=== PATIENT | female | born 1955 | race Caucasian/White ===

== ENCOUNTER 2018-04-13 14:37 | Day surgery (SDC) | payer MEDICARE, MEDICAID ==
[~2018-04-13] VITALS: Ht 156.2 cm; Wt 65.8 kg
[2018-04-13] VITALS (9 sets, daily range): BP systolic 105–158; BP diastolic 53–95
[2018-04-13] MEDS ORDERED: diphenhydrAMINE 25mg capsule PO PRN (15:00)
[2018-04-13] MEDS ORDERED: LORazepam 0.5 MG tablet PO PRN (15:00)
[2018-04-13] MEDS ORDERED: normal saline 1000ml 1,000 ML IV SCH ×2 (15:00→18:10)
[2018-04-13] MEDS ORDERED: ALBU2.5V13 NEB (16:34)
[2018-04-13] MEDS ORDERED: LORA10TA7 PO (16:34)
[2018-04-13] MEDS ORDERED: LOSA100T15 PO (16:34)
[2018-04-13] MEDS ORDERED: AMLO5TAB PO (16:34)
[2018-04-13] MEDS ORDERED: MELA3TAB PO (16:34)
[2018-04-13] MEDS ORDERED: AMA100C PO (16:34)
[2018-04-13] MEDS ORDERED: ZOLP10TA5 PO (16:34)
[2018-04-13] MEDS ORDERED: ATOR40TA71 PO (16:34)
[2018-04-13] MEDS ORDERED: OMEP20CA10 PO (16:34)
[2018-04-13] MEDS ORDERED: OXCA300T52 PO (16:34)
[2018-04-13] MEDS ORDERED: MONT10TA21 PO (16:34)
[2018-04-13] MEDS ORDERED: RIVA15TA PO (16:34)
[2018-04-13] MEDS ORDERED: ARIP20TA4 PO (16:34)
[2018-04-13] MEDS ORDERED: VENL150C58 PO (16:34)
[2018-04-13] MEDS ORDERED: OXYB5TAB29 PO (16:34)
[2018-04-13] MEDS ORDERED: pneumococcal 23-VAL P-sac vacc 25 mcg/0.5ml vial IMVAC ONE (17:25)
[2018-04-13] MEDS ORDERED: HYDROcodone/acetaminophen 5mg/325mg tablet PO PRN (18:10)
[2018-04-13] MEDS ORDERED: acetaminophen 325mg tablet PO PRN (18:15)
[2018-04-13] MEDS ORDERED: HYDROcodone/acetaminophen 10/325mg tab PO PRN (18:15)
[2018-04-13] MEDS ORDERED: iohexol 350MG/ML 100ml bottle IV ONE (19:01)
[2018-04-13] MEDS ORDERED: lidocaine 1%/epinephrine 1:100,000 injection 50ml vial ONE (19:01)
[2018-04-13] MEDS ORDERED: iohexol 350 MG/ML 50ML vial IV ONE (19:01)
[2018-04-13] MEDS ORDERED: heparin 1,000unit/ml 10ml vial 10 ML ONE (19:01)
[2018-04-13] MEDS ORDERED: DOPamine 400mg/D5W 250ml 0 ML IV ONE (19:02)
[2018-04-13] MEDS ORDERED: atropine 0.1mg/ml 10ml syringe ONE (19:02)
== END 2018-04-13 20:20 | disposition home or self-care (01) ==
LOC: SSTAY O 14:37
PROVIDERS: ATTEND Internal Medicine Interventional Cardiology
DX: I65.23 Occlusion and stenosis of bilateral carotid arteries (principal); J44.9 Chronic obstructive pulmonary disease, unspecified; I10 Essential (primary) hypertension; I35.0 Nonrheumatic aortic (valve) stenosis; E78.5 Hyperlipidemia, unspecified; F17.210 Nicotine dependence, cigarettes, uncomplicated; F32.9 Major depressive disorder, single episode, unspecified; F12.90 Cannabis use, unspecified, uncomplicated; J96.11 Chronic respiratory failure with hypoxia; K21.9 Gastro-esophageal reflux disease without esophagitis; Z86.69 Personal history of other diseases of the nervous system and sense organs; Z99.81 Dependence on supplemental oxygen; Z90.49 Acquired absence of other specified parts of digestive tract; Z90.89 Acquired absence of other organs; Z79.01 Long term (current) use of anticoagulants; Z86.711 Personal history of pulmonary embolism; Z95.828 Presence of other vascular implants and grafts; Z79.899 Other long term (current) drug therapy; Z98.890 Other specified postprocedural states; Z83.3 Family history of diabetes mellitus
CPT/HCPCS: 36223; 93005; A6257; C1760; C1769; C1894; J1644; J3490; J7030; Q0163; Q9967; A4620; J0461; J1265

== ENCOUNTER 2021-12-06 19:51 | Inpatient (IN) | payer MEDICARE, MEDICAID ==
[~2021-12-06] VITALS: Ht 154.9 cm; Wt 69.0 kg
[~2021-12-06 19:51] MED LIST: ALBU2.5V13 NEB; AMA100C PO; AMLO5TAB PO; ARIP20TA4 PO; ATOR40TA71 PO; LORA10TA7 PO; LOSA100T57 PO; MELA3TAB39 PO; MONT10TA21 PO; OMEP20CA15 PO; OXCA300T52 PO; OXYB5TAB29 PO; RIVA15TA PO; VENL150C58 PO; ZOLP10TA5 PO
[2021-12-06] MEDS ORDERED: normal saline 1000ML IV soln IVB ONE (20:10)
[2021-12-06] MEDS ORDERED: morphine 4 MG/ML inj SYRINge IV PRN (20:10)
[2021-12-06] MEDS ORDERED: ondansetron/PF 4mg/2ml inj IV ONE (20:10)
[2021-12-06] MEDS ORDERED: iohexol 350MG/ML 100ml bottle IV ONE (20:16)
[2021-12-06 20:37] LABS: BASOPHILS # (AUTO) 0.1 X10'3 (0-0.2); BASOPHILS % (AUTO) 0.7 % (0-1); EOSINOPHILS # (AUTO) 0.2 X10'3 (0-0.9); EOSINOPHILS % (AUTO) 0.9 % (0-6); HEMATOCRIT 27.5 % (35.0-45.0); HEMOGLOBIN 8.7 g/dl (12.0-16.0); LYMPHOCYTES # (AUTO) 2.5 X10'3 (1.1-4.8); LYMPHOCYTES % (AUTO) 15.2 % (21-51); MEAN CORPUSCULAR HEMOGLOBIN 22.6 PG (27.0-31.0); MEAN CORPUSCULAR HGB CONC 31.7 g/dL (33.0-36.5); MEAN CORPUSCULAR VOLUME 71.2 FL (78-98); MEAN PLATELET VOLUME 10.2 FL (7.4-10.4); MONOCYTES % (AUTO) 6.1 % (2-12); NEUTROPHILS # (AUTO) 12.8 X10'3 (1.8-7.7); NEUTROPHILS % (AUTO) 77.1 % (42-75); PLATELET COUNT 440 X10'3 (140-440); RED BLOOD COUNT 3.86 X10'6 (4.20-5.60); RED CELL DISTRIBUTION WIDTH 19.2 % (11.5-14.5); WHITE BLOOD COUNT 16.6 X10'3 (4.5-11.0)
[2021-12-06] MEDS ORDERED: piperacillin/tazo 3.375gm/50ml 50 ML IV ONE (20:45)
[2021-12-06 20:55] LABS: ALANINE AMINOTRANSFERASE 13 U/L (12-78); ALBUMIN 3.5 G/DL (3.4-5.0); ALBUMIN/GLOBULIN RATIO 0.9 (1.1-1.5); ALKALINE PHOSPHATASE 111 IU/L (46-116); ANION GAP 14 (8-16); ASPARTATE AMINO TRANSFERASE 11 U/L (10-37); BILIRUBIN,TOTAL 0.5 MG/DL (0.1-1.0); BLOOD UREA NITROGEN 32 MG/DL (7-18); BUN/CREATININE RATIO 14.9 (6.6-38.0); CALCIUM 9.2 MG/DL (8.5-10.1); CHLORIDE 100 MMOL/L (99-107); CREATININE 2.15 MG/DL (0.40-0.90); GLUCOSE 158 MG/DL (70-104); SODIUM 138 MMOL/L (135-145); TOTAL CARBON DIOXIDE 24.5 MMOL/L (24-32); TOTAL PROTEIN 7.3 G/DL (6.4-8.2); eGFR 23 ML/MIN
[2021-12-06 21:04] LABS: HYPOCHROMASIA 1+; PLATELET ESTIMATE NORMAL
[2021-12-06 21:06] LABS: ANISOCYTOSIS 2+; ELLIPTOCYTES 1+; MICROCYTOSIS 1+; SCHISTOCYTES FEW; TARGET CELLS FEW
[2021-12-06 22:36] LABS: CLARITY,URINE CLEAR (Clear); COLOR,URINE YELLOW (Yellow); GLUCOSE, URINE NEGATIVE (Neg); KETONES,URINE NEGATIVE (Neg); LEUKOCYTE ESTERASE ,URINE TRACE (Neg); NITRITES, URINE NEGATIVE (Neg); OCCULT BLOOD,URINE NEGATIVE (Neg); PH,URINE 6.5 (4.8-8.0); PROTEIN,URINE TRACE mg/dl (Neg); UROBILINOGEN,URINE 0.2 E.U/dL (0.2-1.0)
[2021-12-06 22:43] LABS: UA COLLECTION TYPE STRAIGHT CATH
[2021-12-06 22:50] LABS: BACTERIA,URINE FEW /HPF (Neg); RBC,URINE NONE SEEN /HPF (0-2); SQUAMOUS EPITHELIAL CELL,UR FEW /LPF (FEW); TRANSITIONAL EPI CELLS,URINE FEW /HPF; WBC,URINE 0-4 /HPF (0-4)
[2021-12-06] MEDS: pantoprazole 40MG/NS 100ML BAG 100 ML IV SCH (23:44)
[2021-12-07] VITALS (13 sets, daily range): BP systolic 107–163; BP diastolic 33–70
[2021-12-07] MEDS ORDERED: ondansetron/PF 4mg/2ml inj IV PRN (00:10)
[2021-12-07] MEDS ORDERED: mag hydrox/Alum hydrox/simeth 30ml oral suspension PO PRN (00:10)
[2021-12-07] MEDS ORDERED: magnesium 2GM in 50ml NS 50 ML IV PRN (00:10)
[2021-12-07] MEDS ORDERED: magnesium hydroxide 30ml (MOM) UD suspension PO PRN (00:10)
[2021-12-07] MEDS ORDERED: magnesium 4gm in 100ml NS 100 ML IV PRN (00:10)
[2021-12-07] MEDS ORDERED: acetaminophen 325mg tablet PO PRN (00:10)
[2021-12-07] MEDS ORDERED: potassium CL 10mEq/100ml bag 100 ML IV PRN (00:10)
[2021-12-07] MEDS ORDERED: morphine 2 MG/ML inj. syringe IV PRN ×2 (00:10)
[2021-12-07] MEDS: normal saline 1000ml 1,000 ML IV SCH ×2 (00:37→12:50)
[2021-12-07] MEDS: pantoprazole 40MG/NS 100ML BAG 100 ML IV SCH ×5 (01:00→20:40)
[2021-12-07 03:03] LABS: MAGNESIUM 1.6 MG/DL (1.5-2.4)
[2021-12-07] MEDS ORDERED: PANT40TA54 PO (04:25)
--- NOTE | 2021-12-07 07:05 | NUR ---
Pt sleeping, no apparent distress or needs at this time.
[2021-12-07] MEDS: K and/or MAG REPLACEMENT MC SCH ×2 (08:00→20:00)
[2021-12-07] MEDS: atorvastatin 20mg tablet PO SCH (08:25)
[2021-12-07] MEDS: venlafaxine XR 75mg capsule (Q24H) PO SCH (08:25)
[2021-12-07] MEDS: ARIPIPRAZOLE 10 MG TABLET PO SCH (08:25)
[2021-12-07] MEDS: oxybutynin 5mg tablet PO SCH ×2 (08:26→20:39)
[2021-12-07] MEDS: docusate sod 100mg capsule PO SCH ×2 (08:26→20:39)
[2021-12-07] MEDS: loratadine 10mg tablet PO SCH (08:26)
--- NOTE | 2021-12-07 08:30 | NUR ---
Gave pt morning meds. Assisted to bedside commode. Pt tired, wants to go back to sleep. Warm blankets provided.
--- NOTE | 2021-12-07 09:25 | NUR ---
Pt to GI lab with tech.
[2021-12-07] MEDS ORDERED: MIDAZolam 1 MG/ML 5ML VIAL ONE (09:26)
[2021-12-07] MEDS ORDERED: fentaNYL/PF 50MCG/1 ML 2ML syringe ONE (09:26)
[2021-12-07] MEDS ORDERED: LIDOcaine Viscous 15ml cup ONE (09:26)
[2021-12-07] MEDS ORDERED: PEG 3350/Na sulf,bicarb,Cl/KCl oral sol 4 liter bottle PO ONE (10:25)
[2021-12-07 13:02] LABS: ALANINE AMINOTRANSFERASE 10 U/L (12-78); ALBUMIN 2.4 G/DL (3.4-5.0); ALBUMIN/GLOBULIN RATIO 0.8 (1.1-1.5); ALKALINE PHOSPHATASE 78 IU/L (46-116); ANION GAP 9 (8-16); ASPARTATE AMINO TRANSFERASE 11 U/L (10-37); BILIRUBIN,TOTAL 0.3 MG/DL (0.1-1.0); BLOOD UREA NITROGEN 21 MG/DL (7-18); BUN/CREATININE RATIO 18.4 (6.6-38.0); CALCIUM 8.3 MG/DL (8.5-10.1); CHLORIDE 109 MMOL/L (99-107); CREATININE 1.14 MG/DL (0.40-0.90); GLUCOSE 69 MG/DL (70-104); LIPASE 85 U/L (73-393); POTASSIUM 3.9 MMOL/L (3.5-5.1); SODIUM 140 MMOL/L (135-145); TOTAL CARBON DIOXIDE 22.1 MMOL/L (24-32); TOTAL PROTEIN 5.3 G/DL (6.4-8.2); eGFR 48 ML/MIN
[2021-12-07 14:11] LABS: BASOPHILS # (AUTO) 0.1 X10'3 (0-0.2); BASOPHILS % (AUTO) 0.4 % (0-1); EOSINOPHILS # (AUTO) 0.3 X10'3 (0-0.9); EOSINOPHILS % (AUTO) 1.9 % (0-6); LYMPHOCYTES # (AUTO) 3.6 X10'3 (1.1-4.8); LYMPHOCYTES % (AUTO) 24.1 % (21-51); MEAN CORPUSCULAR HEMOGLOBIN 22.2 PG (27.0-31.0); MEAN CORPUSCULAR HGB CONC 30.6 g/dL (33.0-36.5); MEAN CORPUSCULAR VOLUME 72.5 FL (78-98); MEAN PLATELET VOLUME 9.9 FL (7.4-10.4); MONOCYTES # (AUTO) 1.2 X10'3 (0-0.9); NEUTROPHILS # (AUTO) 9.8 X10'3 (1.8-7.7); NEUTROPHILS % (AUTO) 65.6 % (42-75); PLATELET COUNT 298 X10'3 (140-440); RED BLOOD COUNT 2.95 X10'6 (4.20-5.60); RED CELL DISTRIBUTION WIDTH 19.2 % (11.5-14.5); WHITE BLOOD COUNT 14.9 X10'3 (4.5-11.0)
[2021-12-07 14:20] LABS: HEMOGLOBIN 6.6 g/dl (12.0-16.0)
[2021-12-07 14:21] LABS: HEMATOCRIT 21.4 % (35.0-45.0)
--- NOTE | 2021-12-07 14:25 | NUR ---
CRITICAL LAB CALLED. PAGE SENT TO DR. VILLAREAL TO INFORM OF LAB RESULTS. PAGER ID: [phone] MESSAGE: ER BED #4. NEELA--HGB 6.6 AND HCT 21.4. CALL ER WITH ANY QUESTIONS. CAITY KELLEY [id number]
[2021-12-07 14:38] LABS: ANISOCYTOSIS 2+; ELLIPTOCYTES FEW; HYPOCHROMASIA 1+; MICROCYTOSIS 1+; PLATELET ESTIMATE NORMAL; POLYCHROMASIA FEW; TEAR DROP CELLS FEW
[2021-12-07 14:39] LABS: ACANTHOCYTES FEW; BURR CELLS FEW
--- NOTE | 2021-12-07 14:49 | NUR ---
Family at bedside.
--- NOTE | 2021-12-07 15:48 | NUR ---
Patient in room ED 4. I have received report from WARREN CAROLINA ER TRAVELER and had the opportunity to ask questions and assume patient care.
--- NOTE | 2021-12-07 16:32 | NUR ---
PAGER ID: [phone] MESSAGE: Italia Plasencia#[phone]- Pt is on the floor infusing 1unit of blood, pt would benefit from at least 24 hr telli monitor. Please advise. Bruna fox [phone]
--- NOTE | 2021-12-07 16:47 | NUR ---
PAGER ID: [phone] MESSAGE: Italia Plasencia#[phone]- Pt is on the floor infusing 1unit of blood, pt would benefit from at least 24 hr telli monitor. Please advise. Bruna fox [phone] Addendum: 12/07/21 at 1825 by Bruna Whyte RN Dr Kemp did not want telli monitoring on pt.
--- NOTE | 2021-12-07 18:30 | NUR ---
Problems reprioritized. Patient report given, questions answered & plan of care reviewed with Karena CAROLINA.
--- NOTE | 2021-12-07 18:30 | NUR ---
Patient in room ORTHO 4023. I have received report from Bruna CAROLINA and had the opportunity to ask questions and assume patient care.
[2021-12-07] MEDS: Melatonin 3mg tablet PO SCH (20:40)
[2021-12-07 21:50] LABS: HEMATOCRIT 24.2 % (35.0-45.0); HEMOGLOBIN 7.8 g/dl (12.0-16.0); MEAN CORPUSCULAR HEMOGLOBIN 24.1 PG (27.0-31.0); MEAN CORPUSCULAR HGB CONC 32.1 g/dL (33.0-36.5); PLATELET COUNT 262 X10'3 (140-440); RED BLOOD COUNT 3.23 X10'6 (4.20-5.60); RED CELL DISTRIBUTION WIDTH 19.8 % (11.5-14.5); WHITE BLOOD COUNT 13.4 X10'3 (4.5-11.0)
[2021-12-08] VITALS (11 sets, daily range): BP systolic 104–163; BP diastolic 38–73
[2021-12-08] MEDS: pantoprazole 40MG/NS 100ML BAG 100 ML IV SCH ×5 (02:47→21:25)
[2021-12-08] MEDS: normal saline 1000ml 1,000 ML IV SCH (02:59)
[2021-12-08 05:56] LABS: BASOPHILS # (AUTO) 0.1 X10'3 (0-0.2); BASOPHILS % (AUTO) 0.6 % (0-1); EOSINOPHILS # (AUTO) 0.2 X10'3 (0-0.9); HEMATOCRIT 26.3 % (35.0-45.0); HEMOGLOBIN 8.3 g/dl (12.0-16.0); LYMPHOCYTES # (AUTO) 2.2 X10'3 (1.1-4.8); LYMPHOCYTES % (AUTO) 18.4 % (21-51); MEAN CORPUSCULAR HEMOGLOBIN 24.1 PG (27.0-31.0); MEAN CORPUSCULAR HGB CONC 31.5 g/dL (33.0-36.5); MEAN CORPUSCULAR VOLUME 76.3 FL (78-98); MEAN PLATELET VOLUME 10.3 FL (7.4-10.4); MONOCYTES # (AUTO) 0.8 X10'3 (0-0.9); MONOCYTES % (AUTO) 6.7 % (2-12); NEUTROPHILS # (AUTO) 8.6 X10'3 (1.8-7.7); NEUTROPHILS % (AUTO) 72.3 % (42-75); PLATELET COUNT 272 X10'3 (140-440); RED BLOOD COUNT 3.45 X10'6 (4.20-5.60); RED CELL DISTRIBUTION WIDTH 19.6 % (11.5-14.5); WHITE BLOOD COUNT 11.9 X10'3 (4.5-11.0)
[2021-12-08 06:11] LABS: % IRON SATURATION 23 % (11-46); IRON 69 UG/DL (49-151); TOTAL IRON BINDING CAPACITY 301 UG/DL (259-388)
--- NOTE | 2021-12-08 06:15 | NUR ---
Patient in room ORTHO 4023. I have received report from NAEEM CAROLINA and had the opportunity to ask questions and assume patient care.
[2021-12-08 06:21] LABS: ALANINE AMINOTRANSFERASE 13 U/L (12-78); ALBUMIN 2.6 G/DL (3.4-5.0); ALBUMIN/GLOBULIN RATIO 0.9 (1.1-1.5); ALKALINE PHOSPHATASE 80 IU/L (46-116); ANION GAP 11 (8-16); ASPARTATE AMINO TRANSFERASE 12 U/L (10-37); BILIRUBIN,TOTAL 0.5 MG/DL (0.1-1.0); BLOOD UREA NITROGEN 18 MG/DL (7-18); BUN/CREATININE RATIO 17.1 (6.6-38.0); CALCIUM 8.1 MG/DL (8.5-10.1); CHLORIDE 109 MMOL/L (99-107); CREATININE 1.05 MG/DL (0.40-0.90); SODIUM 142 MMOL/L (135-145); TOTAL CARBON DIOXIDE 21.6 MMOL/L (24-32); TOTAL PROTEIN 5.5 G/DL (6.4-8.2); eGFR 53 ML/MIN
[2021-12-08 06:28] LABS: GLUCOSE 41 MG/DL (70-104)
--- NOTE | 2021-12-08 06:30 | NUR ---
morning labs report blood glucose 41. pt given orange juice po. pt fully awake and alert w/o complaints.
--- NOTE | 2021-12-08 06:40 | NUR ---
Problems reprioritized. Patient report given, questions answered & plan of care reviewed with Melania CAROLINA.
--- NOTE | 2021-12-08 06:45 | NUR ---
acucheck sugar after juice po=71
--- NOTE | 2021-12-08 06:55 | NUR ---
PT ALERT. SLIGHTLY DROWSY BUT AROUSES EASILY. SKIN WARM AND DRY.
[2021-12-08] MEDS: venlafaxine XR 75mg capsule (Q24H) PO SCH (08:00)
[2021-12-08] MEDS: ARIPIPRAZOLE 10 MG TABLET PO SCH (08:00)
[2021-12-08] MEDS: oxybutynin 5mg tablet PO SCH ×2 (08:00→21:23)
[2021-12-08] MEDS: K and/or MAG REPLACEMENT MC SCH ×2 (08:00→20:00)
[2021-12-08] MEDS: atorvastatin 20mg tablet PO SCH (08:00)
[2021-12-08] MEDS: docusate sod 100mg capsule PO SCH ×2 (08:00→20:00)
[2021-12-08] MEDS: loratadine 10mg tablet PO SCH (08:00)
[2021-12-08] MEDS ORDERED: fentaNYL/PF 50MCG/1 ML 2ML syringe ONE (08:28)
[2021-12-08] MEDS ORDERED: MIDAZolam 1 MG/ML 5ML VIAL ONE (08:28)
--- NOTE | 2021-12-08 08:46 | NUR ---
Malnutrition consult: Pt admitted w/ a few-days occurrence of nausea, vomiting, and abd pain per EMR. EGD showed mild errosive gastritis. Pt appears WD/WN when observed at bedside. Pt reports that she gets full from her meals easily and may have lost some wt recently though is unsure of the exact amount. Currently on Clear liquid diet. No edema noted. At this time pt does not meet minimum criteria for malnutrition. Will continue to monitor. Addendum: 12/08/21 at [address] Amended: Links added.
--- NOTE | 2021-12-08 11:10 | NUR ---
RETURNED TO ROOM FROM GI LAB. AWAKE. IN NO DISTRESS. VSS
--- NOTE | 2021-12-08 11:30 | NUR ---
VITALS REMAIN STABLE POST COLONOSCOPY. PT OFFERS NO COMPLAINTS. RESTING COMFORTABLY. NO RECTAL BLEEDING NOTED
--- NOTE | 2021-12-08 18:15 | NUR ---
Problems reprioritized. Patient report given, questions answered & plan of care reviewed with NAEEM CAROLINA.
--- NOTE | 2021-12-08 18:45 | NUR ---
Patient in room ORTHO 4023. I have received report from Teodora CAROLINA and had the opportunity to ask questions and assume patient care.
[2021-12-08] MEDS: Melatonin 3mg tablet PO SCH (21:23)
[2021-12-08] MEDS: nicotine 14mg patch - 24hr TD SCH (21:39)
[2021-12-09] MEDS: normal saline 1000ml 1,000 ML IV SCH ×3 (02:10→15:10)
[2021-12-09] MEDS: pantoprazole 40MG/NS 100ML BAG 100 ML IV SCH ×5 (02:32→23:46)
[2021-12-09 06:00] VITALS: BP 125/50
[2021-12-09 06:03] LABS: BASOPHILS % (AUTO) 0.4 % (0-1); EOSINOPHILS # (AUTO) 0.3 X10'3 (0-0.9); EOSINOPHILS % (AUTO) 3.1 % (0-6); HEMATOCRIT 27.7 % (35.0-45.0); HEMOGLOBIN 8.8 g/dl (12.0-16.0); LYMPHOCYTES # (AUTO) 1.9 X10'3 (1.1-4.8); LYMPHOCYTES % (AUTO) 18.6 % (21-51); MEAN CORPUSCULAR HEMOGLOBIN 23.9 PG (27.0-31.0); MEAN CORPUSCULAR HGB CONC 31.9 g/dL (33.0-36.5); MEAN CORPUSCULAR VOLUME 74.8 FL (78-98); MEAN PLATELET VOLUME 10.3 FL (7.4-10.4); MONOCYTES # (AUTO) 0.8 X10'3 (0-0.9); MONOCYTES % (AUTO) 7.9 % (2-12); NEUTROPHILS # (AUTO) 7.3 X10'3 (1.8-7.7); PLATELET COUNT 301 X10'3 (140-440); RED CELL DISTRIBUTION WIDTH 20.7 % (11.5-14.5); WHITE BLOOD COUNT 10.4 X10'3 (4.5-11.0)
[2021-12-09 06:23] LABS: ALANINE AMINOTRANSFERASE 14 U/L (12-78); ALBUMIN 2.5 G/DL (3.4-5.0); ALBUMIN/GLOBULIN RATIO 0.9 (1.1-1.5); ALKALINE PHOSPHATASE 76 IU/L (46-116); ANION GAP 7 (8-16); ASPARTATE AMINO TRANSFERASE 11 U/L (10-37); BILIRUBIN,TOTAL 0.4 MG/DL (0.1-1.0); BLOOD UREA NITROGEN 12 MG/DL (7-18); BUN/CREATININE RATIO 11.5 (6.6-38.0); CALCIUM 8.6 MG/DL (8.5-10.1); CHLORIDE 111 MMOL/L (99-107); CREATININE 1.04 MG/DL (0.40-0.90); GLUCOSE 89 MG/DL (70-104); POTASSIUM 3.8 MMOL/L (3.5-5.1); SODIUM 143 MMOL/L (135-145); TOTAL CARBON DIOXIDE 24.9 MMOL/L (24-32); TOTAL PROTEIN 5.4 G/DL (6.4-8.2); eGFR 53 ML/MIN
--- NOTE | 2021-12-09 06:40 | NUR ---
Patient in room ORTHO 4023a. I have received report from Karena, and had the opportunity to ask questions and assume patient care.
--- NOTE | 2021-12-09 06:45 | NUR ---
Patient in room ORTHO 4023. I have received report from CAITY Thurston and had the opportunity to ask questions and assume patient care.
--- NOTE | 2021-12-09 06:50 | NUR ---
Problems reprioritized. Patient report given, questions answered & plan of care reviewed with Ana Jim.
[2021-12-09] MEDS: K and/or MAG REPLACEMENT MC SCH ×2 (08:00→20:00)
[2021-12-09] MEDS: venlafaxine XR 75mg capsule (Q24H) PO SCH (09:49)
[2021-12-09] MEDS: oxybutynin 5mg tablet PO SCH ×2 (09:49→20:09)
[2021-12-09] MEDS: loratadine 10mg tablet PO SCH (09:49)
[2021-12-09] MEDS: docusate sod 100mg capsule PO SCH ×2 (09:49→20:00)
[2021-12-09] MEDS: atorvastatin 20mg tablet PO SCH (09:50)
[2021-12-09] MEDS: ARIPIPRAZOLE 10 MG TABLET PO SCH (09:50)
[2021-12-09 10:00] VITALS: BP 163/50
--- NOTE | 2021-12-09 14:14 | NUR ---
CAITY Chavez from angio stated, per Dr Berman, pt needs to be NPO for angio procedure, which will be done in am,therefore pt needs to be NPO after midnight tonight for procedure in am.
[2021-12-09] MEDS ORDERED: midazolam 1 mg/ML 2ml injection ONE (14:59)
[2021-12-09] MEDS ORDERED: iohexol 300 MG/1 ML 50ml polymer ONE (14:59)
[2021-12-09] MEDS ORDERED: fentaNYL/PF 50MCG/1 ML 2ML syringe ONE (14:59)
[2021-12-09] MEDS ORDERED: LIDOcaine 1%/PF 5ML 10 MG/ML VIAL ONE (14:59)
[2021-12-09] MEDS ORDERED: heparin 1,000 UNITS/NS 500ml 500 ML ONE (15:03)
--- NOTE | 2021-12-09 15:10 | NUR ---
Pt was taken to Angio via bed for mesenteric angiography per Dr Willson/Dr Berman.
[2021-12-09 18:00] VITALS: BP 177/69
--- NOTE | 2021-12-09 18:10 | NUR ---
Patient report given to Karena, and questions answered at the bedside w/ assessment of groin and shadow drainage on R groin drsg.
--- NOTE | 2021-12-09 18:15 | NUR ---
Patient in room ORTHO 4023. I have received report from Ana CAROLINA and had the opportunity to ask questions and assume patient care.
[2021-12-09] MEDS ORDERED: metoprolol tartrate 1mg/ml inj IV PRN (19:00)
[2021-12-09] MEDS ORDERED: aminophylline 250mg/10ml inj. IV PRN (19:00)
[2021-12-09] MEDS ORDERED: nitroGLYCERIN 0.4mg SUBLingual tab SL PRN (19:00)
[2021-12-09] MEDS ORDERED: regadenoson 0.4mg/5ml syringe IV PRN (19:00)
--- NOTE | 2021-12-09 19:09 | NUR ---
Please call regarding HANG Thurston [phone]
[2021-12-09] MEDS: Melatonin 3mg tablet PO SCH (20:09)
[2021-12-09] MEDS: oxyCODONE/APAP 5-325mg tablet PO PRN ×2 (20:10→23:49)
[2021-12-09] MEDS: nicotine 14mg patch - 24hr TD SCH ×2 (20:12→21:00)
[2021-12-09 22:00] VITALS: BP 96/49
[2021-12-10] VITALS (11 sets, daily range): BP systolic 69–157; BP diastolic 38–71
[2021-12-10] MEDS: pantoprazole 40MG/NS 100ML BAG 100 ML IV SCH ×2 (00:52→05:15)
[2021-12-10] MEDS: normal saline 1000ml 1,000 ML IV SCH ×3 (03:15→05:14)
--- NOTE | 2021-12-10 04:28 | NUR ---
At the beginning of this shift patient was on post procedure VS. BP getting higher and higher with systolic reaching 191. Called MD for an order of BP med which he gave along with order for pain med. During this time the IV to RLE had infiltrated. On third attempt, new IV gotten by the charger. At this time BP had come down and did not need to give hydralazine.
--- NOTE | 2021-12-10 05:26 | NUR ---
Called/paged hospitalist as took accu check on pt who has been NPO since actually yesterday morning due to tests and blood sugar was 59. Did this with patients permission as she had also been low day before with blood sugar of 41. upset wanting to know why I had taken an accu check on a non-diabetic patient. I informed MD that pt. had wanted it. stated "that as she is not a diabetic, 59 was low but ok as she had been NPO". Asked about at least changing her IV fluid as normal saline running and received a new order for D%1/2 NS.
[2021-12-10] MEDS: dextrose 5%-1/2 normal saline 1,000 ML IV SCH ×2 (05:49→19:13)
[2021-12-10 07:07] LABS: BASOPHILS # (AUTO) 0.1 X10'3 (0-0.2); BASOPHILS % (AUTO) 0.9 % (0-1); EOSINOPHILS # (AUTO) 0.2 X10'3 (0-0.9); EOSINOPHILS % (AUTO) 2.7 % (0-6); HEMATOCRIT 27.5 % (35.0-45.0); HEMOGLOBIN 8.9 g/dl (12.0-16.0); LYMPHOCYTES # (AUTO) 2.2 X10'3 (1.1-4.8); LYMPHOCYTES % (AUTO) 24.9 % (21-51); MEAN CORPUSCULAR HEMOGLOBIN 24.1 PG (27.0-31.0); MEAN CORPUSCULAR HGB CONC 32.5 g/dL (33.0-36.5); MEAN CORPUSCULAR VOLUME 74.3 FL (78-98); MEAN PLATELET VOLUME 10.3 FL (7.4-10.4); MONOCYTES % (AUTO) 10.9 % (2-12); NEUTROPHILS # (AUTO) 5.3 X10'3 (1.8-7.7); NEUTROPHILS % (AUTO) 60.6 % (42-75); PLATELET COUNT 258 X10'3 (140-440); RED CELL DISTRIBUTION WIDTH 20.3 % (11.5-14.5); WHITE BLOOD COUNT 8.7 X10'3 (4.5-11.0)
--- NOTE | 2021-12-10 07:15 | NUR ---
Patient did not drink 800 as charted by teddy. She had 100cc with pills only.
--- NOTE | 2021-12-10 07:18 | NUR ---
Unfortunately, lost the recorded post op vitals.
--- NOTE | 2021-12-10 07:19 | NUR ---
Patient report given to Pascual CAROLINA.
[2021-12-10 07:36] LABS: ALANINE AMINOTRANSFERASE 12 U/L (12-78); ALBUMIN 2.5 G/DL (3.4-5.0); ALBUMIN/GLOBULIN RATIO 0.8 (1.1-1.5); ALKALINE PHOSPHATASE 80 IU/L (46-116); ANION GAP 8 (8-16); ASPARTATE AMINO TRANSFERASE 12 U/L (10-37); BILIRUBIN,TOTAL 0.6 MG/DL (0.1-1.0); BLOOD UREA NITROGEN 10 MG/DL (7-18); BUN/CREATININE RATIO 10.1 (6.6-38.0); CALCIUM 7.9 MG/DL (8.5-10.1); CHLORIDE 108 MMOL/L (99-107); CREATININE 0.99 MG/DL (0.40-0.90); GLUCOSE 72 MG/DL (70-104); POTASSIUM 3.4 MMOL/L (3.5-5.1); SODIUM 141 MMOL/L (135-145); TOTAL CARBON DIOXIDE 25.2 MMOL/L (24-32); TOTAL PROTEIN 5.5 G/DL (6.4-8.2); eGFR 56 ML/MIN
[2021-12-10] MEDS: nicotine 14mg patch - 24hr TD SCH (07:47)
[2021-12-10] MEDS: atorvastatin 20mg tablet PO SCH (07:48)
[2021-12-10] MEDS: ARIPIPRAZOLE 10 MG TABLET PO SCH (07:48)
[2021-12-10] MEDS: venlafaxine XR 75mg capsule (Q24H) PO SCH (07:48)
[2021-12-10] MEDS: oxybutynin 5mg tablet PO SCH ×2 (07:48→19:10)
[2021-12-10] MEDS: loratadine 10mg tablet PO SCH (07:48)
[2021-12-10] MEDS: docusate sod 100mg capsule PO SCH ×2 (08:00→19:11)
[2021-12-10] MEDS: K and/or MAG REPLACEMENT MC SCH ×2 (08:00→19:03)
[2021-12-10 08:01] LABS: APTT 25 SECONDS (22-32)
[2021-12-10] MEDS ORDERED: ipratropium/albuterol 3ml nebule NEB PRN ×2 (13:00→17:25)
[2021-12-10] MEDS ORDERED: aminophylline 500mg/20ml vial IV PRN (13:15)
[2021-12-10] MEDS ORDERED: POTASSIUM BICARB 20meq eff tab 20 MEQ TABLET.EFF PO PRN (15:50)
[2021-12-10] MEDS ORDERED: magnesium 4gm in 100ml NS 100 ML IV PRN (15:50)
[2021-12-10] MEDS ORDERED: magnesium 2GM in 50ml NS 50 ML IV PRN (15:50)
[2021-12-10] MEDS ORDERED: potassium CL 10mEq/100ml bag 100 ML IV PRN (15:50)
[2021-12-10] MEDS: ipratropium/albuterol 3ml nebule NEB SCH ×3 (16:23→23:00)
[2021-12-10 16:31] LABS: POTASSIUM 3.5 MMOL/L (3.5-5.1)
[2021-12-10 16:34] LABS: MAGNESIUM 0.9 MG/DL (1.5-2.4)
[2021-12-10] MEDS: magnesium Cl slow-release 64mg tablet PO PRN (16:45)
--- NOTE | 2021-12-10 16:45 | NUR ---
Scanner not working on computer. Slow Mag was checked 3 times. Correct medication.
[2021-12-10] MEDS ORDERED: PERFLUTREN PROTEIN-A MICROSPHR (Optison) 0.22 MG/ML 3ML VIAL IV PRN (17:25)
[2021-12-10] MEDS: oxyCODONE/APAP 10/325mg tablet PO PRN (19:10)
[2021-12-10] MEDS ORDERED: K and/or MAG REPLACEMENT MC SCH (20:00)
[2021-12-10] MEDS: Melatonin 3mg tablet PO SCH (20:15)
[2021-12-11] VITALS (10 sets, daily range): BP systolic 73–148; BP diastolic 40–70
[2021-12-11] MEDS: dextrose 5%-1/2 normal saline 1,000 ML IV SCH (03:24)
--- NOTE | 2021-12-11 06:10 | NUR ---
RECEIVED REPORT FROM CAITY NUNES
[2021-12-11 07:27] LABS: BASOPHILS % (AUTO) 0.4 % (0-1); EOSINOPHILS # (AUTO) 0.3 X10'3 (0-0.9); EOSINOPHILS % (AUTO) 2.5 % (0-6); HEMATOCRIT 26.4 % (35.0-45.0); HEMOGLOBIN 8.3 g/dl (12.0-16.0); LYMPHOCYTES # (AUTO) 1.5 X10'3 (1.1-4.8); LYMPHOCYTES % (AUTO) 13.8 % (21-51); MEAN CORPUSCULAR HEMOGLOBIN 23.4 PG (27.0-31.0); MEAN CORPUSCULAR HGB CONC 31.4 g/dL (33.0-36.5); MEAN CORPUSCULAR VOLUME 74.6 FL (78-98); MONOCYTES # (AUTO) 0.9 X10'3 (0-0.9); MONOCYTES % (AUTO) 8.1 % (2-12); NEUTROPHILS # (AUTO) 8.4 X10'3 (1.8-7.7); NEUTROPHILS % (AUTO) 75.2 % (42-75); PLATELET COUNT 268 X10'3 (140-440); RED BLOOD COUNT 3.55 X10'6 (4.20-5.60); RED CELL DISTRIBUTION WIDTH 20.6 % (11.5-14.5); WHITE BLOOD COUNT 11.1 X10'3 (4.5-11.0)
[2021-12-11 07:45] LABS: ALANINE AMINOTRANSFERASE 12 U/L (12-78); ALBUMIN 2.5 G/DL (3.4-5.0); ALBUMIN/GLOBULIN RATIO 0.8 (1.1-1.5); ALKALINE PHOSPHATASE 74 IU/L (46-116); ANION GAP 11 (8-16); ASPARTATE AMINO TRANSFERASE 11 U/L (10-37); BILIRUBIN,TOTAL 0.4 MG/DL (0.1-1.0); BLOOD UREA NITROGEN 8 MG/DL (7-18); BUN/CREATININE RATIO 8.2 (6.6-38.0); CALCIUM 7.6 MG/DL (8.5-10.1); CHLORIDE 108 MMOL/L (99-107); CREATININE 0.97 MG/DL (0.40-0.90); GLUCOSE 109 MG/DL (70-104); SODIUM 142 MMOL/L (135-145); TOTAL CARBON DIOXIDE 23.5 MMOL/L (24-32); TOTAL PROTEIN 5.5 G/DL (6.4-8.2); eGFR 58 ML/MIN
[2021-12-11] MEDS: venlafaxine XR 75mg capsule (Q24H) PO SCH (07:48)
[2021-12-11 07:49] LABS: MAGNESIUM 0.9 MG/DL (1.5-2.4)
[2021-12-11] MEDS: oxybutynin 5mg tablet PO SCH ×2 (07:49→20:00)
[2021-12-11] MEDS: loratadine 10mg tablet PO SCH (07:49)
[2021-12-11] MEDS: docusate sod 100mg capsule PO SCH ×2 (07:49→20:00)
[2021-12-11] MEDS ORDERED: magnesium 2GM in 50ml NS 50 ML IV ONE (07:50)
[2021-12-11] MEDS: atorvastatin 20mg tablet PO SCH (07:52)
[2021-12-11] MEDS: ARIPIPRAZOLE 10 MG TABLET PO SCH (07:54)
[2021-12-11] MEDS: POTASSIUM BICARB 20meq eff tab 20 MEQ TABLET.EFF PO PRN ×2 (07:58→09:58)
[2021-12-11] MEDS: K and/or MAG REPLACEMENT MC SCH ×2 (08:00→20:00)
[2021-12-11] MEDS: pantoprazole 40mg Tablet.DR PO SCH (08:02)
[2021-12-11] MEDS: nicotine 14mg patch - 24hr TD SCH (08:03)
--- NOTE | 2021-12-11 08:29 | NUR ---
Initial: Pt admitted w/ symptomatic mesenteric ischemia, is scheduled to undergo aorto-superior mesenteric bypass per EMR. EGD also showed mild erosive gastritis. Pt has been on Clears/NPO since admit (4days) w/ mostly 0% intake. Recommend advancing diet as tolerated to Regular s/p procedure once medically appropriate. Pt may be at high risk for developing malnutrition if continues to be NPO/Clears for prolonged period after procedure. LBM 5/16 receiving routine colace. Pt also receiving D5 1/2NS at 100ml/hr providing 408kcals/day. Limited nutrition interventions at this time, will continue to monitor. Recs: 1. Advance to Regular diet as tolerated once medically feasible 2. Monitor for ONS upon diet advancement 3. Bowel care per MD 4. Weekly wts Addendum: 12/11/21 at [address] Amended: Links added.
--- NOTE | 2021-12-11 08:41 | NUR ---
HOSPITALIST AWARE OF PT LOW ELECTROLYTES, REPLACING ELECTROLYTES PER PROTOCOL
[2021-12-11] MEDS: ipratropium/albuterol 3ml nebule NEB SCH ×5 (08:49→23:16)
[2021-12-11] MEDS: magnesium Cl slow-release 64mg tablet PO PRN (09:57)
[2021-12-11] MEDS: oxyCODONE/APAP 10/325mg tablet PO PRN (10:43)
[2021-12-11] MEDS: potassium CL 20mEq in D5-1/2NS 1,000 ML IV SCH ×2 (10:43→23:16)
[2021-12-11 11:39] LABS: MAGNESIUM 1.8 MG/DL (1.5-2.4); POTASSIUM 4.6 MMOL/L (3.5-5.1)
[2021-12-11] MEDS ORDERED: LIDOcaine 1% (10mg/ml) 2ml vial ONE (13:14)
[2021-12-11] MEDS ORDERED: heparin 10,000 units/1 ML INJ ONE (13:14)
--- NOTE | 2021-12-11 13:30 | NUR ---
gave report to arun patel in recovery
[2021-12-11] MEDS ORDERED: fentaNYL /PF 50mcg/ml 5ml ampule ONE (14:01)
[2021-12-11] MEDS ORDERED: PHENYLephrine 10mg/ml 5ml injection IV ONE (14:10)
[2021-12-11] MEDS ORDERED: dexamethasone sod phosphate 10mg/ml inj ONE (14:10)
[2021-12-11] MEDS ORDERED: ceFAZolin 2gm in dextrose, iso 2,000 MG/50 ML BAG IV ONE (14:10)
[2021-12-11] MEDS ORDERED: sevoflurane 250ml liquid IH ONE (14:10)
[2021-12-11] MEDS ORDERED: propofol 10mg/ml 20ml vial IV ONE (14:10)
[2021-12-11] MEDS ORDERED: rocuronium 10mg/ml inj IV ONE (14:10)
[2021-12-11] MEDS ORDERED: ondansetron/PF 4mg/2ml inj ONE (14:10)
[2021-12-11] MEDS ORDERED: BUPIVACAINE liposomal/PF 13.3 MG/ML vial IM ONE (14:13)
[2021-12-11] MEDS ORDERED: BUPIVAcaine/PF 7.5mg/ml (0.75%) 10ml vial ONE (14:13)
[2021-12-11] MEDS ORDERED: nitroGLYCERIN-Tridil 50MG/D5W 250 ML IV ONE (15:12)
--- NOTE | 2021-12-11 16:43 | NUR ---
Pt is in sugery no TX given
[2021-12-11] MEDS ORDERED: FENTANYL CITRATE/D5W/PF 100 ML IV PRN (19:15)
[2021-12-11] MEDS ORDERED: midazolam 100mg in NS 100ml 100 ML IV PRN (19:15)
[2021-12-11] MEDS ORDERED: midazolam 1 mg/ML 2ml injection IV ONE (19:15)
[2021-12-11] MEDS ORDERED: fentaNYL/PF 50MCG/1 ML 2ML syringe IV PRN (19:15)
[2021-12-11] MEDS ORDERED: protamine sulfate 10mg/ml inj. ONE (19:34)
--- NOTE | 2021-12-11 20:18 | NUR ---
Received from OR via JUSTIN , accompanied by Anesthesiologist CLARIBEL and report given by Anesthesiolgist. LARGE CLEAN ABDOMINAL DRESSING CDI AT THIS TIME. NO DRAINAGE EVIDENT, NO SHADOWING. PATIENT WITH MARADIAGA CATHETER CLEAR YELLOW URINE. PATIENT WITH 3 LUMEN CENTRAL LINE TO RIGHT NECK ART LINE IN RIGHT UE WELL A 20G PIV IN RIGHT UE. NGT IN PLACE AND PATIENT INTUBATED AND VENTILATED. VSS AT THIS TIME. Addendum: 12/11/21 at 2056 by Girish Zaldivar RN, RN Amended: Links added.
[2021-12-11] MEDS: FENTANYL-0.9 % NACL/PF 100 ML IV PRN (20:30)
[2021-12-11] MEDS ORDERED: niCARDipine-NS 40mg/200ml IVPB 200 ML IV ONE (20:42)
[2021-12-11] MEDS ORDERED: diltiazem-NS 100mg/100ml 100 ML IV SCH (20:45)
[2021-12-11 20:47] LABS: ABG BASE EXCESS -8.9 mmol/L (-2.0-2.0); ABG HCO3 17.7 mmol/L (22.0-26.0); ABG OXYGEN SATURATION 99.2 % (94-97); ABG PCO2 (T) 40.8 mmHg (32.0-45.0); ABG PO2 (T) 485.5 mmHg (75.0-100.0); FCOHb 0.3 % (0.0-3.9); FMetHb 0.2 % (0.0-1.5); FO2Hb 98.7 % (94-97); PEEP 5 cm H2O; RESPIRATORY RATE 12 b/min; TIDAL VOLUME 450 mL; TOTAL HEMOGLOBIN 10.1 G/dl (12.0-16.0)
[2021-12-11] MEDS ORDERED: sodium bicarbonate (8.4%) inj. 150 MEQ in sodium chloride 0.45% 850 ML IV SCH (20:55)
[2021-12-11] MEDS: Melatonin 3mg tablet PO SCH (21:00)
[2021-12-11 21:03] LABS: BASOPHILS % (AUTO) 0.1 % (0-1); EOSINOPHILS % (AUTO) 0.1 % (0-6); HEMATOCRIT 29.5 % (35.0-45.0); HEMOGLOBIN 9.5 g/dl (12.0-16.0); LYMPHOCYTES # (AUTO) 0.7 X10'3 (1.1-4.8); LYMPHOCYTES % (AUTO) 3.8 % (21-51); MEAN CORPUSCULAR HEMOGLOBIN 25.7 PG (27.0-31.0); MEAN CORPUSCULAR HGB CONC 32.1 g/dL (33.0-36.5); MEAN CORPUSCULAR VOLUME 80.1 FL (78-98); MEAN PLATELET VOLUME 10.3 FL (7.4-10.4); MONOCYTES % (AUTO) 5.3 % (2-12); NEUTROPHILS # (AUTO) 17.1 X10'3 (1.8-7.7); NEUTROPHILS % (AUTO) 90.7 % (42-75); PLATELET COUNT 155 X10'3 (140-440); RED BLOOD COUNT 3.69 X10'6 (4.20-5.60); RED CELL DISTRIBUTION WIDTH 21.4 % (11.5-14.5); WHITE BLOOD COUNT 18.9 X10'3 (4.5-11.0)
--- NOTE | 2021-12-11 21:08 | NUR ---
PATIENT HAS MET ALL CRITERIA IN ICU TO TRANSFER CARE TO THE ICU FLOOR. VSS. DRESSINGS INTACT.NO SHADOWING, BLEEDING, SEROUSANGUENOUS DRAINAGE IN ROSIE DRAIN. BED LOW, CALL LIGHT PRESENT AND 4 RAILS UP. RN CREGG PRESENT TO ACCEPT CARE OF PATIENT AND REPORT HAS BEEN GIVEN. ALL QUESTIONS ANSWERED TO ACCEPTING RN. PLUMBING FOREMAN AND RN AWARE OF PATIENT NEEDS AT THIS TIME. VSS AND IN STABLE CONDITION. Addendum: 12/11/21 at 2114 by Girish Queen - CAITY RN Amended: Links added.
--- NOTE | 2021-12-11 21:15 | NUR ---
Patient in room CICU 2014. I have received report from Girish CAROLINA (recovery) and had the opportunity to ask questions and assume patient care.
[2021-12-11 21:16] LABS: APTT 29 SECONDS (22-32)
[2021-12-11 21:19] LABS: ALANINE AMINOTRANSFERASE 340 U/L (12-78); ALBUMIN 2.3 G/DL (3.4-5.0); ALBUMIN/GLOBULIN RATIO 1.2 (1.1-1.5); ALKALINE PHOSPHATASE 50 IU/L (46-116); ANION GAP 12 (8-16); BILIRUBIN,TOTAL 0.5 MG/DL (0.1-1.0); BLOOD UREA NITROGEN 9 MG/DL (7-18); BUN/CREATININE RATIO 8.5 (6.6-38.0); CALCIUM 6.7 MG/DL (8.5-10.1); CHLORIDE 113 MMOL/L (99-107); CREATININE 1.06 MG/DL (0.40-0.90); GLUCOSE 193 MG/DL (70-104); MAGNESIUM 1.5 MG/DL (1.5-2.4); SODIUM 144 MMOL/L (135-145); TOTAL CARBON DIOXIDE 18.7 MMOL/L (24-32); TOTAL PROTEIN 4.2 G/DL (6.4-8.2); eGFR 52 ML/MIN
[2021-12-11 21:21] LABS: ASPARTATE AMINO TRANSFERASE 440 U/L (10-37); POTASSIUM 4.8 MMOL/L (3.5-5.1)
[2021-12-11 21:37] LABS: PLATELET ESTIMATE NORMAL
[2021-12-11 21:38] LABS: ANISOCYTOSIS 3+; BURR CELLS 1+; ELLIPTOCYTES FEW
[2021-12-11 21:39] LABS: POLYCHROMASIA FEW; TEAR DROP CELLS FEW
[2021-12-11] MEDS: ceFOXitin 2GM-NS 100mL ADDvant 100 ML IV SCH (22:16)
[2021-12-11] MEDS: sodium bicarbonate (8.4%) inj. 150 MEQ in sodium chloride 0.45% 1,000 ML IV SCH (22:16)
[2021-12-11 23:24] LABS: ABG BASE EXCESS -8.5 mmol/L (-2.0-2.0); ABG OXYGEN SATURATION 98.8 % (94-97); ABG PCO2 (T) 40.6 mmHg (32.0-45.0); ABG PO2 (T) 224.8 mmHg (75.0-100.0); FCOHb 0.3 % (0.0-3.9); FMetHb 0.2 % (0.0-1.5); FO2Hb 98.3 % (94-97); PATIENT TEMPERATURE 36.7; PEEP 5 cm H2O; RESPIRATORY RATE 12 b/min; TIDAL VOLUME 450 mL; TOTAL HEMOGLOBIN 10.3 G/dl (12.0-16.0)
[2021-12-12] VITALS (38 sets, daily range): BP systolic 70–140; BP diastolic 40–58
--- NOTE | 2021-12-12 00:30 | NUR ---
Notified Doctor about low urine output (5ml/hr) since receiving patient. No new orders given.
[2021-12-12] MEDS: ceFOXitin 2GM-NS 100mL ADDvant 100 ML IV SCH ×4 (02:00→20:00)
[2021-12-12 02:50] LABS: BASOPHILS % (AUTO) 0.1 % (0-1); EOSINOPHILS % (AUTO) 0 % (0-6); HEMATOCRIT 28.2 % (35.0-45.0); HEMOGLOBIN 9.2 g/dl (12.0-16.0); LYMPHOCYTES # (AUTO) 0.5 X10'3 (1.1-4.8); LYMPHOCYTES % (AUTO) 2.8 % (21-51); MEAN CORPUSCULAR HGB CONC 32.5 g/dL (33.0-36.5); MEAN PLATELET VOLUME 10.5 FL (7.4-10.4); MONOCYTES # (AUTO) 0.9 X10'3 (0-0.9); MONOCYTES % (AUTO) 4.8 % (2-12); NEUTROPHILS # (AUTO) 17.3 X10'3 (1.8-7.7); NEUTROPHILS % (AUTO) 92.3 % (42-75); PLATELET COUNT 158 X10'3 (140-440); RED BLOOD COUNT 3.52 X10'6 (4.20-5.60); WHITE BLOOD COUNT 18.7 X10'3 (4.5-11.0)
[2021-12-12 03:06] LABS: ALANINE AMINOTRANSFERASE 326 U/L (12-78); ALBUMIN 2.2 G/DL (3.4-5.0); ALBUMIN/GLOBULIN RATIO 1.2 (1.1-1.5); ALKALINE PHOSPHATASE 50 IU/L (46-116); ANION GAP 11 (8-16); ASPARTATE AMINO TRANSFERASE 492 U/L (10-37); BILIRUBIN,TOTAL 0.4 MG/DL (0.1-1.0); BLOOD UREA NITROGEN 12 MG/DL (7-18); BUN/CREATININE RATIO 7.5 (6.6-38.0); CALCIUM 6.5 MG/DL (8.5-10.1); CHLORIDE 113 MMOL/L (99-107); GLUCOSE 231 MG/DL (70-104); MAGNESIUM 1.4 MG/DL (1.5-2.4); POTASSIUM 4.9 MMOL/L (3.5-5.1); SODIUM 143 MMOL/L (135-145); TOTAL CARBON DIOXIDE 19.3 MMOL/L (24-32); TOTAL PROTEIN 4.1 G/DL (6.4-8.2); eGFR 32 ML/MIN
[2021-12-12 03:17] LABS: ABG BASE EXCESS -8.2 mmol/L (-2.0-2.0); ABG HCO3 17.9 mmol/L (22.0-26.0); ABG OXYGEN SATURATION 98.1 % (94-97); ABG PCO2 (T) 38.5 mmHg (32.0-45.0); ABG PO2 (T) 165.3 mmHg (75.0-100.0); FCOHb 0.3 % (0.0-3.9); FO2Hb 97.8 % (94-97); PATIENT TEMPERATURE 36.8; PEEP 5 cm H2O; RESPIRATORY RATE 12 b/min; TIDAL VOLUME 450 mL; TOTAL HEMOGLOBIN 9.7 G/dl (12.0-16.0)
[2021-12-12 03:41] LABS: TOTAL CELLS COUNTED 100
[2021-12-12 03:42] LABS: ANISOCYTOSIS 3+; BURR CELLS 1+; ELLIPTOCYTES FEW; PLATELET ESTIMATE NORMAL; POLYCHROMASIA FEW
--- NOTE | 2021-12-12 06:30 | NUR ---
Patient in room CICU 2014. I have received report from Kira CAROLINA and had the opportunity to ask questions and assume patient care.
[2021-12-12] MEDS: ipratropium/albuterol 3ml nebule NEB SCH ×5 (07:16→22:53)
[2021-12-12] MEDS: pantoprazole 40mg Tablet.DR PO SCH (07:30)
[2021-12-12] MEDS: nicotine 14mg patch - 24hr TD SCH (08:00)
[2021-12-12] MEDS: ARIPIPRAZOLE 10 MG TABLET PO SCH (08:00)
[2021-12-12] MEDS: docusate sod 100mg capsule PO SCH ×2 (08:00→20:00)
[2021-12-12] MEDS: loratadine 10mg tablet PO SCH (08:00)
[2021-12-12] MEDS: venlafaxine XR 75mg capsule (Q24H) PO SCH (08:00)
[2021-12-12] MEDS: oxybutynin 5mg tablet PO SCH ×2 (08:00→22:07)
[2021-12-12] MEDS: K and/or MAG REPLACEMENT MC SCH ×2 (08:00→20:00)
[2021-12-12] MEDS ORDERED: NORepinephrine 8mg/ 250ml NS 250 ML IV ONE (09:07)
[2021-12-12] MEDS ORDERED: albumin (Human) 5% 250ml 250 ML IV ONE ×2 (09:30→09:39)
[2021-12-12] MEDS: NORepinephrine 8mg/ 250ml NS 250 ML IV SCH (09:34)
[2021-12-12] MEDS ORDERED: IOHEXOL 300 MG/ML 30ML INFUS..BTL IV ONE (10:19)
[2021-12-12] MEDS: FENTANYL-0.9 % NACL/PF 100 ML IV PRN (10:45)
--- NOTE | 2021-12-12 12:06 | NUR ---
Shift note BP labile on arrival. Art line accuracy is questionable. CN aware and recommended surgeon be called. Message left. CC MD to see. Agreed BP was to low and levo ordered and initiated with good results. Able to increase pain meds. Pt in significant pain when suctioned; guarding, grimacing. Surgeon returned call about 0900. Orders received. [address] for abd/pelvis with contrast. Tolerated well and positioned to comfort when back to bed. Plan to return to OR later today.
--- NOTE | 2021-12-12 12:19 | NUR ---
F/u 12/11: Pt intubated s/p OR for R ilio-SMA bypass currently w/ open abdomen per EMR. Pending return to OR today per RN. Pt NPO w/ OG in place to suction and MAP 67 this AM during rounds. LBM 12/08 though noted abdomen pain, nausea, and diarrhea fluctuating GI symptoms throughout LOS per EMR. IF pt to remain NPO post-op may benefit from TPN to meet nutrition needs given now day 5 NPO vs clear liquids this admit w/ DX mesenteric ischemia per EMR. Pt currently receiving KCL/D5W/half NS at 70ml/hr providing 286 kcals/day per EMR. Will continue to monitor for further nutrition intervention needs this admit. Recs: 1. IF nutrition support post-op; consider PN given day 5 NPO vs clear liquids w/ DX mesenteric ischemia per EMR 2. IF adequate GI perfusion post-op; consider trickle EN per physician discretion 3. once PO diet; advance as medically indicated to regular 4. bowel care per MD post-op 5. weekly wts Addendum: 12/12/21 at [address] Amended: Links added. Addendum: 12/12/21 at [address] CORRECTION* F/u 5
[2021-12-12] MEDS ORDERED: albumin (human) 25% 100 ML IV solution IV ONE (14:45)
[2021-12-12] MEDS: potassium CL 20mEq in D5-1/2NS 1,000 ML IV SCH ×2 (16:40→17:48)
[2021-12-12] MEDS: mineral oil/petrolatum ophthal oint EACHEYE SCH (20:00)
[2021-12-12 20:01] LABS: ABG HCO3 19.3 mmol/L (22.0-26.0); ABG OXYGEN SATURATION 97.6 % (94-97); ABG PCO2 (T) 33.2 mmHg (32.0-45.0); ABG PO2 (T) 120.1 mmHg (75.0-100.0); FCOHb 0.5 % (0.0-3.9); FMetHb 0.3 % (0.0-1.5); FO2Hb 96.8 % (94-97); PATIENT TEMPERATURE 37.9; PEEP 5 cm H2O; RESPIRATORY RATE 16 b/min; TIDAL VOLUME 450 mL; TOTAL HEMOGLOBIN 6.8 G/dl (12.0-16.0)
[2021-12-12] MEDS: Melatonin 3mg tablet PO SCH (21:00)
[2021-12-12 21:14] LABS: BASOPHILS % (AUTO) 0.2 % (0-1); EOSINOPHILS % (AUTO) 0.1 % (0-6); MEAN CORPUSCULAR HEMOGLOBIN 26.1 PG (27.0-31.0); MEAN CORPUSCULAR HGB CONC 33.1 g/dL (33.0-36.5); MEAN CORPUSCULAR VOLUME 78.9 FL (78-98); MEAN PLATELET VOLUME 10.4 FL (7.4-10.4); MONOCYTES # (AUTO) 0.8 X10'3 (0-0.9); MONOCYTES % (AUTO) 5.6 % (2-12); NEUTROPHILS # (AUTO) 11.8 X10'3 (1.8-7.7); NEUTROPHILS % (AUTO) 87.1 % (42-75); PLATELET COUNT 117 X10'3 (140-440); RED BLOOD COUNT 2.43 X10'6 (4.20-5.60); RED CELL DISTRIBUTION WIDTH 21.8 % (11.5-14.5); WHITE BLOOD COUNT 13.6 X10'3 (4.5-11.0)
[2021-12-12 21:24] LABS: HEMATOCRIT 19.2 % (35.0-45.0); HEMOGLOBIN 6.4 g/dl (12.0-16.0)
[2021-12-12 21:48] LABS: APTT 51 SECONDS (22-32)
[2021-12-12 22:42] LABS: ANISOCYTOSIS 3+; ELLIPTOCYTES 1+; MICROCYTOSIS 1+; PLATELET ESTIMATE DECREASED
[2021-12-12 22:43] LABS: LARGE PLATELETS FEW
[2021-12-12] MEDS: sodium bicarbonate (8.4%) inj. 150 MEQ in sodium chloride 0.45% 1,000 ML IV SCH (23:37)
[2021-12-13] VITALS (35 sets, daily range): BP systolic 84–136; BP diastolic 35–50
[2021-12-13] MEDS ORDERED: diltiazem-D5W 125mg/125ml 125 ML IV SCH (01:10)
[2021-12-13] MEDS: mineral oil/petrolatum ophthal oint EACHEYE SCH ×4 (02:00→20:00)
[2021-12-13] MEDS: ceFOXitin 2GM-NS 100mL ADDvant 100 ML IV SCH ×4 (02:00→21:08)
[2021-12-13 03:05] LABS: BASOPHILS % (AUTO) 0.1 % (0-1); EOSINOPHILS % (AUTO) 0 % (0-6); HEMATOCRIT 22.9 % (35.0-45.0); HEMOGLOBIN 7.6 g/dl (12.0-16.0); LYMPHOCYTES # (AUTO) 0.7 X10'3 (1.1-4.8); LYMPHOCYTES % (AUTO) 5.7 % (21-51); MEAN CORPUSCULAR HEMOGLOBIN 26.2 PG (27.0-31.0); MEAN CORPUSCULAR HGB CONC 33.1 g/dL (33.0-36.5); MEAN CORPUSCULAR VOLUME 78.9 FL (78-98); MEAN PLATELET VOLUME 10.6 FL (7.4-10.4); MONOCYTES # (AUTO) 0.8 X10'3 (0-0.9); MONOCYTES % (AUTO) 6.2 % (2-12); NEUTROPHILS # (AUTO) 11.6 X10'3 (1.8-7.7); PLATELET COUNT 102 X10'3 (140-440); RED CELL DISTRIBUTION WIDTH 19.9 % (11.5-14.5); WHITE BLOOD COUNT 13.1 X10'3 (4.5-11.0)
[2021-12-13 03:13] LABS: ALBUMIN 3.3 G/DL (3.4-5.0); ANION GAP 11 (8-16); BLOOD UREA NITROGEN 16 MG/DL (7-18); BUN/CREATININE RATIO 10.5 (6.6-38.0); CALCIUM 7.4 MG/DL (8.5-10.1); CHLORIDE 111 MMOL/L (99-107); CREATININE 1.53 MG/DL (0.40-0.90); GLUCOSE 97 MG/DL (70-104); MAGNESIUM 1.8 MG/DL (1.5-2.4); POTASSIUM 3.9 MMOL/L (3.5-5.1); SODIUM 145 MMOL/L (135-145); TOTAL CARBON DIOXIDE 23.3 MMOL/L (24-32); eGFR 34 ML/MIN
[2021-12-13 03:41] LABS: ABG BASE EXCESS -1.2 mmol/L (-2.0-2.0); ABG HCO3 22.9 mmol/L (22.0-26.0); ABG PCO2 (T) 36.6 mmHg (32.0-45.0); ABG PO2 (T) 86.8 mmHg (75.0-100.0); FCOHb 0.1 % (0.0-3.9); FMetHb 0.3 % (0.0-1.5); FO2Hb 95.6 % (94-97); PEEP 5 cm H2O; RESPIRATORY RATE 16 b/min; TIDAL VOLUME 450 mL
[2021-12-13] MEDS: potassium CL 20mEq in D5-1/2NS 1,000 ML IV SCH ×4 (05:14→21:04)
[2021-12-13] MEDS: FENTANYL-0.9 % NACL/PF 100 ML IV PRN ×2 (05:59→11:29)
[2021-12-13] MEDS ORDERED: mag hydrox/Alum hydrox/simeth 30ml oral suspension OGT PRN (06:55)
[2021-12-13] MEDS ORDERED: magnesium hydroxide 30ml (MOM) UD suspension OGT PRN (06:55)
[2021-12-13] MEDS ORDERED: oxyCODONE/APAP 10/325mg tablet OGT PRN (06:58)
[2021-12-13] MEDS ORDERED: oxyCODONE/APAP 5-325mg tablet OGT PRN (06:58)
[2021-12-13] MEDS: ipratropium/albuterol 3ml nebule NEB SCH ×5 (07:36→23:21)
[2021-12-13] MEDS: venlafaxine 37.5mg tablet OGT SCH ×2 (07:41→21:02)
[2021-12-13] MEDS: lansoprazole 15mg solutab OGT SCH (07:42)
[2021-12-13] MEDS: docusate sodium 100mg/10ml UD cup OGT SCH ×2 (07:42→21:02)
[2021-12-13] MEDS: oxybutynin 5mg tablet OGT SCH ×2 (07:42→21:03)
[2021-12-13] MEDS: loratadine 10mg tablet OGT SCH (07:42)
[2021-12-13] MEDS: ARIPIPRAZOLE 10 MG TABLET PO SCH (07:43)
[2021-12-13] MEDS: nicotine 14mg patch - 24hr TD SCH (07:47)
[2021-12-13] MEDS: K and/or MAG REPLACEMENT MC SCH ×2 (08:00→20:00)
[2021-12-13] MEDS: midazolam 100mg in NS 100ml 100 ML IV PRN (08:54)
--- NOTE | 2021-12-13 08:55 | NUR ---
Dr. Koo at the bedside rounding; okay to keep SBP less than 130-140s. Patient's blood pressure continues to be labile. Okay to give blood if needed. Plan to take patient back to surgery Wednesday morning at 0800.
[2021-12-13 09:56] LABS: HEMATOCRIT 22.6 % (35.0-45.0); HEMOGLOBIN 7.5 g/dl (12.0-16.0); MEAN CORPUSCULAR HEMOGLOBIN 26.3 PG (27.0-31.0); MEAN CORPUSCULAR HGB CONC 33.2 g/dL (33.0-36.5); MEAN CORPUSCULAR VOLUME 79.3 FL (78-98); MEAN PLATELET VOLUME 11.1 FL (7.4-10.4); PLATELET COUNT 98 X10'3 (140-440); RED BLOOD COUNT 2.85 X10'6 (4.20-5.60); RED CELL DISTRIBUTION WIDTH 20.5 % (11.5-14.5); WHITE BLOOD COUNT 13.8 X10'3 (4.5-11.0)
[2021-12-13] MEDS: NORepinephrine 8mg/ 250ml NS 250 ML IV SCH (10:35)
[2021-12-13] MEDS ORDERED: albuterol 2.5 MG/3 ML nebule NEB PRN (13:20)
--- NOTE | 2021-12-13 13:33 | NUR ---
Urine output 15-25ml/hour; Dr. Vasquez notified. Orders for chemistry panel and administer albumin if Albumin <2.2
[2021-12-13 14:33] LABS: ALANINE AMINOTRANSFERASE 313 U/L (12-78); ALBUMIN 2.7 G/DL (3.4-5.0); ALBUMIN/GLOBULIN RATIO 1.5 (1.1-1.5); ALKALINE PHOSPHATASE 48 IU/L (46-116); ANION GAP 11 (8-16); ASPARTATE AMINO TRANSFERASE 424 U/L (10-37); BILIRUBIN,TOTAL 0.9 MG/DL (0.1-1.0); BLOOD UREA NITROGEN 20 MG/DL (7-18); BUN/CREATININE RATIO 14.7 (6.6-38.0); CALCIUM 7.9 MG/DL (8.5-10.1); CHLORIDE 111 MMOL/L (99-107); CREATININE 1.36 MG/DL (0.40-0.90); GLUCOSE 96 MG/DL (70-104); POTASSIUM 3.7 MMOL/L (3.5-5.1); SODIUM 145 MMOL/L (135-145); TOTAL CARBON DIOXIDE 23.3 MMOL/L (24-32); TOTAL PROTEIN 4.5 G/DL (6.4-8.2); eGFR 39 ML/MIN
[2021-12-13] MEDS ORDERED: fentaNYL/NS/PF 2,500 mcg/250mL 250 ML IV SCH (16:55)
--- NOTE | 2021-12-13 18:25 | NUR ---
Problems reprioritized. Patient report given, questions answered & plan of care reviewed with Mac RN.
[2021-12-13] MEDS: budesonide 0.5mg/2ml UD nebule IH SCH (20:10)
[2021-12-13] MEDS: Melatonin 3mg tablet OGT SCH (21:03)
[2021-12-13] MEDS: sodium bicarbonate (8.4%) inj. 150 MEQ in sodium chloride 0.45% 1,000 ML IV SCH (21:04)
[2021-12-14] VITALS (34 sets, daily range): BP systolic 75–133; BP diastolic 33–77
[2021-12-14] MEDS: mineral oil/petrolatum ophthal oint EACHEYE SCH ×4 (02:00→20:00)
[2021-12-14 03:12] LABS: BASOPHILS % (AUTO) 0.2 % (0-1); EOSINOPHILS % (AUTO) 0.2 % (0-6); HEMATOCRIT 24.6 % (35.0-45.0); LYMPHOCYTES # (AUTO) 1.1 X10'3 (1.1-4.8); LYMPHOCYTES % (AUTO) 6.5 % (21-51); MEAN CORPUSCULAR HGB CONC 32.6 g/dL (33.0-36.5); MEAN CORPUSCULAR VOLUME 79.6 FL (78-98); MEAN PLATELET VOLUME 10.7 FL (7.4-10.4); MONOCYTES # (AUTO) 0.9 X10'3 (0-0.9); MONOCYTES % (AUTO) 5.2 % (2-12); NEUTROPHILS # (AUTO) 15.5 X10'3 (1.8-7.7); NEUTROPHILS % (AUTO) 87.9 % (42-75); PLATELET COUNT 102 X10'3 (140-440); RED BLOOD COUNT 3.08 X10'6 (4.20-5.60); WHITE BLOOD COUNT 17.6 X10'3 (4.5-11.0)
[2021-12-14 03:19] LABS: ALANINE AMINOTRANSFERASE 271 U/L (12-78); ALBUMIN 2.3 G/DL (3.4-5.0); ALBUMIN/GLOBULIN RATIO 1.2 (1.1-1.5); ALKALINE PHOSPHATASE 56 IU/L (46-116); ANION GAP 8 (8-16); ASPARTATE AMINO TRANSFERASE 223 U/L (10-37); BLOOD UREA NITROGEN 22 MG/DL (7-18); BUN/CREATININE RATIO 15.9 (6.6-38.0); CALCIUM 7.8 MG/DL (8.5-10.1); CHLORIDE 111 MMOL/L (99-107); CREATININE 1.38 MG/DL (0.40-0.90); GLUCOSE 80 MG/DL (70-104); MAGNESIUM 1.6 MG/DL (1.5-2.4); POTASSIUM 3.7 MMOL/L (3.5-5.1); SODIUM 143 MMOL/L (135-145); TOTAL CARBON DIOXIDE 24.5 MMOL/L (24-32); TOTAL PROTEIN 4.3 G/DL (6.4-8.2); eGFR 38 ML/MIN
[2021-12-14 03:54] LABS: ABG BASE EXCESS -2.1 mmol/L (-2.0-2.0); ABG OXYGEN SATURATION 95.5 % (94-97); ABG PCO2 (T) 24.6 mmHg (32.0-45.0); ABG PO2 (T) 77.5 mmHg (75.0-100.0); FCOHb 0.3 % (0.0-3.9); FMetHb 0.4 % (0.0-1.5); FO2Hb 94.8 % (94-97); RESPIRATORY RATE 16 b/min; TIDAL VOLUME 450 mL; TOTAL HEMOGLOBIN 8.4 G/dl (12.0-16.0)
[2021-12-14 06:01] LABS: ANISOCYTOSIS 3+; MICROCYTOSIS 1+; PLATELET ESTIMATE DECREASED
[2021-12-14 06:07] LABS: ELLIPTOCYTES FEW
[2021-12-14 06:08] LABS: TEAR DROP CELLS FEW
[2021-12-14] MEDS ORDERED: FENTANYL-0.9 % NACL/PF 100 ML IV PRN (06:37)
[2021-12-14] MEDS: lansoprazole 15mg solutab OGT SCH (07:12)
[2021-12-14] MEDS: docusate sodium 100mg/10ml UD cup OGT SCH ×2 (07:12→20:00)
[2021-12-14] MEDS: nicotine 14mg patch - 24hr TD SCH (07:28)
[2021-12-14] MEDS: loratadine 10mg tablet OGT SCH (07:29)
[2021-12-14] MEDS: oxybutynin 5mg tablet OGT SCH ×2 (07:29→21:15)
[2021-12-14] MEDS: venlafaxine 37.5mg tablet OGT SCH ×2 (07:35→21:15)
[2021-12-14] MEDS: ARIPIPRAZOLE 10 MG TABLET PO SCH (07:36)
[2021-12-14] MEDS: ipratropium/albuterol 3ml nebule NEB SCH ×4 (07:45→23:15)
[2021-12-14] MEDS: budesonide 0.5mg/2ml UD nebule IH SCH ×2 (07:46→19:08)
--- NOTE | 2021-12-14 07:52 | NUR ---
F/u 12/14: Pt remains intubated and sedated, to go back to OR today per EMR. LBM 12/08 though noted abdomen pain, nausea, and diarrhea fluctuating GI symptoms throughout LOS per EMR. Given 7 days poor/no nutrition and mild muscle weakness, pt meets minimum criteria for malnutrition, MD notified. IF pt to remain NPO post-op may benefit from TPN to meet nutrition needs given now day 7 NPO vs clear liquids this admit w/ DX mesenteric ischemia per EMR. Pt currently receiving KCL/D5W/half NS at 70ml/hr providing 286 kcals/day per EMR. Will continue to monitor for further nutrition intervention needs this admit. Recs: 1. IF nutrition support post-op; consider PN given day 7 NPO vs clear liquids w/ DX mesenteric ischemia per EMR 2. IF adequate GI perfusion post-op; consider trickle EN per physician discretion 3. once PO diet; advance as medically indicated to regular 4. bowel care per MD post-op 5. weekly wts Addendum: 12/14/21 at [address] Amended: Links added.
[2021-12-14] MEDS: K and/or MAG REPLACEMENT MC SCH ×2 (08:00→20:00)
[2021-12-14] MEDS: ceFOXitin 2GM-NS 100mL ADDvant 100 ML IV SCH ×2 (08:06→21:14)
[2021-12-14] MEDS ORDERED: dextrose 50%-water 50ml dispensing syringe IV ONE ×2 (08:11→08:25)
[2021-12-14] MEDS ORDERED: sevoflurane 250ml liquid IH ONE (09:29)
[2021-12-14] MEDS ORDERED: sodium bicarbonate (8.4%) 1 mEq/ml syringe ONE (09:29)
[2021-12-14] MEDS ORDERED: NORepinephrine 8 MG in NS 250 ML BAG (32 mcg/ml) IV ONE (09:29)
[2021-12-14] MEDS ORDERED: rocuronium 10mg/ml inj IV ONE (10:21)
[2021-12-14] MEDS: potassium CL 20mEq in D5-1/2NS 1,000 ML IV SCH (11:34)
[2021-12-14] MEDS ORDERED: dextrose 5%-normal saline 1,000 ML IV SCH (12:15)
[2021-12-14] MEDS ORDERED: magnesium 2GM in 50ml NS 50 ML IV PRN (14:25)
[2021-12-14] MEDS ORDERED: potassium CL 10mEq/100ml bag 100 ML IV PRN (14:25)
[2021-12-14] MEDS ORDERED: POTASSIUM BICARB 20meq eff tab 20 MEQ TABLET.EFF PO PRN ×2 (14:25)
[2021-12-14] MEDS: midazolam 100mg in NS 100ml 100 ML IV PRN (15:27)
[2021-12-14] MEDS: fentaNYL/NS/PF 2,500 mcg/250mL 250 ML IV SCH (15:30)
[2021-12-14] MEDS ORDERED: albumin (Human) 5% 250ml 250 ML IV ONE (16:33)
[2021-12-14] MEDS: Melatonin 3mg tablet OGT SCH (21:15)
[2021-12-15] VITALS (35 sets, daily range): BP systolic 91–133; BP diastolic 43–65
[2021-12-15] MEDS ORDERED: DEXTROSE 10 % AND 0.45 % NACL 1,000 ML IV SCH (01:05)
[2021-12-15] MEDS: fentaNYL/NS/PF 2,500 mcg/250mL 250 ML IV SCH ×3 (02:26→19:34)
[2021-12-15] MEDS: mineral oil/petrolatum ophthal oint EACHEYE SCH ×4 (02:27→19:37)
[2021-12-15 02:49] LABS: BASOPHILS % (AUTO) 0.1 % (0-1); EOSINOPHILS # (AUTO) 0.1 X10'3 (0-0.9); EOSINOPHILS % (AUTO) 0.8 % (0-6); HEMATOCRIT 24.1 % (35.0-45.0); HEMOGLOBIN 7.8 g/dl (12.0-16.0); LYMPHOCYTES # (AUTO) 0.6 X10'3 (1.1-4.8); LYMPHOCYTES % (AUTO) 3.7 % (21-51); MEAN CORPUSCULAR HEMOGLOBIN 26.1 PG (27.0-31.0); MEAN CORPUSCULAR HGB CONC 32.3 g/dL (33.0-36.5); MEAN CORPUSCULAR VOLUME 80.8 FL (78-98); MEAN PLATELET VOLUME 10.3 FL (7.4-10.4); MONOCYTES # (AUTO) 0.9 X10'3 (0-0.9); MONOCYTES % (AUTO) 5.6 % (2-12); NEUTROPHILS # (AUTO) 15.2 X10'3 (1.8-7.7); NEUTROPHILS % (AUTO) 89.8 % (42-75); PLATELET COUNT 128 X10'3 (140-440); RED BLOOD COUNT 2.98 X10'6 (4.20-5.60); RED CELL DISTRIBUTION WIDTH 21.9 % (11.5-14.5); WHITE BLOOD COUNT 16.9 X10'3 (4.5-11.0)
[2021-12-15 03:11] LABS: ALANINE AMINOTRANSFERASE 147 U/L (12-78); ALBUMIN/GLOBULIN RATIO 0.9 (1.1-1.5); ALKALINE PHOSPHATASE 63 IU/L (46-116); ANION GAP 9 (8-16); ASPARTATE AMINO TRANSFERASE 57 U/L (10-37); BILIRUBIN,TOTAL 0.8 MG/DL (0.1-1.0); BLOOD UREA NITROGEN 21 MG/DL (7-18); BUN/CREATININE RATIO 14.8 (6.6-38.0); CALCIUM 7.6 MG/DL (8.5-10.1); CHLORIDE 112 MMOL/L (99-107); CREATININE 1.42 MG/DL (0.40-0.90); GLUCOSE 95 MG/DL (70-104); MAGNESIUM 1.6 MG/DL (1.5-2.4); POTASSIUM 3.8 MMOL/L (3.5-5.1); SODIUM 144 MMOL/L (135-145); TOTAL CARBON DIOXIDE 23.5 MMOL/L (24-32); TOTAL PROTEIN 4.2 G/DL (6.4-8.2); eGFR 37 ML/MIN
[2021-12-15 03:36] LABS: ABG HCO3 22.2 mmol/L (22.0-26.0); ABG OXYGEN SATURATION 94.8 % (94-97); ABG PO2 (T) 79.7 mmHg (75.0-100.0); ALLEN'S TEST POSITIVE; FCOHb 0.2 % (0.0-3.9); FMetHb 0.3 % (0.0-1.5); FO2Hb 94.3 % (94-97); PEEP 5 cm H2O; RESPIRATORY RATE 12 b/min; TIDAL VOLUME 450 mL; TOTAL HEMOGLOBIN 8.4 G/dl (12.0-16.0)
[2021-12-15 04:31] LABS: ANISOCYTOSIS 3+; MICROCYTOSIS 1+; PLATELET ESTIMATE DECREASED
[2021-12-15 04:32] LABS: ELLIPTOCYTES 1+
[2021-12-15] MEDS: ipratropium/albuterol 3ml nebule NEB SCH ×5 (06:58→23:20)
[2021-12-15] MEDS: K and/or MAG REPLACEMENT MC SCH ×2 (07:06→07:07)
[2021-12-15] MEDS: nicotine 14mg patch - 24hr TD SCH (08:18)
[2021-12-15] MEDS: docusate sodium 100mg/10ml UD cup OGT SCH (08:21)
[2021-12-15] MEDS: venlafaxine 37.5mg tablet OGT SCH (08:21)
[2021-12-15] MEDS: lansoprazole 15mg solutab OGT SCH (08:21)
[2021-12-15] MEDS: loratadine 10mg tablet OGT SCH (08:21)
[2021-12-15] MEDS: ARIPIPRAZOLE 10 MG TABLET PO SCH (08:21)
[2021-12-15] MEDS: oxybutynin 5mg tablet OGT SCH (08:21)
[2021-12-15] MEDS: ceFOXitin 2GM-NS 100mL ADDvant 100 ML IV SCH ×2 (08:21→19:36)
[2021-12-15] MEDS: budesonide 0.5mg/2ml UD nebule IH SCH ×2 (11:40→19:32)
[2021-12-15 11:57] LABS: ISTAT CREATININE 0.9 mg/dL (0.6-1.1); ISTAT IONIZED CALCIUM 1.03 mmol/L (1.03-1.32); ISTAT K 4.1 mmol/L (3.5-5.1); POC BUN/CREATININE RATIO 6.7 (6.6-38.0)
[2021-12-15 11:59] LABS: ISTAT NA 138 mmol/L (135-145)
[2021-12-15 11:59] LABS: ISTAT HGB 5.1 g/dl (12.0-16.0)
[2021-12-15 12:00] LABS: ISTAT ANION GAP 10 (8-12); ISTAT BUN 6 mg/dL (7-18); ISTAT CL 109 mmol/L (99-107); ISTAT CREATININE 0.9 mg/dL (0.6-1.1); ISTAT GLUCOSE 199 mg/dL (70-105); ISTAT IONIZED CALCIUM 1.06 mmol/L (1.03-1.32); ISTAT K 4.1 mmol/L (3.5-5.1); ISTAT TOTAL CO2 19 mmol/L (24-32); ISTAT eGFR 63 ML/MIN; POC BUN/CREATININE RATIO 6.7 (6.6-38.0)
[2021-12-15 12:01] LABS: ISTAT Hct < 15 %PCV (35-48)
[2021-12-15] MEDS: albumin (human) 25% 100ml IV 100 ML IV SCH ×2 (12:17→19:35)
[2021-12-15] MEDS: heparin, porcine 5000 units/ml vial SQ SCH ×2 (12:20→19:36)
[2021-12-15] MEDS: dextrose 5%-normal saline 1,000 ML IV SCH (12:48)
[2021-12-15] MEDS: furosemide 40mg/4ml inj IV SCH ×2 (13:35→21:03)
--- NOTE | 2021-12-15 14:59 | NUR ---
F/u 12/15: Pt remains intubated s/p return to OR yesterday R NG in place w/ MAP 76 per EMR. Trickle TF okay to start at this time per surgeon; recs below. Pt receiving D5/NS at 75ml/hr providing 306 kcals/day. Will monitor for EN tolerance and adjustment needs. Recs: 1. Trickle TF per MD using Vital AF at 15ml/hr to provide 360ml volume/day, 432 kcals, 292ml water, and 27g protein. 2. IF TF to advance; Vital AF at 55ml/hr goal 3. IF TF to advance; additional water flush 200ml Q4H 4. PALB Q /; daily wts 5. IF signs of EN intolerance; consider PN given 8 days NPO vs clear liquids w/ DX mesenteric ischemia per EMR 6. routine bowel care 7. upon extubation; advance as medically indicated to regular Addendum: 12/15/21 at [address] Amended: Links added.
[2021-12-15] MEDS ORDERED: mag hydrox/Alum hydrox/simeth 30ml oral suspension NG PRN (15:31)
[2021-12-15] MEDS ORDERED: magnesium hydroxide 30ml (MOM) UD suspension NG PRN (15:31)
[2021-12-15] MEDS ORDERED: POTASSIUM BICARB 20meq eff tab 20 MEQ TABLET.EFF NG PRN (15:32)
[2021-12-15 15:51] LABS: PREALBUMIN 6.8 MG/DL (19-36)
--- NOTE | 2021-12-15 18:15 | NUR ---
Patient in room CICU 2014. I have received report from CAITY Oh and had the opportunity to ask questions and assume patient care. Patient is intubated/sedated, I will continue to monitor.
[2021-12-15] MEDS: venlafaxine 37.5mg tablet NG SCH (19:35)
[2021-12-15] MEDS: oxybutynin 5mg tablet NG SCH (19:35)
[2021-12-15] MEDS: docusate sodium 100mg/10ml UD cup NG SCH (19:36)
[2021-12-15] MEDS: Melatonin 3mg tablet NG SCH (21:00)
[2021-12-16] VITALS (36 sets, daily range): BP systolic 79–123; BP diastolic 39–66
[2021-12-16] MEDS: midazolam 100mg in NS 100ml 100 ML IV PRN (00:29)
[2021-12-16] MEDS: mineral oil/petrolatum ophthal oint EACHEYE SCH ×4 (02:17→19:48)
[2021-12-16] MEDS: dextrose 5%-normal saline 1,000 ML IV SCH ×2 (02:17→15:09)
[2021-12-16] MEDS: albumin (human) 25% 100ml IV 100 ML IV SCH ×4 (02:20→19:48)
[2021-12-16 02:30] LABS: BASOPHILS % (AUTO) 0.1 % (0-1); EOSINOPHILS # (AUTO) 0.3 X10'3 (0-0.9); EOSINOPHILS % (AUTO) 2.4 % (0-6); HEMATOCRIT 22.2 % (35.0-45.0); HEMOGLOBIN 7.1 g/dl (12.0-16.0); LYMPHOCYTES # (AUTO) 0.8 X10'3 (1.1-4.8); LYMPHOCYTES % (AUTO) 5.8 % (21-51); MEAN CORPUSCULAR HEMOGLOBIN 26.4 PG (27.0-31.0); MEAN CORPUSCULAR HGB CONC 32.3 g/dL (33.0-36.5); MEAN CORPUSCULAR VOLUME 81.9 FL (78-98); MEAN PLATELET VOLUME 10.1 FL (7.4-10.4); MONOCYTES # (AUTO) 0.9 X10'3 (0-0.9); MONOCYTES % (AUTO) 7.1 % (2-12); NEUTROPHILS # (AUTO) 11.2 X10'3 (1.8-7.7); NEUTROPHILS % (AUTO) 84.6 % (42-75); PLATELET COUNT 147 X10'3 (140-440); RED BLOOD COUNT 2.71 X10'6 (4.20-5.60); RED CELL DISTRIBUTION WIDTH 21.7 % (11.5-14.5); WHITE BLOOD COUNT 13.2 X10'3 (4.5-11.0)
[2021-12-16 02:44] LABS: ALANINE AMINOTRANSFERASE 82 U/L (12-78); ALBUMIN 2.6 G/DL (3.4-5.0); ALBUMIN/GLOBULIN RATIO 1.1 (1.1-1.5); ALKALINE PHOSPHATASE 63 IU/L (46-116); ANION GAP 9 (8-16); ASPARTATE AMINO TRANSFERASE 20 U/L (10-37); BILIRUBIN,TOTAL 0.9 MG/DL (0.1-1.0); BLOOD UREA NITROGEN 21 MG/DL (7-18); BUN/CREATININE RATIO 13.1 (6.6-38.0); CALCIUM 8.2 MG/DL (8.5-10.1); CHLORIDE 111 MMOL/L (99-107); GLUCOSE 105 MG/DL (70-104); MAGNESIUM 1.3 MG/DL (1.5-2.4); POTASSIUM 3.5 MMOL/L (3.5-5.1); SODIUM 144 MMOL/L (135-145); TOTAL CARBON DIOXIDE 24.3 MMOL/L (24-32); TOTAL PROTEIN 4.9 G/DL (6.4-8.2); eGFR 32 ML/MIN
[2021-12-16 03:12] LABS: ANISOCYTOSIS 3+; HYPOCHROMASIA 1+; PLATELET ESTIMATE NORMAL; POLYCHROMASIA 1+
[2021-12-16 03:13] LABS: ELLIPTOCYTES FEW; SCHISTOCYTES FEW; TEAR DROP CELLS FEW
[2021-12-16] MEDS: furosemide 40mg/4ml inj IV SCH ×4 (03:18→19:50)
[2021-12-16 03:37] LABS: ABG BASE EXCESS -2.2 mmol/L (-2.0-2.0); ABG HCO3 23.2 mmol/L (22.0-26.0); ABG OXYGEN SATURATION 92.4 % (94-97); ABG PCO2 (T) 43.3 mmHg (32.0-45.0); ABG PO2 (T) 67.3 mmHg (75.0-100.0); ALLEN'S TEST POSITIVE; FCOHb 0.2 % (0.0-3.9); FMetHb 0.2 % (0.0-1.5); PATIENT TEMPERATURE 37.3; PEEP 5 cm H2O; RESPIRATORY RATE 12 b/min; TIDAL VOLUME 450 mL
--- NOTE | 2021-12-16 06:10 | NUR ---
Problems reprioritized. Patient report given, questions answered & plan of care reviewed with CAITY Beltran.
--- NOTE | 2021-12-16 06:15 | NUR ---
Problems reprioritized. Patient report given, questions answered & plan of care reviewed with CAITY Vergara.
[2021-12-16] MEDS: magnesium 4gm in 100ml NS 100 ML IV PRN (06:31)
[2021-12-16] MEDS: ipratropium/albuterol 3ml nebule NEB SCH ×5 (07:13→22:54)
[2021-12-16] MEDS: nicotine 14mg patch - 24hr TD SCH (07:40)
[2021-12-16] MEDS: docusate sodium 100mg/10ml UD cup NG SCH ×2 (07:40→19:50)
[2021-12-16] MEDS: ceFOXitin 2GM-NS 100mL ADDvant 100 ML IV SCH ×2 (07:41→20:37)
[2021-12-16] MEDS: heparin, porcine 5000 units/ml vial SQ SCH ×3 (07:41→19:49)
[2021-12-16] MEDS: loratadine 10mg tablet NG SCH (07:42)
[2021-12-16] MEDS: venlafaxine 37.5mg tablet NG SCH ×2 (07:42→19:50)
[2021-12-16] MEDS: ARIPIPRAZOLE 10 MG TABLET NG SCH (07:42)
[2021-12-16] MEDS: lansoprazole 15mg solutab NG SCH (07:42)
[2021-12-16] MEDS: oxybutynin 5mg tablet NG SCH ×2 (07:42→19:50)
[2021-12-16] MEDS: K and/or MAG REPLACEMENT MC SCH (08:00)
[2021-12-16] MEDS: budesonide 0.5mg/2ml UD nebule IH SCH ×2 (09:12→22:54)
[2021-12-16 10:57] LABS: PHOSPHORUS 4.1 MG/DL (2.3-4.5)
--- NOTE | 2021-12-16 12:47 | NUR ---
TPN Consult: Pt remains intubated tolerating trickle EN at 15ml/hr w/ EN to remain at trickle and TPN to start today per surgeon; recs below considering EN intake. Unable to meet minimum protein needs without overfeeding given current PN formulary. LBM 5/16 receiving routine colace though trickle EN most substantial nutrition intake this admit. Will monitor for PN tolerance and adjustment needs; higher chance of refeeding given malnutrition status. Recs: 1. Trickle TF per MD using Vital AF at 15ml/hr to provide 360ml volume/day, 432 kcals, 292ml water, and 27g protein. 2. Continuous TPN per MD via central access using 3:1 Kabiven E 3.3% AA/9.8% Dex/3.9% lipid at 57ml/hr goal; to provide 1368ml volume/day, 45g AA, 134g dex (1.45mg/kg/min), and 1166 total kcals. 3. TG/PALB Q /; daily wts 4. Wean D5 w/ PN initiation/advancement if physician agreeable 5. IF TF to advance; Vital AF at 55ml/hr goal 6. IF TF to advance; additional water flush per MD while on PN 7. routine bowel care 8. upon extubation; advance as medically indicated to regular Addendum: 12/16/21 at [address] Amended: Links added.
[2021-12-16] MEDS ORDERED: ZINC/COPPER/MANGANESE/SELENIUM 1 ML, chromic chloride inj. 10 MCG, MVI, adult No.4 with... IV SCH ×4 (18:00)
[2021-12-16] MEDS: fentaNYL/NS/PF 2,500 mcg/250mL 250 ML IV SCH (19:49)
[2021-12-16] MEDS: Melatonin 3mg tablet NG SCH (21:00)
[2021-12-17] VITALS (39 sets, daily range): BP systolic 85–144; BP diastolic 42–75
[2021-12-17] MEDS: mineral oil/petrolatum ophthal oint EACHEYE SCH ×4 (02:00→20:13)
[2021-12-17 02:35] LABS: BASOPHILS % (AUTO) 0.2 % (0-1); EOSINOPHILS # (AUTO) 0.3 X10'3 (0-0.9); EOSINOPHILS % (AUTO) 2.6 % (0-6); LYMPHOCYTES # (AUTO) 0.4 X10'3 (1.1-4.8); LYMPHOCYTES % (AUTO) 4.1 % (21-51); MEAN CORPUSCULAR HEMOGLOBIN 26.9 PG (27.0-31.0); MEAN CORPUSCULAR HGB CONC 32.8 g/dL (33.0-36.5); MEAN PLATELET VOLUME 10.3 FL (7.4-10.4); MONOCYTES # (AUTO) 0.6 X10'3 (0-0.9); MONOCYTES % (AUTO) 5.8 % (2-12); NEUTROPHILS # (AUTO) 9.4 X10'3 (1.8-7.7); NEUTROPHILS % (AUTO) 87.3 % (42-75); PLATELET COUNT 164 X10'3 (140-440); RED BLOOD COUNT 2.46 X10'6 (4.20-5.60); RED CELL DISTRIBUTION WIDTH 21.8 % (11.5-14.5); WHITE BLOOD COUNT 10.8 X10'3 (4.5-11.0)
[2021-12-17 02:46] LABS: HEMOGLOBIN 6.6 g/dl (12.0-16.0)
[2021-12-17 02:47] LABS: HEMATOCRIT 20.1 % (35.0-45.0)
[2021-12-17 02:51] LABS: ALANINE AMINOTRANSFERASE 46 U/L (12-78); ALBUMIN 3.1 G/DL (3.4-5.0); ALBUMIN/GLOBULIN RATIO 1.4 (1.1-1.5); ALKALINE PHOSPHATASE 54 IU/L (46-116); ANION GAP 10 (8-16); ASPARTATE AMINO TRANSFERASE 11 U/L (10-37); BILIRUBIN,TOTAL 0.8 MG/DL (0.1-1.0); BLOOD UREA NITROGEN 21 MG/DL (7-18); BUN/CREATININE RATIO 10.6 (6.6-38.0); CALCIUM 8.3 MG/DL (8.5-10.1); CHLORIDE 111 MMOL/L (99-107); CREATININE 1.98 MG/DL (0.40-0.90); GLUCOSE 143 MG/DL (70-104); MAGNESIUM 1.8 MG/DL (1.5-2.4); SODIUM 145 MMOL/L (135-145); TOTAL CARBON DIOXIDE 24.3 MMOL/L (24-32); TOTAL PROTEIN 5.3 G/DL (6.4-8.2); eGFR 25 ML/MIN
[2021-12-17 02:57] LABS: POTASSIUM 2.9 MMOL/L (3.5-5.1)
[2021-12-17] MEDS: dextrose 5%-normal saline 1,000 ML IV SCH (03:35)
[2021-12-17 03:40] LABS: ABG BASE EXCESS -1.8 mmol/L (-2.0-2.0); ABG HCO3 22.9 mmol/L (22.0-26.0); ABG OXYGEN SATURATION 92.4 % (94-97); ABG PCO2 (T) 38.2 mmHg (32.0-45.0); ABG PO2 (T) 67.2 mmHg (75.0-100.0); ALLEN'S TEST Yes; FCOHb 0.4 % (0.0-3.9); FMetHb 0.2 % (0.0-1.5); FO2Hb 91.8 % (94-97); PEEP 5 cm H2O; RESPIRATORY RATE 12 b/min; TIDAL VOLUME 450 mL; TOTAL HEMOGLOBIN 7.3 G/dl (12.0-16.0)
[2021-12-17] MEDS: potassium Cl 20mEq/100mL bag 100 ML IV PRN ×4 (03:58→14:42)
--- NOTE | 2021-12-17 05:51 | NUR ---
rounded wth Dr. Sophia marcelo MD putting in orders to transfuse PRBC, dc D5ns
[2021-12-17] MEDS: fentaNYL/NS/PF 2,500 mcg/250mL 250 ML IV SCH ×2 (06:27→20:21)
[2021-12-17] MEDS: ipratropium/albuterol 3ml nebule NEB SCH ×4 (07:06→19:27)
[2021-12-17] MEDS: ceFOXitin 2GM-NS 100mL ADDvant 100 ML IV SCH (07:53)
[2021-12-17] MEDS: loratadine 10mg tablet NG SCH (07:54)
[2021-12-17] MEDS: nicotine 14mg patch - 24hr TD SCH (07:54)
[2021-12-17] MEDS: venlafaxine 37.5mg tablet NG SCH ×2 (07:54→20:12)
[2021-12-17] MEDS: heparin, porcine 5000 units/ml vial SQ SCH ×2 (07:54→20:12)
[2021-12-17] MEDS: ARIPIPRAZOLE 10 MG TABLET NG SCH (07:54)
[2021-12-17] MEDS: docusate sodium 100mg/10ml UD cup NG SCH ×2 (07:54→20:12)
[2021-12-17] MEDS: oxybutynin 5mg tablet NG SCH ×2 (07:54→20:12)
[2021-12-17] MEDS: lansoprazole 15mg solutab NG SCH (07:54)
[2021-12-17] MEDS: K and/or MAG REPLACEMENT MC SCH (08:00)
[2021-12-17] MEDS: budesonide 0.5mg/2ml UD nebule IH SCH ×2 (08:43→19:27)
--- NOTE | 2021-12-17 09:27 | NUR ---
called Dr Giron to verify blood order, stated to re draw her h/h in one hour and if less than seven give one unit
[2021-12-17] MEDS ORDERED: NORepinephrine inj. 8 MG in dextrose 5%-water 242 ML IV SCH (09:35)
[2021-12-17] MEDS ORDERED: NORepinephrine 8mg/ 250ml NS 250 ML IV ONE (09:37)
[2021-12-17] MEDS: NORepinephrine 8mg/ 250ml NS 250 ML IV SCH (09:52)
[2021-12-17] MEDS ORDERED: vancomycin/NS 1 GM ADD-VANTAGE 250 ML IV SCH (10:00)
[2021-12-17] MEDS ORDERED: furosemide 40mg/4ml inj IV ONE ×2 (11:00→14:20)
[2021-12-17 11:03] LABS: HEMATOCRIT 24.8 % (35.0-45.0); MEAN CORPUSCULAR HEMOGLOBIN 26.7 PG (27.0-31.0); MEAN CORPUSCULAR HGB CONC 32.2 g/dL (33.0-36.5); MEAN CORPUSCULAR VOLUME 82.8 FL (78-98); MEAN PLATELET VOLUME 10.4 FL (7.4-10.4); PLATELET COUNT 192 X10'3 (140-440); RED CELL DISTRIBUTION WIDTH 20.9 % (11.5-14.5); WHITE BLOOD COUNT 14.5 X10'3 (4.5-11.0)
[2021-12-17 11:14] LABS: MAGNESIUM 1.8 MG/DL (1.5-2.4); PHOSPHORUS 3.8 MG/DL (2.3-4.5)
[2021-12-17] MEDS ORDERED: vancomycin inj 500 MG in normal saline 100ml IV soln 100 ML IV SCH (12:00)
[2021-12-17 13:55] LABS: ABG BASE EXCESS -4.6 mmol/L (-2.0-2.0); ABG HCO3 22.6 mmol/L (22.0-26.0); ABG PCO2 (T) 55.5 mmHg (32.0-45.0); ABG PO2 (T) 67.7 mmHg (75.0-100.0); ALLEN'S TEST POSITIVE; FCOHb 0.3 % (0.0-3.9); FMetHb 0.2 % (0.0-1.5); FO2Hb 88.6 % (94-97); PATIENT TEMPERATURE 38.1; PEEP 10 cm H2O; RESPIRATORY RATE 12 b/min; TIDAL VOLUME 450 mL; TOTAL HEMOGLOBIN 9.3 G/dl (12.0-16.0)
[2021-12-17] MEDS: ZINC/COPPER/MANGANESE/SELENIUM 1 ML, chromic chloride inj. 10 MCG, MVI, adult No.4 with... IV SCH ×4 (15:01)
[2021-12-17] MEDS: piperacillin/tazo 3.375gm/50ml 50 ML IV SCH (16:20)
--- NOTE | 2021-12-17 18:25 | NUR ---
Problems reprioritized. Patient report given, questions answered & plan of care reviewed with Pearl CAROLINA.
--- NOTE | 2021-12-17 18:30 | NUR ---
Patient in room CICU 2014. I have received report from CAITY Macedo and had the opportunity to ask questions and assume patient care.
[2021-12-17] MEDS: Melatonin 3mg tablet NG SCH (18:36)
[2021-12-18] VITALS (37 sets, daily range): BP systolic 90–138; BP diastolic 45–61
[2021-12-18] MEDS: piperacillin/tazo 3.375gm/50ml 50 ML IV SCH ×3 (00:20→16:30)
[2021-12-18] MEDS: FENTANYL-0.9 % NACL/PF 100 ML IV SCH ×5 (00:50→22:45)
[2021-12-18] MEDS: ZINC/COPPER/MANGANESE/SELENIUM 1 ML, chromic chloride inj. 10 MCG, MVI, adult No.4 with... IV SCH ×4 (02:33)
[2021-12-18] MEDS: mineral oil/petrolatum ophthal oint EACHEYE SCH ×4 (02:34→19:15)
[2021-12-18 03:36] LABS: BASOPHILS % (AUTO) 0.1 % (0-1); EOSINOPHILS # (AUTO) 0.2 X10'3 (0-0.9); EOSINOPHILS % (AUTO) 1.8 % (0-6); HEMATOCRIT 23.2 % (35.0-45.0); HEMOGLOBIN 7.7 g/dl (12.0-16.0); LYMPHOCYTES # (AUTO) 0.7 X10'3 (1.1-4.8); LYMPHOCYTES % (AUTO) 5.5 % (21-51); MEAN CORPUSCULAR HEMOGLOBIN 27.3 PG (27.0-31.0); MEAN CORPUSCULAR VOLUME 82.7 FL (78-98); MEAN PLATELET VOLUME 10.6 FL (7.4-10.4); MONOCYTES # (AUTO) 0.8 X10'3 (0-0.9); MONOCYTES % (AUTO) 6.8 % (2-12); NEUTROPHILS # (AUTO) 10.2 X10'3 (1.8-7.7); NEUTROPHILS % (AUTO) 85.8 % (42-75); PLATELET COUNT 208 X10'3 (140-440); RED BLOOD COUNT 2.81 X10'6 (4.20-5.60); WHITE BLOOD COUNT 11.9 X10'3 (4.5-11.0)
[2021-12-18 03:43] LABS: ALANINE AMINOTRANSFERASE 28 U/L (12-78); ALBUMIN 2.4 G/DL (3.4-5.0); ALBUMIN/GLOBULIN RATIO 0.9 (1.1-1.5); ALKALINE PHOSPHATASE 62 IU/L (46-116); ANION GAP 11 (8-16); ASPARTATE AMINO TRANSFERASE 9 U/L (10-37); BILIRUBIN,TOTAL 0.7 MG/DL (0.1-1.0); BLOOD UREA NITROGEN 30 MG/DL (7-18); BUN/CREATININE RATIO 12.9 (6.6-38.0); CALCIUM 8.9 MG/DL (8.5-10.1); CHLORIDE 107 MMOL/L (99-107); CREATININE 2.32 MG/DL (0.40-0.90); GLUCOSE 156 MG/DL (70-104); MAGNESIUM 1.9 MG/DL (1.5-2.4); POTASSIUM 3.5 MMOL/L (3.5-5.1); SODIUM 143 MMOL/L (135-145); TOTAL CARBON DIOXIDE 25.1 MMOL/L (24-32); TOTAL PROTEIN 5.1 G/DL (6.4-8.2); eGFR 21 ML/MIN
[2021-12-18 03:48] LABS: ABG BASE EXCESS -1.4 mmol/L (-2.0-2.0); ABG HCO3 22.3 mmol/L (22.0-26.0); ABG OXYGEN SATURATION 94.1 % (94-97); ABG PCO2 (T) 34.4 mmHg (32.0-45.0); ABG PO2 (T) 85.9 mmHg (75.0-100.0); FCOHb 0.3 % (0.0-3.9); FMetHb 0.1 % (0.0-1.5); FO2Hb 93.7 % (94-97); PATIENT TEMPERATURE 37.8; PEEP 10 cm H2O; RESPIRATORY RATE 18 b/min; TIDAL VOLUME 450 mL; TOTAL HEMOGLOBIN 8.3 G/dl (12.0-16.0)
[2021-12-18 04:50] LABS: PLATELET ESTIMATE NORMAL
[2021-12-18 05:07] LABS: LARGE PLATELETS FEW
[2021-12-18 05:08] LABS: HYPOCHROMASIA 2+
[2021-12-18 05:09] LABS: ELLIPTOCYTES 1+
[2021-12-18 05:10] LABS: SCHISTOCYTES 1+
[2021-12-18 05:11] LABS: ANISOCYTOSIS 1+
--- NOTE | 2021-12-18 06:15 | NUR ---
Patient in room CICU 2014. I have received report from Pearl CAROLINA and had the opportunity to ask questions and assume patient care.
--- NOTE | 2021-12-18 06:19 | NUR ---
Problems reprioritized. Patient report given, questions answered & plan of care reviewed with CAITY Shay.
[2021-12-18] MEDS: NORepinephrine 8mg/ 250ml NS 250 ML IV SCH (06:30)
--- NOTE | 2021-12-18 06:30 | NUR ---
Patient in room CICU 2014. I have received report from Pearl CAROLINA and had the opportunity to ask questions and assume patient care.
[2021-12-18] MEDS: ipratropium/albuterol 3ml nebule NEB SCH ×5 (07:05→23:12)
[2021-12-18] MEDS: budesonide 0.5mg/2ml UD nebule IH SCH ×2 (07:05→19:35)
[2021-12-18] MEDS: docusate sodium 100mg/10ml UD cup NG SCH ×2 (07:31→19:15)
[2021-12-18] MEDS: ARIPIPRAZOLE 10 MG TABLET NG SCH (07:32)
[2021-12-18] MEDS: nicotine 14mg patch - 24hr TD SCH (07:32)
[2021-12-18] MEDS: oxybutynin 5mg tablet NG SCH ×2 (07:32→19:15)
[2021-12-18] MEDS: lansoprazole 15mg solutab NG SCH (07:32)
[2021-12-18] MEDS: venlafaxine 37.5mg tablet NG SCH ×2 (07:32→19:15)
[2021-12-18] MEDS: loratadine 10mg tablet NG SCH (07:32)
[2021-12-18] MEDS: heparin, porcine 5000 units/ml vial SQ SCH ×2 (07:33→19:15)
[2021-12-18] MEDS ORDERED: levoFLOXACIN-Levaquin 750MG/D5 150 ML IV SCH (08:00)
--- NOTE | 2021-12-18 12:29 | NUR ---
Post mortem Care provided by 2 techs today. [facility] contacted to bulk picker pt. Mother wanting to wait until pt is picked up. Fam. out during post mortem. Addendum: 12/18/21 at 1231 by Jaspal Mckeon RN Wrong pt.
--- NOTE | 2021-12-18 16:44 | NUR ---
Family Pt SO to see her with another friend. Commotion in pts room and 2nd visitor was on the ground with 2 RN's an 1 tech. Pt assisted to sitting position and was very shaky. CN wth pt and pt said she need to use restroom. Staff assisting pt from behind as she had her own walker with her. She became light headed again and lowered to ground a second time. She stabilized and placed in WC. Tech took visitor to ED for eval. Pts BP on a slow downward trend as well as her O2 sats. Increase O2 and Levophed as needed. Repositioned ETT tube based on x-ray by RT. This corrected an air leak that was occasionally noted by RT, RN and MD Pt SO left for a short time to check on friend in ED.
--- NOTE | 2021-12-18 18:15 | NUR ---
Patient in room CICU 2014. I have received report from Jaspal CAROLINA and had the opportunity to ask questions and assume patient care.
[2021-12-18] MEDS: Melatonin 3mg tablet NG SCH (21:00)
[2021-12-19] VITALS (36 sets, daily range): BP systolic 90–119; BP diastolic 53–69
[2021-12-19] MEDS: piperacillin/tazo 3.375gm/50ml 50 ML IV SCH ×3 (00:23→19:46)
[2021-12-19] MEDS: mineral oil/petrolatum ophthal oint EACHEYE SCH ×4 (02:18→19:47)
[2021-12-19 02:56] LABS: BASOPHILS % (AUTO) 0.2 % (0-1); EOSINOPHILS # (AUTO) 0.2 X10'3 (0-0.9); HEMATOCRIT 25.4 % (35.0-45.0); HEMOGLOBIN 8.2 g/dl (12.0-16.0); LYMPHOCYTES # (AUTO) 0.4 X10'3 (1.1-4.8); LYMPHOCYTES % (AUTO) 2.1 % (21-51); MEAN CORPUSCULAR HEMOGLOBIN 26.9 PG (27.0-31.0); MEAN CORPUSCULAR HGB CONC 32.2 g/dL (33.0-36.5); MEAN CORPUSCULAR VOLUME 83.5 FL (78-98); MEAN PLATELET VOLUME 10.4 FL (7.4-10.4); MONOCYTES # (AUTO) 0.9 X10'3 (0-0.9); MONOCYTES % (AUTO) 4.2 % (2-12); NEUTROPHILS # (AUTO) 19.1 X10'3 (1.8-7.7); NEUTROPHILS % (AUTO) 92.5 % (42-75); PLATELET COUNT 277 X10'3 (140-440); RED BLOOD COUNT 3.04 X10'6 (4.20-5.60); RED CELL DISTRIBUTION WIDTH 21.6 % (11.5-14.5); WHITE BLOOD COUNT 20.6 X10'3 (4.5-11.0)
[2021-12-19 03:11] LABS: ALANINE AMINOTRANSFERASE 23 U/L (12-78); ALBUMIN 2.2 G/DL (3.4-5.0); ALBUMIN/GLOBULIN RATIO 0.6 (1.1-1.5); ALKALINE PHOSPHATASE 66 IU/L (46-116); ANION GAP 11 (8-16); ASPARTATE AMINO TRANSFERASE 13 U/L (10-37); BILIRUBIN,TOTAL 0.6 MG/DL (0.1-1.0); BLOOD UREA NITROGEN 41 MG/DL (7-18); BUN/CREATININE RATIO 15.4 (6.6-38.0); CALCIUM 9.4 MG/DL (8.5-10.1); CHLORIDE 105 MMOL/L (99-107); CREATININE 2.66 MG/DL (0.40-0.90); GLUCOSE 157 MG/DL (70-104); MAGNESIUM 1.9 MG/DL (1.5-2.4); SODIUM 140 MMOL/L (135-145); TOTAL CARBON DIOXIDE 24.3 MMOL/L (24-32); TOTAL PROTEIN 5.6 G/DL (6.4-8.2); eGFR 18 ML/MIN
[2021-12-19] MEDS: NORepinephrine 8mg/ 250ml NS 250 ML IV SCH (03:23)
[2021-12-19 03:53] LABS: ABG BASE EXCESS -4.3 mmol/L (-2.0-2.0); ABG HCO3 22.7 mmol/L (22.0-26.0); ABG OXYGEN SATURATION 92.2 % (94-97); ABG PCO2 (T) 53.6 mmHg (32.0-45.0); ABG PO2 (T) 74.2 mmHg (75.0-100.0); FCOHb 0.3 % (0.0-3.9); FMetHb 0.1 % (0.0-1.5); FO2Hb 91.8 % (94-97); PEEP 10 cm H2O; TOTAL HEMOGLOBIN 9.2 G/dl (12.0-16.0)
[2021-12-19 04:18] LABS: ABG BASE EXCESS -8.5 mmol/L (-2.0-2.0); ABG OXYGEN SATURATION 93.9 % (94-97); ABG PCO2 (T) 43.1 mmHg (32.0-45.0); ABG PO2 (T) 81.8 mmHg (75.0-100.0); FCOHb 0.3 % (0.0-3.9); FMetHb 0.2 % (0.0-1.5); FO2Hb 93.4 % (94-97); PEEP 10 cm H2O; RESPIRATORY RATE 16 b/min; TIDAL VOLUME 450 mL; TOTAL HEMOGLOBIN 8.8 G/dl (12.0-16.0)
[2021-12-19] MEDS: FENTANYL-0.9 % NACL/PF 100 ML IV SCH ×3 (05:10→20:40)
--- NOTE | 2021-12-19 06:30 | NUR ---
Problems reprioritized. Patient report given, questions answered & plan of care reviewed with Zenobia CAROLINA.
[2021-12-19] MEDS: budesonide 0.5mg/2ml UD nebule IH SCH ×2 (07:31→19:22)
[2021-12-19] MEDS: ipratropium/albuterol 3ml nebule NEB SCH ×5 (07:31→23:16)
[2021-12-19] MEDS ORDERED: vancomycin/NS 1 GM ADD-VANTAGE 250 ML IV PRN (07:55)
[2021-12-19 08:10] LABS: TRIGLYCERIDES 94 MG/DL (20-135)
[2021-12-19] MEDS: docusate sodium 100mg/10ml UD cup NG SCH ×2 (08:45→19:46)
[2021-12-19] MEDS: heparin, porcine 5000 units/ml vial SQ SCH ×2 (08:45→19:47)
[2021-12-19] MEDS: nicotine 14mg patch - 24hr TD SCH (08:46)
[2021-12-19] MEDS: oxybutynin 5mg tablet NG SCH ×2 (08:47→19:47)
[2021-12-19] MEDS: venlafaxine 37.5mg tablet NG SCH ×2 (08:47→19:47)
[2021-12-19] MEDS: lansoprazole 15mg solutab NG SCH (08:47)
[2021-12-19] MEDS: ARIPIPRAZOLE 10 MG TABLET NG SCH (08:47)
[2021-12-19] MEDS: loratadine 10mg tablet NG SCH (08:47)
[2021-12-19] MEDS ORDERED: VANCOMYCIN LEVEL IV ONE (10:30)
[2021-12-19] MEDS ORDERED: vancomycin/NS 1 GM ADD-VANTAGE 250 ML IV SCH (11:00)
[2021-12-19] MEDS ORDERED: vancomycin inj 500 MG in normal saline 100ml IV soln 100 ML IV SCH (12:00)
[2021-12-19] MEDS: ZINC/COPPER/MANGANESE/SELENIUM 1 ML, chromic chloride inj. 10 MCG, MVI, adult No.4 with... IV SCH ×4 (13:05)
--- NOTE | 2021-12-19 13:18 | NUR ---
F/u 12/19: Pt remains intubated tolerating trickle EN and PN at goal. LBM 12/08 receiving routine colace w/ miralax to start today per electrical accessories assembler. Lack of BM likely r/t prolonged NPO status prior to OR per electrical accessories assembler at rounds. Would benefit from EN advancement and weaning PN if MD agreeable. Will continue to monitor. Recs: 1. Trickle TF per MD using Vital AF at 15ml/hr to provide 360ml volume/day, 432 kcals, 292ml water, and 27g protein. 2. Continuous TPN per MD via central access using 3:1 Kabiven E 3.3% AA/9.8% Dex/3.9% lipid at 57ml/hr goal; to provide 1368ml volume/day, 45g AA, 134g dex (1.45mg/kg/min), and 1166 total kcals. 3. TG/PALB Q /; daily wts 4. IF TF to advance; Vital AF at 55ml/hr goal 5. IF TF to advance; additional water flush per MD while on PN 6. routine bowel care 7. upon extubation; advance as medically indicated to regular Addendum: 12/19/21 at [address] Amended: Links added.
[2021-12-19] MEDS ORDERED: methylPREDNISolone sod succ 125mg/2ml vial IV ONE (14:00)
[2021-12-19] MEDS: methylPREDNISolone sod succ 125mg/2ml vial IV SCH ×2 (14:00→19:46)
[2021-12-19 15:04] LABS: CLARITY,URINE SLIGHTLY CLOUDY (Clear); COLOR,URINE YELLOW (Yellow); GLUCOSE, URINE NEGATIVE (Neg); KETONES,URINE NEGATIVE (Neg); LEUKOCYTE ESTERASE ,URINE NEGATIVE (Neg); NITRITES, URINE NEGATIVE (Neg); OCCULT BLOOD,URINE SMALL (Neg); PROTEIN,URINE 100 mg/dl (Neg); UROBILINOGEN,URINE 0.2 E.U/dL (0.2-1.0)
[2021-12-19 15:15] LABS: UA COLLECTION TYPE NON-SPECIFIED
[2021-12-19 15:20] LABS: HYALINE CASTS 0-3 /LPF (NEGATIVE); RENAL CELLS, URINE FEW /HPF; WBC,URINE 0-4 /HPF (0-4)
[2021-12-19 15:21] LABS: MUCUS STRANDS FEW /LPF (Neg); SQUAMOUS EPITHELIAL CELL,UR NONE SEEN /LPF (FEW)
[2021-12-19 15:25] LABS: BACTERIA,URINE NONE SEEN /HPF (Neg)
[2021-12-19] MEDS: acetaminophen 1,000mg/100ml IV 100 ML IV PRN (15:31)
[2021-12-19] MEDS ORDERED: vancomycin/NS 1 GM ADD-VANTAGE 250 ML X 1 DOSE IV ONE (16:20)
--- NOTE | 2021-12-19 18:41 | NUR ---
Patient in room CICU 2014. I have received report from Zenobia CAROLINA and had the opportunity to ask questions and assume patient care.
--- NOTE | 2021-12-19 19:03 | NUR ---
Patient is febrile, asynchronous w/vent and desatting on 100% FiO2, T:39.1. Thermostat turned down, fan on, repositioned patient, HOB 30 degrees, turned to right side and removed gown. Protected patient's privacy by covering chest and groin with pillow cases.
--- NOTE | 2021-12-19 20:10 | NUR ---
Patient tachycardic, tachypneic, asynchronous with the vent. Sats 91% on FiO2 100%. Dr. Jarrett notified, orders received to restart Versed drip for ventilator synchrony.
[2021-12-19] MEDS: Melatonin 3mg tablet NG SCH (20:20)
[2021-12-19] MEDS: midazolam 100mg in NS 100ml 100 ML IV PRN (20:44)
[2021-12-20] VITALS (35 sets, daily range): BP systolic 85–152; BP diastolic 49–79
[2021-12-20] MEDS: NORepinephrine 8mg/ 250ml NS 250 ML IV SCH ×2 (00:10→15:42)
[2021-12-20] MEDS: fentaNYL 50mcg/ml PF inj. 2,500 MCG in normal saline 250ml IV soln 200 ML IV SCH ×3 (02:26→21:03)
[2021-12-20] MEDS: mineral oil/petrolatum ophthal oint EACHEYE SCH ×4 (02:26→20:43)
[2021-12-20] MEDS: methylPREDNISolone sod succ 125mg/2ml vial IV SCH ×5 (02:26→20:43)
[2021-12-20] MEDS: VANCOMYCIN LEVEL IV SCH (02:26)
[2021-12-20 03:02] LABS: ALANINE AMINOTRANSFERASE 19 U/L (12-78); ALBUMIN 1.9 G/DL (3.4-5.0); ALBUMIN/GLOBULIN RATIO 0.5 (1.1-1.5); ALKALINE PHOSPHATASE 64 IU/L (46-116); ANION GAP 12 (8-16); ASPARTATE AMINO TRANSFERASE 15 U/L (10-37); BILIRUBIN,TOTAL 0.5 MG/DL (0.1-1.0); BLOOD UREA NITROGEN 59 MG/DL (7-18); BUN/CREATININE RATIO 19.8 (6.6-38.0); CALCIUM 9.3 MG/DL (8.5-10.1); CHLORIDE 105 MMOL/L (99-107); CREATININE 2.98 MG/DL (0.40-0.90); GLUCOSE 189 MG/DL (70-104); POTASSIUM 4.2 MMOL/L (3.5-5.1); SODIUM 140 MMOL/L (135-145); TOTAL PROTEIN 5.6 G/DL (6.4-8.2); eGFR 16 ML/MIN
[2021-12-20 03:10] LABS: BASOPHILS % (AUTO) 0.1 % (0-1); EOSINOPHILS % (AUTO) 0 % (0-6); HEMATOCRIT 26.2 % (35.0-45.0); HEMOGLOBIN 8.2 g/dl (12.0-16.0); LYMPHOCYTES # (AUTO) 0.3 X10'3 (1.1-4.8); LYMPHOCYTES % (AUTO) 1.4 % (21-51); MEAN CORPUSCULAR HEMOGLOBIN 26.7 PG (27.0-31.0); MEAN CORPUSCULAR HGB CONC 31.3 g/dL (33.0-36.5); MEAN CORPUSCULAR VOLUME 85.3 FL (78-98); MEAN PLATELET VOLUME 10.3 FL (7.4-10.4); MONOCYTES # (AUTO) 0.6 X10'3 (0-0.9); NEUTROPHILS # (AUTO) 20.3 X10'3 (1.8-7.7); NEUTROPHILS % (AUTO) 95.5 % (42-75); PLATELET COUNT 292 X10'3 (140-440); RED BLOOD COUNT 3.07 X10'6 (4.20-5.60); RED CELL DISTRIBUTION WIDTH 21.2 % (11.5-14.5); WHITE BLOOD COUNT 21.2 X10'3 (4.5-11.0)
[2021-12-20] MEDS: FENTANYL-0.9 % NACL/PF 100 ML IV SCH (03:26)
[2021-12-20 03:56] LABS: ANISOCYTOSIS 3+; ELLIPTOCYTES 1+; PLATELET ESTIMATE NORMAL; SCHISTOCYTES FEW; TARGET CELLS FEW
[2021-12-20 04:21] LABS: ABG HCO3 20.6 mmol/L (22.0-26.0); ABG OXYGEN SATURATION 96.7 % (94-97); ABG PO2 (T) 99.4 mmHg (75.0-100.0); FCOHb 0.2 % (0.0-3.9); FMetHb 0.2 % (0.0-1.5); FO2Hb 96.3 % (94-97); PATIENT TEMPERATURE 37.2; PEEP 10 cm H2O; RESPIRATORY RATE 16 b/min; TIDAL VOLUME 450 mL; TOTAL HEMOGLOBIN 9.1 G/dl (12.0-16.0)
[2021-12-20] MEDS ORDERED: glucagon, human recombinant 1mg kit SUBCUT PRN (05:10)
[2021-12-20] MEDS ORDERED: DEXTROSE 15 GM of carb/4 tabs (each vial/BOTTLE has 4 tablets) PO PRN ×2 (05:10)
[2021-12-20] MEDS ORDERED: dextrose 50%-water 50ml dispensing syringe IV PRN ×2 (05:10)
--- NOTE | 2021-12-20 05:21 | NUR ---
Dr. Allen updated on patient's status during AM rounds. Orders placed by .
--- NOTE | 2021-12-20 06:16 | NUR ---
Problems reprioritized. Patient report given, questions answered & plan of care reviewed with Devin CAROLINA.
[2021-12-20] MEDS: ipratropium/albuterol 3ml nebule NEB SCH ×5 (07:16→23:13)
[2021-12-20] MEDS: budesonide 0.5mg/2ml UD nebule IH SCH ×2 (07:28→18:56)
[2021-12-20] MEDS: ARIPIPRAZOLE 10 MG TABLET NG SCH (07:50)
[2021-12-20] MEDS: nicotine 14mg patch - 24hr TD SCH (07:51)
[2021-12-20] MEDS: levoFLOXACIN-Levaquin 500mg/D5 100 ML IV SCH (07:51)
[2021-12-20] MEDS: oxybutynin 5mg tablet NG SCH (07:51)
[2021-12-20] MEDS: loratadine 10mg tablet NG SCH (07:51)
[2021-12-20] MEDS: venlafaxine 37.5mg tablet NG SCH ×2 (07:51→20:44)
[2021-12-20] MEDS: lansoprazole 15mg solutab NG SCH (07:51)
[2021-12-20] MEDS: docusate sodium 100mg/10ml UD cup NG SCH ×3 (07:52→20:43)
[2021-12-20] MEDS: heparin, porcine 5000 units/ml vial SQ SCH ×2 (07:52→20:44)
[2021-12-20] MEDS: piperacillin/tazo 3.375gm/50ml 50 ML IV SCH ×2 (08:34→20:44)
[2021-12-20] MEDS: insulin regular, human U-100 3ml vial - multi-dose SQ SCH ×2 (08:53→21:19)
[2021-12-20 10:05] LABS: VANCOMYCIN,RANDOM 21.2 UG/ML
[2021-12-20] MEDS: propofol 1000mg/100ml bottle 100 ML IV SCH (10:21)
[2021-12-20 10:28] LABS: TRIGLYCERIDES 73 MG/DL (20-135)
[2021-12-20] MEDS: ZINC/COPPER/MANGANESE/SELENIUM 1 ML, chromic chloride inj. 10 MCG, MVI, adult No.4 with... IV SCH ×4 (15:49)
[2021-12-20] MEDS: Melatonin 3mg tablet NG SCH (20:44)
[2021-12-20] MEDS: insulin glargine (Lantus) pen - multi-dose SQ SCH (21:21)
[2021-12-21] VITALS (36 sets, daily range): BP systolic 92–143; BP diastolic 51–71
[2021-12-21] MEDS: mineral oil/petrolatum ophthal oint EACHEYE SCH ×4 (02:36→20:19)
[2021-12-21] MEDS: VANCOMYCIN LEVEL IV SCH (02:37)
[2021-12-21] MEDS: methylPREDNISolone sod succ 125mg/2ml vial IV SCH ×2 (02:37→08:10)
[2021-12-21] MEDS: insulin regular, human U-100 3ml vial - multi-dose SQ SCH ×4 (02:53→20:41)
[2021-12-21 03:13] LABS: BASOPHILS % (AUTO) 0.1 % (0-1); EOSINOPHILS % (AUTO) 0 % (0-6); HEMATOCRIT 25.6 % (35.0-45.0); HEMOGLOBIN 8.3 g/dl (12.0-16.0); LYMPHOCYTES # (AUTO) 0.4 X10'3 (1.1-4.8); LYMPHOCYTES % (AUTO) 1.6 % (21-51); MEAN CORPUSCULAR HEMOGLOBIN 26.6 PG (27.0-31.0); MEAN CORPUSCULAR HGB CONC 32.6 g/dL (33.0-36.5); MEAN CORPUSCULAR VOLUME 81.5 FL (78-98); MEAN PLATELET VOLUME 10.5 FL (7.4-10.4); MONOCYTES # (AUTO) 0.7 X10'3 (0-0.9); MONOCYTES % (AUTO) 2.7 % (2-12); NEUTROPHILS % (AUTO) 95.6 % (42-75); PLATELET COUNT 267 X10'3 (140-440); RED BLOOD COUNT 3.14 X10'6 (4.20-5.60); RED CELL DISTRIBUTION WIDTH 21.1 % (11.5-14.5); WHITE BLOOD COUNT 24.1 X10'3 (4.5-11.0)
[2021-12-21 03:15] LABS: ABG BASE EXCESS -4.6 mmol/L (-2.0-2.0); ABG HCO3 19.8 mmol/L (22.0-26.0); ABG OXYGEN SATURATION 92.2 % (94-97); ABG PCO2 (T) 32.4 mmHg (32.0-45.0); ALLEN'S TEST POSITIVE; FCOHb 0.3 % (0.0-3.9); FMetHb 0.3 % (0.0-1.5); FO2Hb 91.6 % (94-97); PATIENT TEMPERATURE 35.9; PEEP 10 cm H2O; RESPIRATORY RATE 20 b/min; TIDAL VOLUME 450 mL; TOTAL HEMOGLOBIN 8.7 G/dl (12.0-16.0)
[2021-12-21 03:29] LABS: ALANINE AMINOTRANSFERASE 14 U/L (12-78); ALBUMIN 1.6 G/DL (3.4-5.0); ALBUMIN/GLOBULIN RATIO 0.4 (1.1-1.5); ALKALINE PHOSPHATASE 57 IU/L (46-116); ANION GAP 15 (8-16); ASPARTATE AMINO TRANSFERASE 10 U/L (10-37); BILIRUBIN,TOTAL 0.4 MG/DL (0.1-1.0); BLOOD UREA NITROGEN 82 MG/DL (7-18); BUN/CREATININE RATIO 28.8 (6.6-38.0); CALCIUM 9.3 MG/DL (8.5-10.1); CHLORIDE 105 MMOL/L (99-107); CREATININE 2.85 MG/DL (0.40-0.90); GLUCOSE 184 MG/DL (70-104); SODIUM 141 MMOL/L (135-145); TOTAL CARBON DIOXIDE 21.2 MMOL/L (24-32); TOTAL PROTEIN 5.2 G/DL (6.4-8.2); TRIGLYCERIDES 93 MG/DL (20-135); VANCOMYCIN,RANDOM 17.2 UG/ML; eGFR 17 ML/MIN
[2021-12-21 03:33] LABS: POTASSIUM 2.9 MMOL/L (3.5-5.1)
[2021-12-21] MEDS: potassium Cl 20mEq/100mL bag 100 ML IV PRN ×3 (04:06→09:58)
[2021-12-21] MEDS: propofol 1000mg/100ml bottle 100 ML IV SCH ×2 (04:24→17:18)
[2021-12-21 04:36] LABS: PLATELET ESTIMATE NORMAL
[2021-12-21 04:37] LABS: ANISOCYTOSIS 3+; SCHISTOCYTES FEW; TARGET CELLS 1+
[2021-12-21 04:38] LABS: ACANTHOCYTES 1+
[2021-12-21 04:40] LABS: LARGE PLATELETS FEW
[2021-12-21] MEDS: budesonide 0.5mg/2ml UD nebule IH SCH ×2 (07:33→23:14)
[2021-12-21] MEDS: ipratropium/albuterol 3ml nebule NEB SCH ×5 (07:33→23:14)
[2021-12-21] MEDS: docusate sodium 100mg/10ml UD cup NG SCH ×2 (08:00→20:00)
[2021-12-21] MEDS: loratadine 10mg tablet NG SCH (08:00)
[2021-12-21] MEDS: lansoprazole 15mg solutab NG SCH (08:09)
[2021-12-21] MEDS: ARIPIPRAZOLE 10 MG TABLET NG SCH (08:09)
[2021-12-21] MEDS: heparin, porcine 5000 units/ml vial SQ SCH ×2 (08:09→20:18)
[2021-12-21] MEDS: piperacillin/tazo 3.375gm/50ml 50 ML IV SCH ×2 (08:09→20:19)
[2021-12-21] MEDS: nicotine 14mg patch - 24hr TD SCH (08:10)
[2021-12-21] MEDS: venlafaxine 37.5mg tablet NG SCH ×2 (08:10→20:19)
[2021-12-21] MEDS: fentaNYL 50mcg/ml PF inj. 2,500 MCG in normal saline 250ml IV soln 200 ML IV SCH (15:38)
[2021-12-21] MEDS: NORepinephrine 8mg/ 250ml NS 250 ML IV SCH (17:50)
--- NOTE | 2021-12-21 18:30 | NUR ---
Patient in room CICU 2014. I have received report from CAITY Beltran and had the opportunity to ask questions and assume patient care.
[2021-12-21] MEDS: ZINC/COPPER/MANGANESE/SELENIUM 1 ML, chromic chloride inj. 10 MCG, MVI, adult No.4 with... IV SCH ×4 (19:20)
[2021-12-21] MEDS: methylPREDNISolone sod succ/PF 40mg inj. IV SCH (20:18)
[2021-12-21] MEDS: Melatonin 3mg tablet NG SCH (20:18)
[2021-12-21] MEDS: insulin glargine (Lantus) pen - multi-dose SQ SCH (20:46)
[2021-12-22] VITALS (35 sets, daily range): BP systolic 86–120; BP diastolic 46–62
[2021-12-22] MEDS: mineral oil/petrolatum ophthal oint EACHEYE SCH ×4 (01:45→20:17)
[2021-12-22] MEDS: methylPREDNISolone sod succ/PF 40mg inj. IV SCH ×4 (01:45→20:16)
[2021-12-22] MEDS: VANCOMYCIN LEVEL IV SCH (02:37)
[2021-12-22] MEDS: insulin regular, human U-100 3ml vial - multi-dose SQ SCH ×3 (02:37→20:46)
[2021-12-22 03:00] LABS: BASOPHILS # (AUTO) 0.1 X10'3 (0-0.2); BASOPHILS % (AUTO) 0.3 % (0-1); EOSINOPHILS % (AUTO) 0 % (0-6); HEMATOCRIT 22.8 % (35.0-45.0); HEMOGLOBIN 7.4 g/dl (12.0-16.0); LYMPHOCYTES # (AUTO) 0.5 X10'3 (1.1-4.8); LYMPHOCYTES % (AUTO) 2.4 % (21-51); MEAN CORPUSCULAR HEMOGLOBIN 26.8 PG (27.0-31.0); MEAN CORPUSCULAR HGB CONC 32.5 g/dL (33.0-36.5); MEAN CORPUSCULAR VOLUME 82.4 FL (78-98); MEAN PLATELET VOLUME 10.6 FL (7.4-10.4); MONOCYTES # (AUTO) 0.7 X10'3 (0-0.9); MONOCYTES % (AUTO) 3.9 % (2-12); NEUTROPHILS # (AUTO) 17.6 X10'3 (1.8-7.7); NEUTROPHILS % (AUTO) 93.4 % (42-75); PLATELET COUNT 241 X10'3 (140-440); RED BLOOD COUNT 2.77 X10'6 (4.20-5.60); RED CELL DISTRIBUTION WIDTH 21.6 % (11.5-14.5); WHITE BLOOD COUNT 18.8 X10'3 (4.5-11.0)
[2021-12-22 03:17] LABS: ABG BASE EXCESS -7.2 mmol/L (-2.0-2.0); ABG HCO3 17.8 mmol/L (22.0-26.0); ABG OXYGEN SATURATION 97.5 % (94-97); ABG PCO2 (T) 32.6 mmHg (32.0-45.0); ABG PO2 (T) 99.8 mmHg (75.0-100.0); ALLEN'S TEST POSITIVE; FCOHb 0.3 % (0.0-3.9); FMetHb 0.3 % (0.0-1.5); FO2Hb 96.9 % (94-97); PATIENT TEMPERATURE 36.5; PEEP 10 cm H2O; RESPIRATORY RATE 20 b/min; TIDAL VOLUME 450 mL; TOTAL HEMOGLOBIN 8.7 G/dl (12.0-16.0)
[2021-12-22 03:23] LABS: ALANINE AMINOTRANSFERASE 12 U/L (12-78); ALBUMIN 1.6 G/DL (3.4-5.0); ALBUMIN/GLOBULIN RATIO 0.5 (1.1-1.5); ALKALINE PHOSPHATASE 51 IU/L (46-116); ANION GAP 14 (8-16); ASPARTATE AMINO TRANSFERASE 11 U/L (10-37); BILIRUBIN,TOTAL 0.3 MG/DL (0.1-1.0); BLOOD UREA NITROGEN 101 MG/DL (7-18); CALCIUM 8.8 MG/DL (8.5-10.1); CHLORIDE 107 MMOL/L (99-107); CREATININE 3.06 MG/DL (0.40-0.90); GLUCOSE 158 MG/DL (70-104); MAGNESIUM 2.5 MG/DL (1.5-2.4); PHOSPHORUS 5.2 MG/DL (2.3-4.5); POTASSIUM 4.6 MMOL/L (3.5-5.1); SODIUM 140 MMOL/L (135-145); TOTAL CARBON DIOXIDE 18.8 MMOL/L (24-32); eGFR 15 ML/MIN
--- NOTE | 2021-12-22 04:30 | NUR ---
MD rounded on her this morning during AM rounds. Creatine in an upward trend, MD wants renal consult. MD also wants to wean off fentanyl to see if patient becomes asynchronous with vent. Titrated fentanyl down. In addition, Turned down respiratory rate from 20 to 18 all other settings remained the same Fio2: 30, TV: 450, Resp rate:18 and peep of 10.
[2021-12-22 05:18] LABS: ANISOCYTOSIS 3+; LARGE PLATELETS FEW; PLATELET ESTIMATE NORMAL
[2021-12-22 05:19] LABS: ELLIPTOCYTES 1+; TARGET CELLS FEW
[2021-12-22] MEDS ORDERED: vancomycin/NS 1 GM ADD-VANTAGE 250 ML IV ONE (06:45)
[2021-12-22] MEDS: propofol 1000mg/100ml bottle 100 ML IV SCH ×3 (06:50→20:43)
[2021-12-22] MEDS: ipratropium/albuterol 3ml nebule NEB SCH ×5 (07:11→23:03)
[2021-12-22] MEDS: budesonide 0.5mg/2ml UD nebule IH SCH ×2 (07:11→19:21)
[2021-12-22] MEDS: ARIPIPRAZOLE 10 MG TABLET NG SCH (07:24)
[2021-12-22] MEDS: heparin, porcine 5000 units/ml vial SQ SCH ×2 (07:25→20:16)
[2021-12-22] MEDS: loratadine 10mg tablet NG SCH (07:25)
[2021-12-22] MEDS: lansoprazole 15mg solutab NG SCH (07:25)
[2021-12-22] MEDS: venlafaxine 37.5mg tablet NG SCH ×2 (07:25→20:17)
[2021-12-22] MEDS: nicotine 14mg patch - 24hr TD SCH (07:26)
[2021-12-22] MEDS: docusate sodium 100mg/10ml UD cup NG SCH ×2 (07:29→20:00)
[2021-12-22] MEDS: levoFLOXACIN-Levaquin 500mg/D5 100 ML IV SCH (08:43)
[2021-12-22] MEDS: fentaNYL 50mcg/ml PF inj. 2,500 MCG in normal saline 250ml IV soln 200 ML IV SCH (09:51)
[2021-12-22] MEDS: piperacillin/tazo 3.375gm/50ml 50 ML IV SCH ×2 (09:52→20:42)
--- NOTE | 2021-12-22 11:01 | NUR ---
F/u 12/22: Pt tolerating trickle EN and PN at goal now having lots of stool per RN this AM. RD d/w RN regarding advancing EN and weaning PN if surgeon agreeable given functional gut and tolerating EN trickle since initiation. Noted pt started on Propofol at 6.31ml/hr providing additional 167 kcals/day per EMR. Also noted pt increasing BUN/Cr 101/3.06 likely impacted by steroids and not excessive nutrition w/ current nutrition support regimen. Will monitor for further Propofol rates and nutrition support adjustment needs this admit. Recs: 1. Trickle TF per MD using Vital AF at 15ml/hr to provide 360ml volume/day, 432 kcals, 292ml water, and 27g protein. 2. Continuous TPN per MD via central access using 3:1 Kabiven E 3.3% AA/9.8% Dex/3.9% lipid at 57ml/hr goal; to provide 1368ml volume/day, 45g AA, 134g dex (1.45mg/kg/min), and 1166 total kcals. 3. TG/PALB Q /; daily wts 4. Advance EN if MD agreeable given functional gut; Vital AF at 55ml/hr goal 5. IF TF to advance; additional water flush per MD while on PN 6. routine bowel care 7. upon extubation; advance as medically indicated to regular Addendum: 12/22/21 at [address] Amended: Links added.
[2021-12-22] MEDS ORDERED: furosemide 40mg/4ml inj IV SCH ×2 (13:54→16:00)
[2021-12-22] MEDS: albumin (human) 25% 100 ML IV solution IV SCH ×2 (14:11→20:13)
[2021-12-22] MEDS: NORepinephrine 8mg/ 250ml NS 250 ML IV SCH (14:40)
--- NOTE | 2021-12-22 14:44 | NUR ---
TF Consult: Pt TPN to wean w/ EN to advance to goal as tolerated today per RN. Updated recs below. Will monitor for EN tolerance and further adjustment needs. Recs: 1. Given Propofol at 6.31ml/hr providing 167 kcals/day; continuous TF per MD using Vital AF at 50ml/hr to provide 1200ml volume/day, 1440 kcals, 973ml water, and 90g protein. 2. IF Propofol off; Continuous TF using Vital AF at 55ml/hr goal; to provide 1320ml volume/day, 1584 kcals, 1071ml water, and 99g protein. 3. additional water flush per prescription clerk; monitor serum Na 4. PALB Q /; daily wts 5. routine bowel care 6. upon extubation; advance as medically indicated to regular Addendum: 12/22/21 at [address] Amended: Links added.
--- NOTE | 2021-12-22 15:35 | NUR ---
Non-blanching area noted on left buttock. Photo obtained. dietitian research aware. WOC consult placed.
[2021-12-22] MEDS ORDERED: albumin (human) 25% 100 ML IV solution IV SCH (16:00)
[2021-12-22] MEDS ORDERED: DEXTROSE 15 GM of carb/4 tabs (each vial/BOTTLE has 4 tablets) NG PRN ×2 (16:15→16:16)
[2021-12-22] MEDS ORDERED: bumetanide 0.25mg/ml 4ml vial IV ONE (16:50)
--- NOTE | 2021-12-22 18:10 | NUR ---
Problems reprioritized. Patient report given, questions answered & plan of care reviewed with Ashlee CAROLINA.
--- NOTE | 2021-12-22 18:30 | NUR ---
Patient in room CICU 2014. I have received report from CAITY Alamo and had the opportunity to ask questions and assume patient care.
[2021-12-22] MEDS: Melatonin 3mg tablet NG SCH (20:17)
[2021-12-22] MEDS: midodrine 5mg tablet NG SCH (20:17)
[2021-12-22] MEDS: insulin glargine (Lantus) pen - multi-dose SQ SCH (20:46)
[2021-12-23] VITALS (42 sets, daily range): BP systolic 85–188; BP diastolic 47–86
[2021-12-23] MEDS: fentaNYL 50mcg/ml PF inj. 2,500 MCG in normal saline 250ml IV soln 200 ML IV SCH ×2 (00:30→07:12)
[2021-12-23] MEDS: mineral oil/petrolatum ophthal oint EACHEYE SCH ×4 (01:49→20:26)
[2021-12-23] MEDS: methylPREDNISolone sod succ/PF 40mg inj. IV SCH ×2 (01:49→07:21)
[2021-12-23] MEDS ORDERED: cosyntropin 250mcg inj IV ONE (03:00)
[2021-12-23] MEDS: VANCOMYCIN LEVEL IV SCH (03:10)
[2021-12-23 03:16] LABS: BASOPHILS % (AUTO) 0.1 % (0-1); EOSINOPHILS % (AUTO) 0 % (0-6); LYMPHOCYTES # (AUTO) 0.4 X10'3 (1.1-4.8); LYMPHOCYTES % (AUTO) 2.4 % (21-51); MEAN CORPUSCULAR VOLUME 81.4 FL (78-98); MEAN PLATELET VOLUME 10.5 FL (7.4-10.4); MONOCYTES # (AUTO) 0.8 X10'3 (0-0.9); MONOCYTES % (AUTO) 5.1 % (2-12); NEUTROPHILS # (AUTO) 13.7 X10'3 (1.8-7.7); NEUTROPHILS % (AUTO) 92.4 % (42-75); PLATELET COUNT 246 X10'3 (140-440); RED BLOOD COUNT 2.68 X10'6 (4.20-5.60); RED CELL DISTRIBUTION WIDTH 21.8 % (11.5-14.5); WHITE BLOOD COUNT 14.8 X10'3 (4.5-11.0)
[2021-12-23 03:23] LABS: HEMATOCRIT 21.8 % (35.0-45.0)
[2021-12-23 03:29] LABS: ALANINE AMINOTRANSFERASE 14 U/L (12-78); ALBUMIN 2.5 G/DL (3.4-5.0); ALBUMIN/GLOBULIN RATIO 0.8 (1.1-1.5); ALKALINE PHOSPHATASE 42 IU/L (46-116); ANION GAP 14 (8-16); ASPARTATE AMINO TRANSFERASE 11 U/L (10-37); BILIRUBIN,TOTAL 0.4 MG/DL (0.1-1.0); BLOOD UREA NITROGEN 113 MG/DL (7-18); BUN/CREATININE RATIO 35.9 (6.6-38.0); CALCIUM 8.8 MG/DL (8.5-10.1); CHLORIDE 107 MMOL/L (99-107); CREATININE 3.15 MG/DL (0.40-0.90); GLUCOSE 110 MG/DL (70-104); MAGNESIUM 2.5 MG/DL (1.5-2.4); PHOSPHORUS 6.5 MG/DL (2.3-4.5); POTASSIUM 4.5 MMOL/L (3.5-5.1); SODIUM 141 MMOL/L (135-145); TOTAL CARBON DIOXIDE 20.4 MMOL/L (24-32); TOTAL PROTEIN 5.6 G/DL (6.4-8.2); TRIGLYCERIDES 224 MG/DL (20-135); VANCOMYCIN,RANDOM 22.9 UG/ML; eGFR 15 ML/MIN
[2021-12-23 03:37] LABS: ABG BASE EXCESS -7.7 mmol/L (-2.0-2.0); ABG HCO3 17.4 mmol/L (22.0-26.0); ABG OXYGEN SATURATION 97.7 % (94-97); ABG PO2 (T) 107.4 mmHg (75.0-100.0); ALLEN'S TEST POSITIVE; FCOHb 0.3 % (0.0-3.9); FMetHb 0.4 % (0.0-1.5); PATIENT TEMPERATURE 36.7; PEEP 10 cm H2O; RESPIRATORY RATE 18 b/min; TIDAL VOLUME 450 mL; TOTAL HEMOGLOBIN 7.8 G/dl (12.0-16.0)
[2021-12-23] MEDS: propofol 1000mg/100ml bottle 100 ML IV SCH ×2 (04:09→15:43)
--- NOTE | 2021-12-23 04:30 | NUR ---
MD rounded on pt this morning and strongly suggested a renal consult. There has been an increase of phos at 6.5 and BUN of 113 and creatine of 3.15. In addition to continue to wean off sedation to be able to extubate. MD recommended dialysis and was notified of hgb: 7.0 and Hct:21.8. MD changed Tidal volume to 375, all other ventilatory settings remained unchanged. Fio2: 30, TV:375, Rate of 18 and peep of 10. Pt still on levo, fentanyl and propofol. Lastly, MD ordered a C.diff screening for next bowel movement to be collected.
[2021-12-23] MEDS: albumin (human) 25% 100 ML IV solution IV SCH ×3 (04:32→20:29)
[2021-12-23 04:34] LABS: ANISOCYTOSIS 3+
[2021-12-23 04:36] LABS: ELLIPTOCYTES 1+
--- NOTE | 2021-12-23 06:11 | NUR ---
Patient in room CICU 2014. I have received report from CAITY Alamo and had the opportunity to ask questions and assume patient care.
[2021-12-23] MEDS ORDERED: insulin Lispro (HumaLOG) vial - multi-dose SQ SCH (06:40)
[2021-12-23] MEDS: ARIPIPRAZOLE 10 MG TABLET NG SCH (07:22)
[2021-12-23] MEDS: venlafaxine 37.5mg tablet NG SCH ×2 (07:22→20:27)
[2021-12-23] MEDS: nicotine 14mg patch - 24hr TD SCH (07:22)
[2021-12-23] MEDS: lansoprazole 15mg solutab NG SCH (07:22)
[2021-12-23] MEDS: loratadine 10mg tablet NG SCH (07:22)
[2021-12-23] MEDS: midodrine 5mg tablet NG SCH ×2 (07:22→20:27)
[2021-12-23] MEDS: piperacillin/tazo 3.375gm/50ml 50 ML IV SCH (07:23)
[2021-12-23] MEDS: docusate sodium 100mg/10ml UD cup NG SCH ×2 (07:23→20:00)
[2021-12-23] MEDS: ipratropium/albuterol 3ml nebule NEB SCH ×5 (07:52→23:46)
[2021-12-23] MEDS: heparin, porcine 5000 units/ml vial SQ SCH ×2 (08:25→20:28)
--- NOTE | 2021-12-23 08:29 | NUR ---
Discussed pt. with Dr. Vasquez. Orders rec'd to start Bumex scheduled, give 2 U PRBC and wean sedation in order to obtain weaning parameters.
[2021-12-23 08:47] LABS: PLATELET ESTIMATE NORMAL
[2021-12-23] MEDS: budesonide 0.5mg/2ml UD nebule IH SCH ×2 (09:00→19:19)
[2021-12-23] MEDS: bumetanide 0.25mg/ml 4ml vial IV SCH ×3 (09:49→23:58)
[2021-12-23] MEDS ORDERED: bumetanide 0.25mg/ml 4ml vial IV ONE (10:25)
[2021-12-23] MEDS: NORepinephrine 8mg/ 250ml NS 250 ML IV SCH (11:30)
--- NOTE | 2021-12-23 11:39 | NUR ---
WO TIME CLERK here to assess pt.
--- NOTE | 2021-12-23 12:44 | NUR ---
Dr. Vasquez here to talk to pt's SO. COnsent obtained for placement of temp. HD catheter if needed.
[2021-12-23] MEDS: insulin regular, human U-100 3ml vial - multi-dose SQ SCH (14:19)
[2021-12-23] MEDS: hydrocortisone sod succ/PF 100mg/2ml inj. IV SCH ×2 (15:49→23:59)
--- NOTE | 2021-12-23 17:21 | NUR ---
Urine samples obtained per MD order.
--- NOTE | 2021-12-23 17:22 | NUR ---
Discoloring noted on buttocks today. Mottling? WO SMT TECHNICIAN aware. Will continue to monitor.
--- NOTE | 2021-12-23 18:30 | NUR ---
Patient in room CICU 2014. I have received report from Cally CAROLINA, and had the opportunity to ask questions and assume patient care.
[2021-12-23] MEDS: QUEtiapine 25mg tablet NG SCH (20:27)
[2021-12-23] MEDS: Melatonin 3mg tablet NG SCH (20:30)
[2021-12-23] MEDS: insulin glargine (Lantus) pen - multi-dose SQ SCH (20:48)
[2021-12-24] VITALS (35 sets, daily range): BP systolic 105–167; BP diastolic 51–78
[2021-12-24] MEDS: mineral oil/petrolatum ophthal oint EACHEYE SCH ×4 (02:00→20:00)
[2021-12-24 02:33] LABS: BASOPHILS # (AUTO) 0.1 X10'3 (0-0.2); BASOPHILS % (AUTO) 0.5 % (0-1); EOSINOPHILS % (AUTO) 0.1 % (0-6); HEMATOCRIT 26.8 % (35.0-45.0); HEMOGLOBIN 8.6 g/dl (12.0-16.0); LYMPHOCYTES # (AUTO) 0.4 X10'3 (1.1-4.8); LYMPHOCYTES % (AUTO) 2.4 % (21-51); MEAN CORPUSCULAR HEMOGLOBIN 26.8 PG (27.0-31.0); MEAN CORPUSCULAR HGB CONC 32.2 g/dL (33.0-36.5); MEAN CORPUSCULAR VOLUME 83.3 FL (78-98); MEAN PLATELET VOLUME 10.6 FL (7.4-10.4); MONOCYTES # (AUTO) 0.6 X10'3 (0-0.9); MONOCYTES % (AUTO) 4.3 % (2-12); NEUTROPHILS # (AUTO) 13.8 X10'3 (1.8-7.7); NEUTROPHILS % (AUTO) 92.7 % (42-75); PLATELET COUNT 235 X10'3 (140-440); RED BLOOD COUNT 3.21 X10'6 (4.20-5.60); RED CELL DISTRIBUTION WIDTH 19.9 % (11.5-14.5); WHITE BLOOD COUNT 14.8 X10'3 (4.5-11.0)
[2021-12-24 02:45] LABS: ALANINE AMINOTRANSFERASE 13 U/L (12-78); ALBUMIN 3.2 G/DL (3.4-5.0); ALBUMIN/GLOBULIN RATIO 1.2 (1.1-1.5); ALKALINE PHOSPHATASE 39 IU/L (46-116); ANION GAP 17 (8-16); ASPARTATE AMINO TRANSFERASE 10 U/L (10-37); BILIRUBIN,TOTAL 0.5 MG/DL (0.1-1.0); BLOOD UREA NITROGEN 128 MG/DL (7-18); BUN/CREATININE RATIO 39.6 (6.6-38.0); CALCIUM 8.6 MG/DL (8.5-10.1); CHLORIDE 109 MMOL/L (99-107); CREATININE 3.23 MG/DL (0.40-0.90); GLUCOSE 132 MG/DL (70-104); MAGNESIUM 2.4 MG/DL (1.5-2.4); PHOSPHORUS 7.1 MG/DL (2.3-4.5); POTASSIUM 3.8 MMOL/L (3.5-5.1); SODIUM 146 MMOL/L (135-145); TOTAL CARBON DIOXIDE 20.5 MMOL/L (24-32); TOTAL PROTEIN 5.8 G/DL (6.4-8.2); eGFR 14 ML/MIN
[2021-12-24 04:16] LABS: ABG HCO3 17.1 mmol/L (22.0-26.0); ABG OXYGEN SATURATION 96.1 % (94-97); ABG PCO2 (T) 32.9 mmHg (32.0-45.0); ABG PO2 (T) 91.4 mmHg (75.0-100.0); ALLEN'S TEST POSITIVE; FCOHb 0.3 % (0.0-3.9); FMetHb 0.2 % (0.0-1.5); FO2Hb 95.6 % (94-97); TOTAL HEMOGLOBIN 8.8 G/dl (12.0-16.0)
[2021-12-24] MEDS: fentaNYL 50mcg/ml PF inj. 2,500 MCG in normal saline 250ml IV soln 200 ML IV SCH ×2 (04:18→18:30)
[2021-12-24] MEDS: albumin (human) 25% 100 ML IV solution IV SCH (04:56)
--- NOTE | 2021-12-24 06:30 | NUR ---
Patient in room CICU 2014. I have received report from CAITY Rosado and had the opportunity to ask questions and assume patient care.
[2021-12-24] MEDS: ipratropium/albuterol 3ml nebule NEB SCH ×5 (07:14→23:19)
[2021-12-24] MEDS: budesonide 0.5mg/2ml UD nebule IH SCH ×2 (07:14→19:20)
[2021-12-24] MEDS: NORepinephrine 8mg/ 250ml NS 250 ML IV SCH (07:26)
[2021-12-24] MEDS: lansoprazole 15mg solutab NG SCH (07:48)
[2021-12-24] MEDS: levoFLOXACIN-Levaquin 500mg/D5 100 ML IV SCH (07:48)
[2021-12-24] MEDS: ARIPIPRAZOLE 10 MG TABLET NG SCH (07:50)
[2021-12-24] MEDS: hydrocortisone sod succ/PF 100mg/2ml inj. IV SCH ×3 (07:50→23:31)
[2021-12-24] MEDS: QUEtiapine 25mg tablet NG SCH ×2 (07:51→19:59)
[2021-12-24] MEDS: midodrine 5mg tablet NG SCH ×2 (07:51→20:00)
[2021-12-24] MEDS: venlafaxine 37.5mg tablet NG SCH ×2 (07:51→19:59)
[2021-12-24] MEDS: loratadine 10mg tablet NG SCH (07:51)
[2021-12-24] MEDS: heparin, porcine 5000 units/ml vial SQ SCH ×2 (07:52→20:00)
[2021-12-24] MEDS: bumetanide 0.25mg/ml 4ml vial IV SCH ×3 (07:53→23:31)
[2021-12-24] MEDS: docusate sodium 100mg/10ml UD cup NG SCH ×2 (07:53→19:58)
[2021-12-24] MEDS: nicotine 14mg patch - 24hr TD SCH (07:54)
[2021-12-24] MEDS: propofol 1000mg/100ml bottle 100 ML IV SCH ×2 (08:19→20:49)
[2021-12-24] MEDS: insulin regular, human U-100 3ml vial - multi-dose SQ SCH ×3 (08:31→20:33)
--- NOTE | 2021-12-24 09:00 | NUR ---
At about 0700 patient's propofol rate was cut in half to 5mcg/kg/min to assess how well she tolerates reduction in sedation. Around this same time RT turned the patients pressure support down from 15 to 10. Shortly after, patient's heart rate went from a baseline of 80s-90s to a heart rate of 120s, then patient became more agitated, kicking her legs and stretching against the restraints. Dr. Vasquez rounded at the time and stated to turn the Propofol back up to 10mcg/kg/min and the pressure support back up to 15.
--- NOTE | 2021-12-24 10:30 | NUR ---
Rounds note: Dr. Vasquez plans to call for Nephrology consult. Plan for today is to slowly diurese the patient. Orders to check prealbumin MTH given and placed.
[2021-12-24 10:37] LABS: PREALBUMIN 16.7 MG/DL (19-36)
--- NOTE | 2021-12-24 14:00 | NUR ---
Dr. Berman rounded. Informed of current drainage from midline incision, orders to continue to watch it and continue daily dressing changes.
[2021-12-24 15:39] LABS: CLARITY,URINE SLIGHTLY CLOUDY (Clear); COLOR,URINE YELLOW (Yellow); GLUCOSE, URINE NEGATIVE (Neg); KETONES,URINE NEGATIVE (Neg); LEUKOCYTE ESTERASE ,URINE NEGATIVE (Neg); NITRITES, URINE NEGATIVE (Neg); OCCULT BLOOD,URINE MODERATE (Neg); PROTEIN,URINE TRACE mg/dl (Neg); UROBILINOGEN,URINE 0.2 E.U/dL (0.2-1.0)
[2021-12-24 15:41] LABS: UA COLLECTION TYPE NON-SPECIFIED
[2021-12-24 15:52] LABS: TOTAL PROTEIN,URINE RANDOM 55.6 MG/DL
[2021-12-24 16:01] LABS: YEAST MODERATE /HPF (NEGATIVE)
[2021-12-24 16:03] LABS: SQUAMOUS EPITHELIAL CELL,UR NONE SEEN /LPF (FEW); WBC,URINE 0-4 /HPF (0-4)
[2021-12-24 16:06] LABS: BACTERIA,URINE NONE SEEN /HPF (Neg)
[2021-12-24 16:43] LABS: UA EOSINOPHILS NO EOS /HPF
--- NOTE | 2021-12-24 18:10 | NUR ---
Problems reprioritized. Patient report given, questions answered & plan of care reviewed with CAITY Kang.
[2021-12-24] MEDS: Melatonin 3mg tablet NG SCH (18:17)
--- NOTE | 2021-12-24 18:30 | NUR ---
Patient in room CICU 2014. I have received report from CAITY Crain and had the opportunity to ask questions and assume patient care.
--- NOTE | 2021-12-24 19:05 | NUR ---
Dr. Vasquez called to order a stat CMP, he stated that he would like a 500 cc bolus of NS if patient CR is greater than 3. Same orders apply for the AM draws. He also mentioned that he may place the patient on a bumex gtt in the morning.
--- NOTE | 2021-12-24 20:00 | NUR ---
Colace held due to patient having diarrhea, rectal tube in place. Midodrine held due to hypertension, SBP was in 160s when I arrived this evening and is currently 148/68 after a small bolus to keep rass -1. Will continue to reassess the need for midodrine.
[2021-12-24 20:03] LABS: ALANINE AMINOTRANSFERASE 14 U/L (12-78); ALBUMIN 3.2 G/DL (3.4-5.0); ALBUMIN/GLOBULIN RATIO 1.3 (1.1-1.5); ALKALINE PHOSPHATASE 42 IU/L (46-116); ANION GAP 18 (8-16); ASPARTATE AMINO TRANSFERASE 13 U/L (10-37); BILIRUBIN,TOTAL 0.5 MG/DL (0.1-1.0); BLOOD UREA NITROGEN 137 MG/DL (7-18); BUN/CREATININE RATIO 42.3 (6.6-38.0); CALCIUM 8.6 MG/DL (8.5-10.1); CHLORIDE 110 MMOL/L (99-107); CREATININE 3.24 MG/DL (0.40-0.90); GLUCOSE 132 MG/DL (70-104); SODIUM 149 MMOL/L (135-145); TOTAL CARBON DIOXIDE 20.6 MMOL/L (24-32); TOTAL PROTEIN 5.7 G/DL (6.4-8.2); eGFR 14 ML/MIN
[2021-12-24] MEDS ORDERED: normal saline 500ml IV soln 500 ML IV ONE (20:15)
[2021-12-24] MEDS: potassium Cl 20mEq/100mL bag 100 ML IV PRN ×3 (20:25→23:33)
[2021-12-24] MEDS: insulin glargine (Lantus) pen - multi-dose SQ SCH (20:34)
[2021-12-25] VITALS (37 sets, daily range): BP systolic 93–174; BP diastolic 49–75
[2021-12-25] MEDS: mineral oil/petrolatum ophthal oint EACHEYE SCH ×4 (02:06→20:28)
[2021-12-25] MEDS: potassium Cl 20mEq/100mL bag 100 ML IV PRN (02:12)
[2021-12-25] MEDS: insulin regular, human U-100 3ml vial - multi-dose SQ SCH ×4 (02:20→20:50)
[2021-12-25 03:03] LABS: BASOPHILS # (AUTO) 0.1 X10'3 (0-0.2); BASOPHILS % (AUTO) 0.5 % (0-1); EOSINOPHILS # (AUTO) 0.1 X10'3 (0-0.9); EOSINOPHILS % (AUTO) 0.4 % (0-6); HEMATOCRIT 26.1 % (35.0-45.0); HEMOGLOBIN 8.4 g/dl (12.0-16.0); LYMPHOCYTES # (AUTO) 0.4 X10'3 (1.1-4.8); LYMPHOCYTES % (AUTO) 2.1 % (21-51); MEAN CORPUSCULAR HGB CONC 32.4 g/dL (33.0-36.5); MEAN CORPUSCULAR VOLUME 83.4 FL (78-98); MEAN PLATELET VOLUME 11.1 FL (7.4-10.4); MONOCYTES # (AUTO) 0.6 X10'3 (0-0.9); MONOCYTES % (AUTO) 3.2 % (2-12); NEUTROPHILS # (AUTO) 16.4 X10'3 (1.8-7.7); NEUTROPHILS % (AUTO) 93.8 % (42-75); PLATELET COUNT 259 X10'3 (140-440); RED BLOOD COUNT 3.13 X10'6 (4.20-5.60); RED CELL DISTRIBUTION WIDTH 19.9 % (11.5-14.5); WHITE BLOOD COUNT 17.5 X10'3 (4.5-11.0)
[2021-12-25 03:21] LABS: ALANINE AMINOTRANSFERASE 13 U/L (12-78); ALBUMIN/GLOBULIN RATIO 1.2 (1.1-1.5); ALKALINE PHOSPHATASE 41 IU/L (46-116); ANION GAP 16 (8-16); ASPARTATE AMINO TRANSFERASE 11 U/L (10-37); BILIRUBIN,TOTAL 0.4 MG/DL (0.1-1.0); BLOOD UREA NITROGEN 138 MG/DL (7-18); CALCIUM 8.5 MG/DL (8.5-10.1); CHLORIDE 113 MMOL/L (99-107); CREATININE 3.21 MG/DL (0.40-0.90); GLUCOSE 133 MG/DL (70-104); MAGNESIUM 2.2 MG/DL (1.5-2.4); PHOSPHORUS 6.9 MG/DL (2.3-4.5); POTASSIUM 3.9 MMOL/L (3.5-5.1); PREALBUMIN 19.9 MG/DL (19-36); SODIUM 149 MMOL/L (135-145); TOTAL PROTEIN 5.5 G/DL (6.4-8.2); eGFR 15 ML/MIN
[2021-12-25] MEDS ORDERED: normal saline 500ml IV soln 500 ML IV ONE (04:00)
[2021-12-25] MEDS: propofol 1000mg/100ml bottle 100 ML IV SCH ×2 (04:08→20:33)
[2021-12-25 04:19] LABS: ANISOCYTOSIS 2+; PLATELET ESTIMATE NORMAL; TOTAL CELLS COUNTED 100
[2021-12-25 04:20] LABS: LARGE PLATELETS FEW; SCHISTOCYTES 1+
[2021-12-25 04:57] LABS: ABG BASE EXCESS -8.5 mmol/L (-2.0-2.0); ABG HCO3 17.5 mmol/L (22.0-26.0); ABG OXYGEN SATURATION 95.2 % (94-97); ABG PCO2 (T) 37.4 mmHg (32.0-45.0); ABG PO2 (T) 86.9 mmHg (75.0-100.0); FCOHb 0.3 % (0.0-3.9); FMetHb 0.2 % (0.0-1.5); FO2Hb 94.7 % (94-97); PATIENT TEMPERATURE 36.6
--- NOTE | 2021-12-25 06:07 | NUR ---
Problems reprioritized. Patient report given, questions answered & plan of care reviewed with CAITY Crain.
--- NOTE | 2021-12-25 06:28 | NUR ---
Patient in room CICU 2014. I have received report from CAITY Kang and had the opportunity to ask questions and assume patient care.
--- NOTE | 2021-12-25 07:30 | NUR ---
Received report from CAITY Holman. Patient to room 2014 from the ED via shamar CAROLINA. Patient pulled gently over to ICU bed and connected to our monitors. Patient noted to have heart rate in the 50s which is also what was reported by previous RN. Patient was turned for skin assessment and removal of old bedding. Patient tolerated well. Addendum: 12/25/21 at 0844 by Breann Bhatt RN Wrong patient
[2021-12-25] MEDS: ipratropium/albuterol 3ml nebule NEB SCH ×5 (07:44→23:08)
[2021-12-25] MEDS: budesonide 0.5mg/2ml UD nebule IH SCH ×2 (07:44→19:52)
[2021-12-25] MEDS: docusate sodium 100mg/10ml UD cup NG SCH ×2 (07:50→20:26)
[2021-12-25] MEDS ORDERED: bumetanide 0.25mg/ml 4ml vial IV SCH (08:00)
[2021-12-25] MEDS: midodrine 5mg tablet NG SCH ×2 (08:03→20:26)
[2021-12-25] MEDS: hydrocortisone sod succ/PF 100mg/2ml inj. IV SCH ×2 (08:03→16:51)
[2021-12-25] MEDS: lansoprazole 15mg solutab NG SCH (08:03)
[2021-12-25] MEDS: nicotine 14mg patch - 24hr TD SCH (08:03)
[2021-12-25] MEDS: venlafaxine 37.5mg tablet NG SCH ×2 (08:04→20:26)
[2021-12-25] MEDS: loratadine 10mg tablet NG SCH (08:04)
[2021-12-25] MEDS: ARIPIPRAZOLE 10 MG TABLET NG SCH (08:04)
[2021-12-25] MEDS: QUEtiapine 25mg tablet NG SCH ×2 (08:04→20:26)
[2021-12-25] MEDS: heparin, porcine 5000 units/ml vial SQ SCH ×2 (08:04→20:28)
[2021-12-25] MEDS: fentaNYL 50mcg/ml PF inj. 2,500 MCG in normal saline 250ml IV soln 200 ML IV SCH ×2 (08:06→13:31)
--- NOTE | 2021-12-25 08:40 | NUR ---
Called Dr. Vasquez about the patient's heart rate sustaining in the high 40s-low 50s. Per patient his baseline at rest heart rate is typically 48-52 and with activity his heart rate is 60-65. Patient also stated that his director of enrollment said he could have a couple of cups of coffee in the mornings to help raise his heart rate when he is sustaining in the 40s. Informed Dr. Vasquez of this information and he stated to give the patient one cup of coffee. Addendum: 12/25/21 at 0844 by Breann Bhatt RN Wrong patient
--- NOTE | 2021-12-25 11:02 | NUR ---
Reassessment: Pt remains intubated and tolerating TF at goal rate with GRV WNL. Propofol visualized at bedside to have increased to 13.05 mL/hr providing ~344 kcal/day. Per RN Propofol rate unlikely to change at this time. MD arellano adjusting TF recs, see updated recommendations below that were d/w RN. Updated TF recommendations will provide less phosphorus which is appropriate in view of elevated serum phos since 12/22. Despite elevated serum Na pt to continue without water flushes at this time in hopes of removing fluid per MD. LBM 12/24, with a rectal tube in place though no documentation of stool output. Will continue to follow and make recommendations as appropriate. Recommendations: 1. Given Propofol at 13.05 mL/hr (344 kcal/day); continuous TF per MD using Vital HP at 50 mL/hr to provide 1200 mL volume/day, 1200 kcal, 105 g protein, and 1003 mL water 2. IF Propofol off; Continuous TF using Vital AF with 55 ml/hr goal; to provide 1320 ml volume/day, 1584 kcal, 1071 ml water, and 99 g protein. 3. Additional water flush per health teacher; monitor serum Na 4. PALB q Wednesday/ 5. Daily scaled weights 6. Routine bowel care 7. Advance to regular diet as medically indicated following extubation; consider BSS with ST given prolonged intubation Addendum: 12/25/21 at [address] Amended: Links added.
[2021-12-25] MEDS ORDERED: bumetanide inj. 10 MG in normal saline 100ml IV soln 60 ML IV SCH (12:00)
[2021-12-25 16:10] LABS: ALBUMIN 2.9 G/DL (3.4-5.0); ANION GAP 19 (8-16); BLOOD UREA NITROGEN 139 MG/DL (7-18); BUN/CREATININE RATIO 44.6 (6.6-38.0); CALCIUM 8.6 MG/DL (8.5-10.1); CHLORIDE 115 MMOL/L (99-107); CREATININE 3.12 MG/DL (0.40-0.90); GLUCOSE 134 MG/DL (70-104); MAGNESIUM 2.1 MG/DL (1.5-2.4); PHOSPHORUS 7.7 MG/DL (2.3-4.5); POTASSIUM 3.7 MMOL/L (3.5-5.1); SODIUM 152 MMOL/L (135-145); TOTAL CARBON DIOXIDE 18.2 MMOL/L (24-32); eGFR 15 ML/MIN
--- NOTE | 2021-12-25 17:03 | NUR ---
Patient's midline incision dressing was changed at 0700 this morning. At about 1545 the patient's dressing was saturated. The dressing was taken down and the drainage was noted to have a cola/camacho tone to it. This was a new drainage that she did not have yesterday or this morning with the dressing change. Dr. Vasquez was called and informed of this change. He stated that he would be over to take a look at it. Upon arrival Dr. Vasquez agreed that it didn't look like the normal drainage that she had been having and stated to give Dr. Berman a call. Dr. Berman was called and informed of the change in drainage color, consistency, and amount, he was also informed that the WBC went from 14 to 17, he was asked if he wanted to restart antibiotics. Dr. Berman asked if the patient's abdomen was soft and it was confirmed that her abdomen is soft. He then stated that it was probably okay and to hold off on restarting antibiotic tonight and to reassess in the AM. Dr. Vasquez informed of this conversation and agreed to wait until tomorrow to make any changes.
--- NOTE | 2021-12-25 18:29 | NUR ---
Problems reprioritized. Patient report given, questions answered & plan of care reviewed with CAITY Moy.
[2021-12-25] MEDS: Melatonin 3mg tablet NG SCH (20:26)
[2021-12-25] MEDS: bumetanide 0.25mg/ml 4ml vial IV SCH (20:27)
[2021-12-25] MEDS: insulin glargine (Lantus) pen - multi-dose SQ SCH (20:51)
[2021-12-25] MEDS: hydrALAZINE 20mg/ml inj. IV PRN (22:19)
[2021-12-26] VITALS (34 sets, daily range): BP systolic 94–177; BP diastolic 48–89
[2021-12-26] MEDS: mineral oil/petrolatum ophthal oint EACHEYE SCH ×4 (02:37→20:29)
[2021-12-26 03:00] LABS: BASOPHILS % (AUTO) 0.2 % (0-1); EOSINOPHILS % (AUTO) 0.1 % (0-6); HEMATOCRIT 26.7 % (35.0-45.0); HEMOGLOBIN 8.6 g/dl (12.0-16.0); LYMPHOCYTES # (AUTO) 0.3 X10'3 (1.1-4.8); LYMPHOCYTES % (AUTO) 1.4 % (21-51); MEAN CORPUSCULAR HEMOGLOBIN 27.2 PG (27.0-31.0); MEAN CORPUSCULAR HGB CONC 32.4 g/dL (33.0-36.5); MEAN CORPUSCULAR VOLUME 83.9 FL (78-98); MEAN PLATELET VOLUME 11.2 FL (7.4-10.4); MONOCYTES # (AUTO) 0.7 X10'3 (0-0.9); MONOCYTES % (AUTO) 3.3 % (2-12); NEUTROPHILS # (AUTO) 21.1 X10'3 (1.8-7.7); PLATELET COUNT 287 X10'3 (140-440); RED BLOOD COUNT 3.18 X10'6 (4.20-5.60); RED CELL DISTRIBUTION WIDTH 20.5 % (11.5-14.5); WHITE BLOOD COUNT 22.3 X10'3 (4.5-11.0)
[2021-12-26 03:15] LABS: ABG BASE EXCESS -7.4 mmol/L (-2.0-2.0); ABG OXYGEN SATURATION 97.1 % (94-97); ABG PCO2 (T) 31.8 mmHg (32.0-45.0); ABG PO2 (T) 109.5 mmHg (75.0-100.0); ALLEN'S TEST Modified; FCOHb 0.3 % (0.0-3.9); FMetHb 0.1 % (0.0-1.5); FO2Hb 96.7 % (94-97); PATIENT TEMPERATURE 37.8; PEEP 8 cm H2O
[2021-12-26 03:26] LABS: ALANINE AMINOTRANSFERASE 18 U/L (12-78); ALBUMIN 2.8 G/DL (3.4-5.0); ALBUMIN/GLOBULIN RATIO 1.1 (1.1-1.5); ALKALINE PHOSPHATASE 45 IU/L (46-116); ANION GAP 18 (8-16); ASPARTATE AMINO TRANSFERASE 13 U/L (10-37); BILIRUBIN,TOTAL 0.4 MG/DL (0.1-1.0); BLOOD UREA NITROGEN 146 MG/DL (7-18); BUN/CREATININE RATIO 47.7 (6.6-38.0); CALCIUM 8.5 MG/DL (8.5-10.1); CHLORIDE 114 MMOL/L (99-107); CREATININE 3.06 MG/DL (0.40-0.90); GLUCOSE 121 MG/DL (70-104); PHOSPHORUS 7.5 MG/DL (2.3-4.5); POTASSIUM 3.2 MMOL/L (3.5-5.1); SODIUM 152 MMOL/L (135-145); TOTAL CARBON DIOXIDE 20.5 MMOL/L (24-32); TOTAL PROTEIN 5.4 G/DL (6.4-8.2); TRIGLYCERIDES 69 MG/DL (20-135); eGFR 15 ML/MIN
[2021-12-26 03:37] LABS: TOTAL CELLS COUNTED 100
[2021-12-26 03:38] LABS: ANISOCYTOSIS 3+; PLATELET ESTIMATE NORMAL; POIKILOCYTOSIS 1+
[2021-12-26 03:39] LABS: HYPOCHROMASIA 1+; LARGE PLATELETS FEW
[2021-12-26] MEDS: potassium Cl 20mEq/100mL bag 100 ML IV PRN (03:48)
[2021-12-26] MEDS: bumetanide 0.25mg/ml 4ml vial IV SCH ×3 (04:06→20:29)
--- NOTE | 2021-12-26 06:00 | NUR ---
Patient in room CICU 2014. I have received report from WILLIAM CAROLINA and had the opportunity to ask questions and assume patient care.
--- NOTE | 2021-12-26 06:58 | NUR ---
Patient in room CICU 2014. I have received report from CAITY Moy and had the opportunity to ask questions and assume patient care.
[2021-12-26] MEDS: ipratropium/albuterol 3ml nebule NEB SCH ×5 (07:09→23:05)
[2021-12-26] MEDS: docusate sodium 100mg/10ml UD cup NG SCH ×2 (08:00→20:00)
[2021-12-26] MEDS: midodrine 5mg tablet NG SCH ×2 (08:00→20:00)
[2021-12-26] MEDS: ARIPIPRAZOLE 10 MG TABLET NG SCH (08:40)
[2021-12-26] MEDS: QUEtiapine 25mg tablet NG SCH ×2 (08:41→20:28)
[2021-12-26] MEDS: loratadine 10mg tablet NG SCH (08:42)
[2021-12-26] MEDS: hydrocortisone sod succ/PF 100mg/2ml inj. IV SCH ×3 (08:45→16:13)
[2021-12-26] MEDS: heparin, porcine 5000 units/ml vial SQ SCH ×2 (08:45→20:28)
[2021-12-26] MEDS: nicotine 14mg patch - 24hr TD SCH (08:48)
[2021-12-26] MEDS: lansoprazole 15mg solutab NG SCH (08:52)
[2021-12-26] MEDS: venlafaxine 37.5mg tablet NG SCH ×2 (08:52→20:00)
[2021-12-26] MEDS: budesonide 0.5mg/2ml UD nebule IH SCH ×2 (10:30→19:16)
[2021-12-26] MEDS: hydrALAZINE 20mg/ml inj. IV PRN (11:05)
--- NOTE | 2021-12-26 12:00 | NUR ---
Informed Dr. Vasquez of pts increase in HR to 150s-160s, Sinus tach, Increase in respirations to 30-40s, temp climbing 38.4, BP elevated systolic 180s/ even after hydralazine given. MD cancelled extubation order and ordered martinez cultures, zosyn and vanco to start and to give 500ml NS bolus, may repeat 500ml bolus x1 if response in decrease in HR in 2hrs.
[2021-12-26] MEDS ORDERED: vancomycin/NS 1 GM ADD-VANTAGE 250 ML IV ONE (12:10)
[2021-12-26] MEDS ORDERED: normal saline 500ml IV soln 500 ML IV ONE ×2 (12:10)
[2021-12-26] MEDS: propofol 1000mg/100ml bottle 100 ML IV SCH ×2 (12:27→23:09)
[2021-12-26 12:29] LABS: CLARITY,URINE CLOUDY (Clear); COLOR,URINE YELLOW (Yellow); GLUCOSE, URINE NEGATIVE (Neg); KETONES,URINE NEGATIVE (Neg); LEUKOCYTE ESTERASE ,URINE SMALL (Neg); NITRITES, URINE NEGATIVE (Neg); OCCULT BLOOD,URINE SMALL (Neg); PH,URINE 5.5 (4.8-8.0); PROTEIN,URINE 30 mg/dl (Neg); UROBILINOGEN,URINE 0.2 E.U/dL (0.2-1.0)
[2021-12-26 12:34] LABS: BACTERIA,URINE NONE SEEN /HPF (Neg); MUCUS STRANDS NONE SEEN /LPF (Neg); RBC,URINE NONE SEEN /HPF (0-2); SQUAMOUS EPITHELIAL CELL,UR NONE SEEN /LPF (FEW); UA COLLECTION TYPE FOLEY CATH
[2021-12-26 12:35] LABS: YEAST MANY /HPF (NEGATIVE)
[2021-12-26] MEDS ORDERED: piperacillin/tazo 3.375gm/50ml 50 ML IV SCH (12:42)
[2021-12-26] MEDS: acetaminophen 325mg/10.15ml oral unit dose solution NG PRN (12:47)
[2021-12-26] MEDS ORDERED: NORMAL SALINE IV SCH (13:35)
[2021-12-26] MEDS ORDERED: FENTANYL IV SCH (13:35)
[2021-12-26] MEDS: fentaNYL 2,500 MCG in Normal Saline 250ml IV soln bag IV SCH (13:55)
[2021-12-26] MEDS: piperacillin/tazo 3.375gm/50ml 50 ML IV SCH (13:58)
[2021-12-26] MEDS: insulin regular, human U-100 3ml vial - multi-dose SQ SCH ×2 (14:12→20:53)
[2021-12-26] MEDS ORDERED: bumetanide 0.25mg/ml 4ml vial IV PRN (16:00)
--- NOTE | 2021-12-26 16:15 | NUR ---
Informed Dr. Vasquez of [facility] [phone]. to place PA line, Dr. Vasquez informed at bedside.
--- NOTE | 2021-12-26 18:14 | NUR ---
Problems reprioritized. Patient report given, questions answered & plan of care reviewed with CAITY Moy.
[2021-12-26] MEDS: Melatonin 3mg tablet NG SCH (20:28)
[2021-12-26] MEDS: insulin glargine (Lantus) pen - multi-dose SQ SCH (20:53)
--- NOTE | 2021-12-26 23:14 | NUR ---
ETT is at 21 at the teeth since yesterday. RT has checked xray and confirms.
[2021-12-27] VITALS (30 sets, daily range): BP systolic 95–171; BP diastolic 52–91
[2021-12-27] MEDS: hydrocortisone sod succ/PF 100mg/2ml inj. IV SCH ×3 (00:21→16:22)
[2021-12-27] MEDS: piperacillin/tazo 3.375gm/50ml 50 ML IV SCH ×2 (00:21→14:57)
[2021-12-27] MEDS: mineral oil/petrolatum ophthal oint EACHEYE SCH ×4 (02:23→20:00)
[2021-12-27] MEDS: insulin regular, human U-100 3ml vial - multi-dose SQ SCH ×4 (02:25→20:40)
[2021-12-27] MEDS ORDERED: tPA-cathflo 2 MG/2 ml IV flush IVF ONE (02:40)
[2021-12-27] MEDS: hydrALAZINE 20mg/ml inj. IV PRN (03:09)
[2021-12-27 03:12] LABS: ABG BASE EXCESS -9.2 mmol/L (-2.0-2.0); ABG HCO3 15.6 mmol/L (22.0-26.0); ABG OXYGEN SATURATION 97.9 % (94-97); ABG PO2 (T) 120.4 mmHg (75.0-100.0); ALLEN'S TEST Modified; FCOHb 0.3 % (0.0-3.9); FMetHb 0.4 % (0.0-1.5); FO2Hb 97.2 % (94-97); PATIENT TEMPERATURE 37.3; PEEP 8 cm H2O; RESPIRATORY RATE 18 b/min; TIDAL VOLUME 375 mL
[2021-12-27] MEDS: bumetanide 0.25mg/ml 4ml vial IV SCH ×3 (04:45→20:24)
--- NOTE | 2021-12-27 06:30 | NUR ---
Patient in room CICU 2014. I have received report from CAITY Moy and had the opportunity to ask questions and assume patient care.
[2021-12-27] MEDS: midodrine 5mg tablet NG SCH ×2 (07:08→20:00)
[2021-12-27] MEDS: docusate sodium 100mg/10ml UD cup NG SCH ×2 (07:08→20:24)
[2021-12-27] MEDS: ipratropium/albuterol 3ml nebule NEB SCH ×5 (07:11→23:04)
[2021-12-27] MEDS: budesonide 0.5mg/2ml UD nebule IH SCH ×2 (07:15→19:36)
[2021-12-27] MEDS: loratadine 10mg tablet NG SCH (07:17)
[2021-12-27] MEDS: ARIPIPRAZOLE 10 MG TABLET NG SCH (07:17)
[2021-12-27] MEDS: QUEtiapine 25mg tablet NG SCH ×2 (07:17→20:24)
[2021-12-27] MEDS: venlafaxine 37.5mg tablet NG SCH ×2 (07:17→20:24)
[2021-12-27] MEDS: heparin, porcine 5000 units/ml vial SQ SCH ×2 (07:18→20:24)
[2021-12-27] MEDS: lansoprazole 15mg solutab NG SCH (07:18)
[2021-12-27] MEDS: nicotine 14mg patch - 24hr TD SCH (07:19)
[2021-12-27] MEDS ORDERED: fentaNYL 50mcg/ml PF inj. 2,500 MCG in normal saline 250ml IV soln 200 ML IV SCH (07:50)
[2021-12-27] MEDS: fentaNYL 2,500 MCG in Normal Saline 250ml IV soln bag IV SCH ×2 (07:56→17:43)
[2021-12-27 08:03] LABS: BASOPHILS # (AUTO) 0.1 X10'3 (0-0.2); BASOPHILS % (AUTO) 0.2 % (0-1); EOSINOPHILS # (AUTO) 0.1 X10'3 (0-0.9); EOSINOPHILS % (AUTO) 0.2 % (0-6); HEMATOCRIT 34.4 % (35.0-45.0); HEMOGLOBIN 11.2 g/dl (12.0-16.0); LYMPHOCYTES # (AUTO) 0.4 X10'3 (1.1-4.8); LYMPHOCYTES % (AUTO) 1.5 % (21-51); MEAN CORPUSCULAR HEMOGLOBIN 27.1 PG (27.0-31.0); MEAN CORPUSCULAR HGB CONC 32.4 g/dL (33.0-36.5); MEAN CORPUSCULAR VOLUME 83.4 FL (78-98); MEAN PLATELET VOLUME 11.4 FL (7.4-10.4); MONOCYTES % (AUTO) 3.5 % (2-12); NEUTROPHILS % (AUTO) 94.6 % (42-75); PLATELET COUNT 404 X10'3 (140-440); RED BLOOD COUNT 4.13 X10'6 (4.20-5.60); RED CELL DISTRIBUTION WIDTH 20.8 % (11.5-14.5)
[2021-12-27 08:06] LABS: WHITE BLOOD COUNT 29.6 X10'3 (4.5-11.0)
[2021-12-27 08:19] LABS: ANION GAP 22 (8-16); BILIRUBIN,TOTAL 0.5 MG/DL (0.1-1.0); BLOOD UREA NITROGEN 149 MG/DL (7-18); BUN/CREATININE RATIO 51.2 (6.6-38.0); CALCIUM 8.6 MG/DL (8.5-10.1); CHLORIDE 118 MMOL/L (99-107); CREATININE 2.91 MG/DL (0.40-0.90); GLUCOSE 156 MG/DL (70-104); MAGNESIUM 1.9 MG/DL (1.5-2.4); PHOSPHORUS 7.5 MG/DL (2.3-4.5); TOTAL CARBON DIOXIDE 16.2 MMOL/L (24-32); TOTAL PROTEIN 5.5 G/DL (6.4-8.2); eGFR 16 ML/MIN
[2021-12-27 08:20] LABS: ALANINE AMINOTRANSFERASE 21 U/L (12-78); ALBUMIN 2.7 G/DL (3.4-5.0); ALKALINE PHOSPHATASE 52 IU/L (46-116); ASPARTATE AMINO TRANSFERASE 25 U/L (10-37)
[2021-12-27 08:22] LABS: SODIUM 156 MMOL/L (135-145)
[2021-12-27 08:23] LABS: ANISOCYTOSIS 3+; PLATELET ESTIMATE NORMAL; POIKILOCYTOSIS 1+; TARGET CELLS FEW; TOTAL CELLS COUNTED 100
[2021-12-27] MEDS ORDERED: NORepinephrine 8mg/ 250ml NS 250 ML IV ONE (08:33)
[2021-12-27] MEDS ORDERED: NORepinephrine inj. 8 MG in dextrose 5%-water 242 ML IV SCH (08:35)
[2021-12-27] MEDS: NORepinephrine 8mg/ 250ml NS 250 ML IV SCH (08:41)
[2021-12-27] MEDS: potassium Cl 20mEq/100mL bag 100 ML IV PRN ×4 (08:57→13:50)
--- NOTE | 2021-12-27 10:51 | NUR ---
At about 0815 the patient's blood pressure dropped to a SBP of 76, upon recycling the blood pressure the SBP was 74. A 250 cc bolus of NS was given with a return SBP of 88. 15 minutes later the SBP dropped yet again into the 70s. Dr Vasquez informed and he stated to start levophed.
--- NOTE | 2021-12-27 12:52 | NUR ---
PA catheter placement with Dr. Vasquez and x2 RN's bedside. Chest xray confirmed placement. Initial CVP shows 7, hold diuretics for now per Dr. Vasquez. Jasvir (patient's SO) informed that the line placement was successful and without complication.
[2021-12-27] MEDS: dexmedetomidin/NS 400mcg/100ml 100 ML IV SCH (14:57)
[2021-12-27] MEDS ORDERED: racepinephrine 11.25mg/0.5ml nebule IH ONE (16:15)
--- NOTE | 2021-12-27 16:26 | NUR ---
Racemic Epi given via svn inline with vent, per Dr. Vasquez due to negative cuff leak. Attempting to extubate at this time. Addendum: 12/27/21 at 1628 by Glenys Toussaint RT Amended: Links added.
--- NOTE | 2021-12-27 17:21 | NUR ---
Patient spontaneous breath trials done by RT, patient passed trials well, however, patient did not have a + air leak when the cuff of the ETT was deflated. RN informed Dr. Vasquez who ordered for patient to have Racepinephrine inhalation treatment. After this patient only had positive air leak via stethoscope to the trachea, it was not audible otherwise. Dr. Vasquez still state to extubate patient. Patient was extubated at 1657 and tolerated well.
[2021-12-27 17:22] LABS: ALBUMIN 2.7 G/DL (3.4-5.0); CALCIUM 8.8 MG/DL (8.5-10.1); CREATININE 2.87 MG/DL (0.40-0.90); GLUCOSE 122 MG/DL (70-104); TOTAL CARBON DIOXIDE 15.5 MMOL/L (24-32); eGFR 17 ML/MIN
[2021-12-27 17:29] LABS: BLOOD UREA NITROGEN 152 MG/DL (7-18)
[2021-12-27 17:31] LABS: SODIUM 152 MMOL/L (135-145)
[2021-12-27 17:32] LABS: ANION GAP 19 (8-16); CHLORIDE 118 MMOL/L (99-107); POTASSIUM 4.3 MMOL/L (3.5-5.1)
--- NOTE | 2021-12-27 18:14 | NUR ---
Problems reprioritized. Patient report given, questions answered & plan of care reviewed with CAITY Moy.
[2021-12-27] MEDS ORDERED: caffeine citrate injection 80 MG in dextrose 5%-water 50ml 50 ML IV ONE (19:00)
[2021-12-27] MEDS: Melatonin 3mg tablet NG SCH (20:24)
[2021-12-27] MEDS: insulin glargine (Lantus) pen - multi-dose SQ SCH (20:41)
[2021-12-28] VITALS (25 sets, daily range): BP systolic 122–172; BP diastolic 64–91
[2021-12-28] MEDS: piperacillin/tazo 3.375gm/50ml 50 ML IV SCH ×2 (01:29→13:38)
[2021-12-28] MEDS: hydrocortisone sod succ/PF 100mg/2ml inj. IV SCH (01:29)
[2021-12-28] MEDS: mineral oil/petrolatum ophthal oint EACHEYE SCH (02:00)
[2021-12-28] MEDS: NORepinephrine 8mg/ 250ml NS 250 ML IV SCH (02:52)
[2021-12-28 03:31] LABS: ALANINE AMINOTRANSFERASE 23 U/L (12-78); ALBUMIN 2.7 G/DL (3.4-5.0); ALBUMIN/GLOBULIN RATIO 0.9 (1.1-1.5); ALKALINE PHOSPHATASE 47 IU/L (46-116); ANION GAP 20 (8-16); ASPARTATE AMINO TRANSFERASE 23 U/L (10-37); BILIRUBIN,TOTAL 0.5 MG/DL (0.1-1.0); CALCIUM 8.7 MG/DL (8.5-10.1); CHLORIDE 118 MMOL/L (99-107); CREATININE 2.83 MG/DL (0.40-0.90); GLUCOSE 122 MG/DL (70-104); PHOSPHORUS 7.4 MG/DL (2.3-4.5); POTASSIUM 3.5 MMOL/L (3.5-5.1); TOTAL CARBON DIOXIDE 17.5 MMOL/L (24-32); TOTAL PROTEIN 5.6 G/DL (6.4-8.2); TRIGLYCERIDES 113 MG/DL (20-135); eGFR 17 ML/MIN
[2021-12-28 03:48] LABS: BLOOD UREA NITROGEN 164 MG/DL (7-18)
[2021-12-28 03:50] LABS: SODIUM 155 MMOL/L (135-145)
[2021-12-28] MEDS: bumetanide 0.25mg/ml 4ml vial IV SCH ×3 (04:00→20:00)
[2021-12-28] MEDS ORDERED: dextrose 5%-water 1,000 ML IV SCH (04:10)
[2021-12-28] MEDS: dexmedetomidin/NS 400mcg/100ml 100 ML IV SCH ×2 (05:03→19:41)
--- NOTE | 2021-12-28 06:20 | NUR ---
Problems reprioritized. Patient report given, questions answered & plan of care reviewed with Mane CAROLINA.
[2021-12-28 06:51] LABS: BASOPHILS % (AUTO) 0.1 % (0-1); EOSINOPHILS # (AUTO) 0.3 X10'3 (0-0.9); EOSINOPHILS % (AUTO) 1.1 % (0-6); HEMATOCRIT 33.5 % (35.0-45.0); HEMOGLOBIN 10.7 g/dl (12.0-16.0); LYMPHOCYTES # (AUTO) 0.8 X10'3 (1.1-4.8); LYMPHOCYTES % (AUTO) 2.7 % (21-51); MEAN CORPUSCULAR HEMOGLOBIN 26.8 PG (27.0-31.0); MEAN CORPUSCULAR VOLUME 83.7 FL (78-98); MEAN PLATELET VOLUME 11.1 FL (7.4-10.4); MONOCYTES # (AUTO) 1.4 X10'3 (0-0.9); MONOCYTES % (AUTO) 4.8 % (2-12); NEUTROPHILS % (AUTO) 91.3 % (42-75); PLATELET COUNT 318 X10'3 (140-440); RED CELL DISTRIBUTION WIDTH 20.4 % (11.5-14.5)
[2021-12-28 06:59] LABS: WHITE BLOOD COUNT 28.5 X10'3 (4.5-11.0)
[2021-12-28] MEDS: midodrine 5mg tablet NG SCH ×2 (07:10→20:18)
[2021-12-28 07:21] LABS: TOTAL CELLS COUNTED 100
[2021-12-28 07:23] LABS: ANISOCYTOSIS 3+; HYPOCHROMASIA 1+; PLATELET ESTIMATE NORMAL
[2021-12-28 07:24] LABS: ACANTHOCYTES 1+; BURR CELLS 1+; ELLIPTOCYTES FEW; SCHISTOCYTES FEW; TARGET CELLS FEW; TEAR DROP CELLS 1+
[2021-12-28] MEDS: budesonide 0.5mg/2ml UD nebule IH SCH ×2 (07:35→18:56)
[2021-12-28] MEDS: ipratropium 0.5 MG/2.5ML nebule IH SCH ×5 (07:35→22:06)
--- NOTE | 2021-12-28 07:43 | NUR ---
Reassessment; Pt was extubated on 12/27 and continues on TF, which is running at goal per documentation. Communicated w/ RN recommendation to increase rate to 55ml/hr given pt extubated and now off propofol. Serum Na remains elevated at 155 this AM, pt now receiving D5 at 60ml/hr providing 245kcals per day. Per RN, MD is okay with water flushes, recommend 200ml Q4H and will adjust as appropriate. Recommend BSS for diet advancement when pt appropriate and continuing w/ TF until pt can consistently consume at least half of meals. LBM 12/26 receiving routine colace. Will continue to monitor. Recommendations: 1. Continuous TF using Vital AF with 55 ml/hr goal; to provide 1320 ml volume/day, 1584 kcal, 1071 ml water, and 99 g protein. 3. Additional water 200 Q4H if MD agreeable; monitor serum Na 4. PALB q Wednesday/ 5. Daily scaled weights 6. Routine bowel care 7. Advance to regular diet as medically indicated following extubation; consider BSS with ST given prolonged intubation Addendum: 12/28/21 at [address] Amended: Links added.
[2021-12-28] MEDS ORDERED: racepinephrine 11.25mg/0.5ml nebule IH SCH ×2 (08:00→15:00)
[2021-12-28] MEDS: docusate sodium 100mg/10ml UD cup NG SCH ×2 (08:00→20:18)
[2021-12-28] MEDS: dextrose 5%-1/2 normal saline 1,000 ML IV SCH ×2 (08:30→18:25)
[2021-12-28] MEDS: heparin, porcine 5000 units/ml vial SQ SCH ×2 (08:31→20:19)
[2021-12-28] MEDS: nicotine 14mg patch - 24hr TD SCH (08:32)
[2021-12-28] MEDS: ARIPIPRAZOLE 10 MG TABLET NG SCH (08:33)
[2021-12-28] MEDS: venlafaxine 37.5mg tablet NG SCH ×2 (08:33→20:18)
[2021-12-28] MEDS: QUEtiapine 25mg tablet NG SCH ×2 (08:34→20:18)
[2021-12-28] MEDS: loratadine 10mg tablet NG SCH (08:34)
[2021-12-28] MEDS: lansoprazole 15mg solutab NG SCH (08:34)
[2021-12-28] MEDS: metoprolol tartrate 1mg/ml inj IV SCH ×2 (08:36→09:55)
[2021-12-28] MEDS: methylPREDNISolone sod succ 125mg/2ml vial IV SCH ×3 (08:49→23:14)
[2021-12-28] MEDS: insulin regular, human U-100 3ml vial - multi-dose SQ SCH ×3 (08:55→20:44)
[2021-12-28] MEDS ORDERED: sodium chloride 0.45% 1,000 ML IV ONE (10:05)
--- NOTE | 2021-12-28 10:44 | NUR ---
0800- Dr Christina owen- Reported AM bumex held, continue IV caffeine order, increase diet as tolerated after BSS, repeat CI later in day and then contact MD for orders to james hillman, metoprolol 2.5 mg x2 20 minutes apart, change IVF to D51/2 @ 100 for sodium of 155, wedge PA (result 6), Na check q 4hour, racemic epi and atrovent, dc hydrocortisone, change to solumedrol 80mg q 8. 0900- Per riveter hand increase tube feed rate to 55 now that propofol is off. 1000- Dr Christina owen, cecilia to advance diet after BSS, 1/2 NS 1000 cc bolus over 2 hours.
--- NOTE | 2021-12-28 14:12 | NUR ---
1400- call to Dr Vasquez to report CI of 5, ok to james hillman, obtain wedge for record (23 after bolus).
[2021-12-28] MEDS ORDERED: caffeine citrate injection 80 MG in dextrose 5%-water 50ml 50 ML IV ONE (16:00)
[2021-12-28] MEDS ORDERED: bumetanide 0.25mg/ml 4ml vial IV ONE (17:55)
[2021-12-28] MEDS ORDERED: bumetanide 0.25mg/ml 4ml vial IV STA (18:10)
[2021-12-28 18:55] LABS: ABG BASE EXCESS -11.2 mmol/L (-2.0-2.0); ABG HCO3 14.1 mmol/L (22.0-26.0); ABG OXYGEN SATURATION 98.3 % (94-97); ABG PCO2 (T) 30.2 mmHg (32.0-45.0); ABG PO2 (T) 151.2 mmHg (75.0-100.0); ALLEN'S TEST POSITIVE; FCOHb 0.3 % (0.0-3.9); FMetHb 0.4 % (0.0-1.5); FO2Hb 97.6 % (94-97); PATIENT TEMPERATURE 37.3; RESPIRATORY RATE 10 b/min; TIDAL VOLUME 530 mL; TOTAL HEMOGLOBIN 11.3 G/dl (12.0-16.0)
[2021-12-28] MEDS ORDERED: sodium bicarbonate (8.4%) 1 mEq/ml syringe IV ONE ×2 (19:15→23:00)
[2021-12-28] MEDS: Melatonin 3mg tablet NG SCH (20:18)
[2021-12-28] MEDS ORDERED: albuterol 2.5 MG/3 ML nebule NEB PRN (20:35)
[2021-12-28] MEDS: insulin glargine (Lantus) pen - multi-dose SQ SCH (20:45)
[2021-12-29] VITALS (24 sets, daily range): BP systolic 124–153; BP diastolic 62–87
[2021-12-29] MEDS: piperacillin/tazo 3.375gm/50ml 50 ML IV SCH ×2 (01:18→13:08)
[2021-12-29] MEDS: insulin regular, human U-100 3ml vial - multi-dose SQ SCH ×3 (02:52→13:13)
[2021-12-29] MEDS: ipratropium 0.5 MG/2.5ML nebule IH SCH ×6 (03:05→23:10)
[2021-12-29] MEDS: dextrose 5%-1/2 normal saline 1,000 ML IV SCH (03:55)
[2021-12-29] MEDS: bumetanide 0.25mg/ml 4ml vial IV SCH (04:14)
[2021-12-29 06:41] LABS: BASOPHILS % (AUTO) 0.2 % (0-1); EOSINOPHILS % (AUTO) 0 % (0-6); HEMATOCRIT 31.3 % (35.0-45.0); HEMOGLOBIN 10.2 g/dl (12.0-16.0); LYMPHOCYTES # (AUTO) 0.3 X10'3 (1.1-4.8); LYMPHOCYTES % (AUTO) 1.4 % (21-51); MEAN CORPUSCULAR HEMOGLOBIN 27.1 PG (27.0-31.0); MEAN CORPUSCULAR HGB CONC 32.6 g/dL (33.0-36.5); MEAN CORPUSCULAR VOLUME 83.3 FL (78-98); MEAN PLATELET VOLUME 10.9 FL (7.4-10.4); MONOCYTES # (AUTO) 0.6 X10'3 (0-0.9); MONOCYTES % (AUTO) 2.8 % (2-12); NEUTROPHILS # (AUTO) 21.4 X10'3 (1.8-7.7); NEUTROPHILS % (AUTO) 95.6 % (42-75); PLATELET COUNT 225 X10'3 (140-440); RED BLOOD COUNT 3.76 X10'6 (4.20-5.60); RED CELL DISTRIBUTION WIDTH 21.2 % (11.5-14.5); WHITE BLOOD COUNT 22.4 X10'3 (4.5-11.0)
[2021-12-29 07:26] LABS: ANION GAP 19 (8-16); CHLORIDE 116 MMOL/L (99-107); CREATININE 2.72 MG/DL (0.40-0.90); GLUCOSE 187 MG/DL (70-104); POTASSIUM 3.1 MMOL/L (3.5-5.1); SODIUM 153 MMOL/L (135-145); TOTAL CARBON DIOXIDE 18.3 MMOL/L (24-32)
[2021-12-29 07:27] LABS: ALANINE AMINOTRANSFERASE 26 U/L (12-78); ALBUMIN 2.4 G/DL (3.4-5.0); ALBUMIN/GLOBULIN RATIO 0.8 (1.1-1.5); ALKALINE PHOSPHATASE 47 IU/L (46-116); ASPARTATE AMINO TRANSFERASE 20 U/L (10-37); BILIRUBIN,TOTAL 0.5 MG/DL (0.1-1.0); CALCIUM 8.1 MG/DL (8.5-10.1); MAGNESIUM 1.7 MG/DL (1.5-2.4); PHOSPHORUS 7.3 MG/DL (2.3-4.5); PREALBUMIN 36.9 MG/DL (19-36); TOTAL PROTEIN 5.3 G/DL (6.4-8.2); eGFR 18 ML/MIN
[2021-12-29] MEDS: budesonide 0.5mg/2ml UD nebule IH SCH ×2 (07:36→23:10)
[2021-12-29 07:39] LABS: BLOOD UREA NITROGEN 146 MG/DL (7-18); BUN/CREATININE RATIO 53.7 (6.6-38.0)
[2021-12-29] MEDS: midodrine 5mg tablet NG SCH ×2 (08:00→20:35)
[2021-12-29] MEDS: docusate sodium 100mg/10ml UD cup NG SCH ×2 (08:00→14:50)
[2021-12-29 08:42] LABS: LARGE PLATELETS FEW; PLATELET ESTIMATE NORMAL
[2021-12-29 08:44] LABS: ANISOCYTOSIS 3+; ELLIPTOCYTES 1+; POIKILOCYTOSIS 2+; SCHISTOCYTES FEW; TARGET CELLS FEW
[2021-12-29] MEDS: methylPREDNISolone sod succ 125mg/2ml vial IV SCH ×3 (08:53→22:13)
[2021-12-29] MEDS: heparin, porcine 5000 units/ml vial SQ SCH ×2 (08:53→20:35)
[2021-12-29] MEDS: ARIPIPRAZOLE 10 MG TABLET NG SCH (08:54)
[2021-12-29] MEDS: POTASSIUM BICARB 20meq eff tab 20 MEQ TABLET.EFF NG PRN ×3 (08:54→16:07)
[2021-12-29] MEDS: venlafaxine 37.5mg tablet NG SCH ×2 (08:54→20:32)
[2021-12-29] MEDS: lansoprazole 15mg solutab NG SCH (08:54)
[2021-12-29] MEDS: loratadine 10mg tablet NG SCH (08:55)
[2021-12-29] MEDS: QUEtiapine 25mg tablet NG SCH ×2 (08:55→20:35)
[2021-12-29] MEDS: nicotine 14mg patch - 24hr TD SCH (08:55)
[2021-12-29] MEDS: dextrose 5%-water 1,000 ML IV SCH ×2 (10:21→20:08)
[2021-12-29] MEDS: fluconazole-Diflucan 100MG/NS 50 ML IV SCH (11:18)
--- NOTE | 2021-12-29 11:46 | NUR ---
F/u 12/29: Pt advanced to pureed/thin diet per PLYWOOD PATCHER pending first PO. NGTF currently running at 55ml/hr using Vital HP per RN at rounds; not RD recs RD notified RN and MD of updated EN recs below given pt now receiving D5W at 100ml/hr providing 408 kcals/day. Recommendations: 1. Given D5W at 100ml/hr providing 408 kcals/day; continuous TF using Vital HP at 50ml/hr goal; to provide 1200ml volume/day, 1200 kcal, 1003ml water, and 105g protein. 2. continue pureed/thin diet per PLYWOOD PATCHER/MD recs; monitor for PO acceptance and EN adjustment needs 3. Additional water 200 Q4H; monitor serum Na 4. PALB q Wednesday/ 5. Daily scaled weights 6. Routine bowel care Addendum: 12/29/21 at [address] Amended: Links added.
[2021-12-29] MEDS: nystatin 15 GM powder TP SCH ×2 (13:08→20:36)
--- NOTE | 2021-12-29 18:30 | NUR ---
Report received from day shift RN. Pt A&Ox3 disoriented to place, ST, tachypneic, SpO2 99% on 2L via NC, denies pain, D5W running @ 100mL/hr, Vital HP @50mL/hr, rectal tube and torres in place. Pt bed locked/ low, call light within reach, pillows in place to off-load monik prominences. Pt denies any needs at this time, safety maintained. Hourly rounding initiated.
[2021-12-29] MEDS: Melatonin 3mg tablet NG SCH (20:35)
[2021-12-29] MEDS: insulin glargine (Lantus) pen - multi-dose SQ SCH (20:54)
[2021-12-30] VITALS (22 sets, daily range): BP systolic 123–164; BP diastolic 56–86
[2021-12-30] MEDS: piperacillin/tazo 3.375gm/50ml 50 ML IV SCH ×2 (01:27→13:47)
[2021-12-30] MEDS: ipratropium 0.5 MG/2.5ML nebule IH SCH ×6 (03:27→22:44)
[2021-12-30 04:05] LABS: BASOPHILS % (AUTO) 0.1 % (0-1); EOSINOPHILS % (AUTO) 0 % (0-6); HEMATOCRIT 27.4 % (35.0-45.0); HEMOGLOBIN 8.7 g/dl (12.0-16.0); LYMPHOCYTES # (AUTO) 0.2 X10'3 (1.1-4.8); LYMPHOCYTES % (AUTO) 1.1 % (21-51); MEAN CORPUSCULAR HEMOGLOBIN 26.7 PG (27.0-31.0); MEAN CORPUSCULAR HGB CONC 31.9 g/dL (33.0-36.5); MEAN CORPUSCULAR VOLUME 83.9 FL (78-98); MEAN PLATELET VOLUME 11.2 FL (7.4-10.4); MONOCYTES # (AUTO) 0.3 X10'3 (0-0.9); MONOCYTES % (AUTO) 1.5 % (2-12); NEUTROPHILS % (AUTO) 97.3 % (42-75); PLATELET COUNT 178 X10'3 (140-440); RED BLOOD COUNT 3.27 X10'6 (4.20-5.60); RED CELL DISTRIBUTION WIDTH 21.1 % (11.5-14.5); WHITE BLOOD COUNT 20.6 X10'3 (4.5-11.0)
[2021-12-30 04:10] LABS: ALANINE AMINOTRANSFERASE 24 U/L (12-78); ALBUMIN 2.2 G/DL (3.4-5.0); ALBUMIN/GLOBULIN RATIO 0.8 (1.1-1.5); ALKALINE PHOSPHATASE 43 IU/L (46-116); ANION GAP 17 (8-16); ASPARTATE AMINO TRANSFERASE 18 U/L (10-37); BILIRUBIN,TOTAL 0.4 MG/DL (0.1-1.0); CHLORIDE 109 MMOL/L (99-107); CREATININE 2.53 MG/DL (0.40-0.90); GLUCOSE 157 MG/DL (70-104); MAGNESIUM 1.5 MG/DL (1.5-2.4); PHOSPHORUS 7.2 MG/DL (2.3-4.5); POTASSIUM 3.5 MMOL/L (3.5-5.1); SODIUM 145 MMOL/L (135-145); TOTAL CARBON DIOXIDE 19.2 MMOL/L (24-32); TOTAL PROTEIN 4.9 G/DL (6.4-8.2); eGFR 19 ML/MIN
[2021-12-30 04:12] LABS: BLOOD UREA NITROGEN 151 MG/DL (7-18); BUN/CREATININE RATIO 59.7 (6.6-38.0)
--- NOTE | 2021-12-30 06:13 | NUR ---
Report given to CAITY Beltran. All pertinent medical information discussed and questions answered. Pt resting comfortably in bed, VSS, in no apparent distress, all needs met at this time, safety maintained.
[2021-12-30] MEDS: dextrose 5%-water 1,000 ML IV SCH ×2 (06:15→16:15)
[2021-12-30] MEDS: budesonide 0.5mg/2ml UD nebule IH SCH ×2 (07:10→19:22)
[2021-12-30] MEDS: fluconazole-Diflucan 100MG/NS 50 ML IV SCH (07:38)
[2021-12-30] MEDS: methylPREDNISolone sod succ 125mg/2ml vial IV SCH ×3 (07:39→23:00)
[2021-12-30] MEDS: ARIPIPRAZOLE 10 MG TABLET NG SCH (07:39)
[2021-12-30] MEDS: loratadine 10mg tablet NG SCH (07:39)
[2021-12-30] MEDS: venlafaxine 37.5mg tablet NG SCH ×2 (07:39→20:37)
[2021-12-30] MEDS: docusate sodium 100mg/10ml UD cup NG SCH ×2 (07:39→20:37)
[2021-12-30] MEDS: lansoprazole 15mg solutab NG SCH (07:39)
[2021-12-30] MEDS: QUEtiapine 25mg tablet NG SCH ×2 (07:39→20:38)
[2021-12-30] MEDS: nicotine 14mg patch - 24hr TD SCH (07:39)
[2021-12-30] MEDS: nystatin 15 GM powder TP SCH ×3 (07:40→21:07)
[2021-12-30] MEDS: heparin, porcine 5000 units/ml vial SQ SCH ×2 (07:40→20:37)
[2021-12-30] MEDS: midodrine 5mg tablet NG SCH ×2 (07:40→20:00)
[2021-12-30] MEDS ORDERED: bumetanide 0.25mg/ml 4ml vial IV SCH (08:30)
[2021-12-30 08:53] LABS: ABG BASE EXCESS -8.9 mmol/L (-2.0-2.0); ABG OXYGEN SATURATION 95.2 % (94-97); ABG PO2 (T) 81.2 mmHg (75.0-100.0); ALLEN'S TEST POSITIVE; FCOHb 0.3 % (0.0-3.9); FLOW 1 L/min; FMetHb 0.2 % (0.0-1.5); FO2Hb 94.7 % (94-97); PATIENT TEMPERATURE 36.9; TOTAL HEMOGLOBIN 10.7 G/dl (12.0-16.0)
[2021-12-30] MEDS: hydrALAZINE 20mg/ml inj. IV PRN (17:24)
[2021-12-30] MEDS: Melatonin 3mg tablet NG SCH (20:37)
[2021-12-30] MEDS: acetaminophen 325mg/10.15ml oral unit dose solution NG PRN (20:41)
[2021-12-30] MEDS: insulin regular, human U-100 3ml vial - multi-dose SQ SCH (20:49)
[2021-12-30] MEDS: insulin glargine (Lantus) pen - multi-dose SQ SCH (20:51)
[2021-12-31] VITALS (24 sets, daily range): BP systolic 131–171; BP diastolic 64–91
[2021-12-31] MEDS: piperacillin/tazo 3.375gm/50ml 50 ML IV SCH ×2 (01:28→13:00)
[2021-12-31] MEDS: dextrose 5%-water 1,000 ML IV SCH (02:15)
[2021-12-31] MEDS: ipratropium 0.5 MG/2.5ML nebule IH SCH ×2 (02:58→07:41)
[2021-12-31] MEDS: insulin regular, human U-100 3ml vial - multi-dose SQ SCH ×3 (03:27→15:08)
[2021-12-31 03:36] LABS: BASOPHILS # (AUTO) 0.1 X10'3 (0-0.2); BASOPHILS % (AUTO) 0.3 % (0-1); EOSINOPHILS % (AUTO) 0 % (0-6); HEMATOCRIT 28.9 % (35.0-45.0); HEMOGLOBIN 9.5 g/dl (12.0-16.0); LYMPHOCYTES # (AUTO) 0.3 X10'3 (1.1-4.8); LYMPHOCYTES % (AUTO) 1.2 % (21-51); MEAN CORPUSCULAR HEMOGLOBIN 27.6 PG (27.0-31.0); MEAN CORPUSCULAR VOLUME 83.7 FL (78-98); MEAN PLATELET VOLUME 11.1 FL (7.4-10.4); MONOCYTES # (AUTO) 0.9 X10'3 (0-0.9); NEUTROPHILS # (AUTO) 20.8 X10'3 (1.8-7.7); NEUTROPHILS % (AUTO) 94.5 % (42-75); PLATELET COUNT 172 X10'3 (140-440); RED BLOOD COUNT 3.45 X10'6 (4.20-5.60); RED CELL DISTRIBUTION WIDTH 21.1 % (11.5-14.5)
[2021-12-31 03:53] LABS: ALANINE AMINOTRANSFERASE 29 U/L (12-78); ALBUMIN 2.3 G/DL (3.4-5.0); ALBUMIN/GLOBULIN RATIO 0.8 (1.1-1.5); ALKALINE PHOSPHATASE 54 IU/L (46-116); ANION GAP 20 (8-16); ASPARTATE AMINO TRANSFERASE 15 U/L (10-37); BILIRUBIN,TOTAL 0.3 MG/DL (0.1-1.0); CHLORIDE 110 MMOL/L (99-107); CREATININE 2.65 MG/DL (0.40-0.90); GLUCOSE 111 MG/DL (70-104); MAGNESIUM 1.6 MG/DL (1.5-2.4); PHOSPHORUS 8.2 MG/DL (2.3-4.5); POTASSIUM 3.3 MMOL/L (3.5-5.1); SODIUM 149 MMOL/L (135-145); TOTAL PROTEIN 5.2 G/DL (6.4-8.2); eGFR 18 ML/MIN
[2021-12-31 04:10] LABS: BLOOD UREA NITROGEN 169 MG/DL (7-18); BUN/CREATININE RATIO 63.8 (6.6-38.0)
[2021-12-31 04:13] LABS: TOTAL CELLS COUNTED 100
[2021-12-31 04:14] LABS: ANISOCYTOSIS 3+; ELLIPTOCYTES 1+; LARGE PLATELETS FEW; PLATELET ESTIMATE NORMAL; SCHISTOCYTES 1+
[2021-12-31] MEDS: hydrALAZINE 20mg/ml inj. IV PRN (04:17)
[2021-12-31] MEDS: potassium Cl 20mEq/100mL bag 100 ML IV PRN (06:26)
--- NOTE | 2021-12-31 07:26 | NUR ---
Patient in room CICU 2009. I have received report from Mac RN and had the opportunity to ask questions and assume patient care.
[2021-12-31] MEDS: budesonide 0.5mg/2ml UD nebule IH SCH ×2 (07:41→20:08)
[2021-12-31] MEDS: nicotine 14mg patch - 24hr TD SCH (08:00)
[2021-12-31] MEDS: midodrine 5mg tablet NG SCH ×2 (08:00→20:00)
[2021-12-31] MEDS ORDERED: bumetanide 0.25mg/ml 4ml vial IV SCH (08:00)
[2021-12-31] MEDS: docusate sodium 100mg/10ml UD cup NG SCH (08:00)
--- NOTE | 2021-12-31 08:52 | NUR ---
Dr. Virgen informed that pt is sinus tachycardic 120s-130s. MD viewed chest xray results and change bumex order to 2mg daily.
[2021-12-31] MEDS: methylPREDNISolone sod succ 125mg/2ml vial IV SCH ×2 (09:01→20:43)
[2021-12-31] MEDS: venlafaxine 37.5mg tablet NG SCH ×2 (09:08→20:43)
[2021-12-31] MEDS: lansoprazole 15mg solutab NG SCH (09:09)
[2021-12-31] MEDS: oxyCODONE/APAP 10/325mg tablet NG PRN ×2 (09:10→17:25)
[2021-12-31] MEDS: ARIPIPRAZOLE 10 MG TABLET NG SCH (09:11)
[2021-12-31] MEDS: loratadine 10mg tablet NG SCH (09:11)
[2021-12-31] MEDS: QUEtiapine 25mg tablet NG SCH ×2 (09:12→20:44)
[2021-12-31] MEDS: heparin, porcine 5000 units/ml vial SQ SCH ×2 (09:25→20:45)
[2021-12-31] MEDS: nystatin 15 GM powder TP SCH ×3 (09:47→20:46)
[2021-12-31] MEDS: fluconazole-Diflucan 100MG/NS 50 ML IV SCH (09:47)
[2021-12-31] MEDS: bumetanide 0.25mg/ml 4ml vial IV SCH (09:56)
[2021-12-31] MEDS: diatr meglu/diatrizoate 30ml oral sol.-(3 dose) bottle PO SCH ×3 (11:25→16:24)
--- NOTE | 2021-12-31 17:30 | NUR ---
Dr. Virgen informed of vascular US results. No new orders at this time.
--- NOTE | 2021-12-31 18:15 | NUR ---
Problems reprioritized. Patient report given, questions answered & plan of care reviewed with Page CAROLINA.
--- NOTE | 2021-12-31 18:20 | NUR ---
Patient in room CICU 2009. I have received report from Ursula CAROLINA and had the opportunity to ask questions and assume patient care.
[2021-12-31] MEDS: Melatonin 3mg tablet NG SCH (20:44)
[2021-12-31] MEDS: insulin glargine (Lantus) pen - multi-dose SQ SCH (20:45)
--- NOTE | 2021-12-31 22:00 | NUR ---
DR ALMEIDA at bedside, reviewed printed results of CT and okayed restarting tube feed at 50ml/hr
[2022-01-01] VITALS (24 sets, daily range): BP systolic 135–173; BP diastolic 63–96
[2022-01-01] MEDS: piperacillin/tazo 3.375gm/50ml 50 ML IV SCH ×2 (00:28→12:58)
[2022-01-01 02:29] LABS: BASOPHILS # (AUTO) 0.1 X10'3 (0-0.2); BASOPHILS % (AUTO) 0.2 % (0-1); EOSINOPHILS % (AUTO) 0 % (0-6); HEMATOCRIT 31.7 % (35.0-45.0); HEMOGLOBIN 10.2 g/dl (12.0-16.0); LYMPHOCYTES # (AUTO) 0.3 X10'3 (1.1-4.8); LYMPHOCYTES % (AUTO) 1.2 % (21-51); MEAN CORPUSCULAR HEMOGLOBIN 27.3 PG (27.0-31.0); MEAN CORPUSCULAR HGB CONC 32.2 g/dL (33.0-36.5); MEAN CORPUSCULAR VOLUME 84.8 FL (78-98); MEAN PLATELET VOLUME 11.6 FL (7.4-10.4); MONOCYTES # (AUTO) 0.7 X10'3 (0-0.9); MONOCYTES % (AUTO) 2.9 % (2-12); NEUTROPHILS # (AUTO) 23.7 X10'3 (1.8-7.7); NEUTROPHILS % (AUTO) 95.7 % (42-75); PLATELET COUNT 183 X10'3 (140-440); RED BLOOD COUNT 3.73 X10'6 (4.20-5.60); WHITE BLOOD COUNT 24.7 X10'3 (4.5-11.0)
[2022-01-01 02:43] LABS: ALANINE AMINOTRANSFERASE 32 U/L (12-78); ALBUMIN 2.6 G/DL (3.4-5.0); ALBUMIN/GLOBULIN RATIO 0.9 (1.1-1.5); ALKALINE PHOSPHATASE 54 IU/L (46-116); ANION GAP 19 (8-16); ASPARTATE AMINO TRANSFERASE 18 U/L (10-37); BILIRUBIN,TOTAL 0.4 MG/DL (0.1-1.0); CHLORIDE 109 MMOL/L (99-107); CREATININE 2.63 MG/DL (0.40-0.90); GLUCOSE 135 MG/DL (70-104); POTASSIUM 3.6 MMOL/L (3.5-5.1); PREALBUMIN 49.3 MG/DL (19-36); SODIUM 146 MMOL/L (135-145); TOTAL CARBON DIOXIDE 17.8 MMOL/L (24-32); TOTAL PROTEIN 5.6 G/DL (6.4-8.2); eGFR 18 ML/MIN
[2022-01-01 03:05] LABS: CALCIUM 8.5 MG/DL (8.5-10.1)
[2022-01-01 03:06] LABS: BLOOD UREA NITROGEN 158 MG/DL (7-18); BUN/CREATININE RATIO 60.1 (6.6-38.0)
[2022-01-01 03:23] LABS: PLATELET ESTIMATE NORMAL
[2022-01-01 03:24] LABS: ANISOCYTOSIS 3+; ELLIPTOCYTES 1+; GIANT PLATELET FEW; LARGE PLATELETS FEW; SCHISTOCYTES 1+
[2022-01-01] MEDS: oxyCODONE/APAP 10/325mg tablet NG PRN ×2 (03:24→10:58)
--- NOTE | 2022-01-01 06:15 | NUR ---
Problems reprioritized. Patient report given to Ursula CAROLINA and Page RN, questions answered & plan of care reviewed with .
--- NOTE | 2022-01-01 06:42 | NUR ---
Patient in room CICU 2009. I have received report from Page CAROLINA and had the opportunity to ask questions and assume patient care.
[2022-01-01] MEDS: budesonide 0.5mg/2ml UD nebule IH SCH ×2 (07:13→19:38)
[2022-01-01] MEDS: midodrine 5mg tablet NG SCH ×2 (07:21→19:05)
[2022-01-01] MEDS: methylPREDNISolone sod succ 125mg/2ml vial IV SCH ×2 (07:36→19:50)
[2022-01-01] MEDS: bumetanide 0.25mg/ml 4ml vial IV SCH (07:39)
[2022-01-01] MEDS: heparin, porcine 5000 units/ml vial SQ SCH ×2 (07:40→19:51)
[2022-01-01] MEDS: venlafaxine 37.5mg tablet NG SCH ×2 (07:51→19:51)
[2022-01-01] MEDS: loratadine 10mg tablet NG SCH (07:51)
[2022-01-01] MEDS: nicotine 14mg patch - 24hr TD SCH (07:51)
[2022-01-01] MEDS: ARIPIPRAZOLE 10 MG TABLET NG SCH (07:51)
[2022-01-01] MEDS: lansoprazole 15mg solutab NG SCH (07:52)
[2022-01-01] MEDS: nystatin 15 GM powder TP SCH ×3 (07:52→21:00)
[2022-01-01] MEDS: QUEtiapine 25mg tablet NG SCH ×2 (07:52→19:51)
[2022-01-01] MEDS: fluconazole-Diflucan 100MG/NS 50 ML IV SCH (08:05)
--- NOTE | 2022-01-01 11:00 | NUR ---
TF consult: Pt continues on pureed diet with thin liquids though PO intake appears to be declining, down to 0-25% PO intake 12/31 with just a few bites of breakfast this morning per RN. MD agrees to trial switching to nocturnal TF in hopes of improving appetite and optimizing PO intake, see updated recommendations below. Pt seen at bedside, agrees to Ensure with meals as well as a chocolate shake, d/w RN, MD, and dietary. LBM 12/31 with 700 mL stool output per I&O. Routine bowel care discontinued 12/31. Will continue to follow closely and make recommendations as appropriate. Recommendations: 1. Nocturnal TF per MD using Vital AF with 85 mL/hr goal from 3594-5457; to provide 1020 mL volume/day, 1224 kcal, 77 g protein, and 827 mL water. Will meet 93% minimum EEN and 97% EPN 2. Continue pureed diet with thin liquids per ST rec; monitor for PO acceptance and EN adjustment needs 3. Ensure Enlive TID; chocolate shake BIDLD 4. Additional water 200 Q4H; monitor serum Na 5. PALB q Wednesday/ 6. Daily scaled weights 7. Continue with TF until appetite and PO intake improves 8. Bowel care PRN Addendum: 01/01/22 at [address] Amended: Links added.
[2022-01-01] MEDS: lactose-reduced food (Ensure Enlive) - 237ml bottle NG SCH ×2 (13:00→18:06)
--- NOTE | 2022-01-01 18:23 | NUR ---
Problems reprioritized. Patient report given, questions answered & plan of care reviewed with Sheldon RN.
[2022-01-01] MEDS: acetaminophen 325mg/10.15ml oral unit dose solution NG PRN (19:51)
[2022-01-01] MEDS: Melatonin 3mg tablet NG SCH (20:01)
[2022-01-01] MEDS: insulin glargine (Lantus) pen - multi-dose SQ SCH (21:00)
[2022-01-01] MEDS: oxyCODONE/APAP 5-325mg tablet NG PRN (21:56)
[2022-01-02] VITALS (24 sets, daily range): BP systolic 119–159; BP diastolic 56–91
[2022-01-02] MEDS: piperacillin/tazo 3.375gm/50ml 50 ML IV SCH ×2 (00:35→12:32)
[2022-01-02] MEDS: insulin regular, human U-100 3ml vial - multi-dose SQ SCH ×2 (03:13→20:24)
[2022-01-02 03:24] LABS: BASOPHILS # (AUTO) 0.3 X10'3 (0-0.2); EOSINOPHILS % (AUTO) 0 % (0-6); HEMATOCRIT 32.3 % (35.0-45.0); HEMOGLOBIN 10.6 g/dl (12.0-16.0); LYMPHOCYTES # (AUTO) 0.3 X10'3 (1.1-4.8); LYMPHOCYTES % (AUTO) 0.9 % (21-51); MEAN CORPUSCULAR HEMOGLOBIN 27.7 PG (27.0-31.0); MEAN CORPUSCULAR HGB CONC 32.7 g/dL (33.0-36.5); MEAN CORPUSCULAR VOLUME 84.8 FL (78-98); MEAN PLATELET VOLUME 11.8 FL (7.4-10.4); MONOCYTES # (AUTO) 0.8 X10'3 (0-0.9); MONOCYTES % (AUTO) 2.8 % (2-12); NEUTROPHILS # (AUTO) 28.6 X10'3 (1.8-7.7); NEUTROPHILS % (AUTO) 95.3 % (42-75); PLATELET COUNT 149 X10'3 (140-440); RED BLOOD COUNT 3.81 X10'6 (4.20-5.60); RED CELL DISTRIBUTION WIDTH 21.7 % (11.5-14.5)
[2022-01-02 03:46] LABS: ALANINE AMINOTRANSFERASE 38 U/L (12-78); ALBUMIN 2.4 G/DL (3.4-5.0); ALBUMIN/GLOBULIN RATIO 0.8 (1.1-1.5); ALKALINE PHOSPHATASE 62 IU/L (46-116); ANION GAP 18 (8-16); ASPARTATE AMINO TRANSFERASE 18 U/L (10-37); BILIRUBIN,TOTAL 0.3 MG/DL (0.1-1.0); CALCIUM 8.2 MG/DL (8.5-10.1); CHLORIDE 112 MMOL/L (99-107); CREATININE 2.79 MG/DL (0.40-0.90); GLUCOSE 198 MG/DL (70-104); POTASSIUM 3.7 MMOL/L (3.5-5.1); SODIUM 147 MMOL/L (135-145); TOTAL CARBON DIOXIDE 16.9 MMOL/L (24-32); TOTAL PROTEIN 5.4 G/DL (6.4-8.2); eGFR 17 ML/MIN
[2022-01-02 04:00] LABS: BLOOD UREA NITROGEN 174 MG/DL (7-18); BUN/CREATININE RATIO 62.4 (6.6-38.0)
[2022-01-02] MEDS: oxyCODONE/APAP 5-325mg tablet NG PRN (05:20)
--- NOTE | 2022-01-02 05:30 | NUR ---
RN Note -MD Communication Called Dr. Holt regarding critical WBC. No new orders.
--- NOTE | 2022-01-02 07:00 | NUR ---
Patient in room CICU 2009. I have received report from CAITY Chung and had the opportunity to ask questions and assume patient care.
[2022-01-02] MEDS: bumetanide 0.25mg/ml 4ml vial IV SCH (07:44)
[2022-01-02] MEDS: midodrine 5mg tablet NG SCH ×2 (07:46→20:00)
[2022-01-02] MEDS: budesonide 0.5mg/2ml UD nebule IH SCH ×2 (08:00→20:28)
[2022-01-02] MEDS: ARIPIPRAZOLE 10 MG TABLET NG SCH (08:00)
[2022-01-02] MEDS: venlafaxine 37.5mg tablet NG SCH ×2 (08:00→19:34)
[2022-01-02] MEDS: lansoprazole 15mg solutab NG SCH (08:01)
[2022-01-02] MEDS: loratadine 10mg tablet NG SCH (08:02)
[2022-01-02] MEDS: QUEtiapine 25mg tablet NG SCH ×2 (08:02→19:35)
[2022-01-02] MEDS: methylPREDNISolone sod succ 125mg/2ml vial IV SCH ×2 (08:04→19:33)
[2022-01-02] MEDS: nicotine 14mg patch - 24hr TD SCH (08:06)
[2022-01-02] MEDS: heparin, porcine 5000 units/ml vial SQ SCH ×2 (08:07→19:34)
[2022-01-02] MEDS: fluconazole-Diflucan 100MG/NS 50 ML IV SCH (08:08)
[2022-01-02] MEDS: nystatin 15 GM powder TP SCH ×3 (08:09→21:52)
[2022-01-02] MEDS: lactose-reduced food (Ensure Enlive) - 237ml bottle NG SCH ×3 (08:09→17:49)
[2022-01-02] MEDS: oxyCODONE/APAP 10/325mg tablet NG PRN ×2 (10:47→17:35)
[2022-01-02] MEDS ORDERED: ARIPIPRAZOLE 10 MG TABLET PO SCH (10:59)
[2022-01-02 11:28] LABS: ABG BASE EXCESS -7.7 mmol/L (-2.0-2.0); ABG HCO3 16.9 mmol/L (22.0-26.0); ABG OXYGEN SATURATION 91.4 % (94-97); ABG PO2 (T) 67.8 mmHg (75.0-100.0); ALLEN'S TEST POSITIVE; FCOHb 0.7 % (0.0-3.9); FO2Hb 90.8 % (94-97); PATIENT TEMPERATURE 37.4; TOTAL HEMOGLOBIN 11.1 G/dl (12.0-16.0)
[2022-01-02 11:49] LABS: CLARITY,URINE CLOUDY (Clear); COLOR,URINE YELLOW (Yellow); GLUCOSE, URINE NEGATIVE (Neg); KETONES,URINE NEGATIVE (Neg); LEUKOCYTE ESTERASE ,URINE MODERATE (Neg); NITRITES, URINE NEGATIVE (Neg); OCCULT BLOOD,URINE LARGE (Neg); PH,URINE 5.5 (4.8-8.0); PROTEIN,URINE 30 mg/dl (Neg); UROBILINOGEN,URINE 0.2 E.U/dL (0.2-1.0)
[2022-01-02 11:50] LABS: UA COLLECTION TYPE NON-SPECIFIED
[2022-01-02 11:59] LABS: SQUAMOUS EPITHELIAL CELL,UR NONE SEEN /LPF (FEW); YEAST MANY /HPF (NEGATIVE)
[2022-01-02 12:00] LABS: RBC,URINE 20-50 /HPF (0-2)
[2022-01-02 12:01] LABS: BACTERIA,URINE FEW /HPF (Neg)
[2022-01-02 15:05] LABS: C DIFF SPECIMEN=DIARRHEA? ACCEPTABLE; C DIFFICILE TOXINS A&B NEGATIVE (Neg)
--- NOTE | 2022-01-02 18:07 | NUR ---
Problems reprioritized. Patient report given, questions answered & plan of care reviewed with Page CAROLINA.
--- NOTE | 2022-01-02 18:25 | NUR ---
Patient in room CICU 2009. I have received report from eric CAROLINA and Page CAROLINA and had the opportunity to ask questions and assume patient care.
[2022-01-02] MEDS: lactobacillus rhamnosus 10,000 MMU CELLS/CAPSULE NG SCH (19:35)
[2022-01-02] MEDS: ipratropium/albuterol 3ml nebule NEB PRN (20:28)
[2022-01-02] MEDS: insulin glargine (Lantus) pen - multi-dose SQ SCH (21:00)
[2022-01-02] MEDS: Melatonin 3mg tablet NG SCH (21:51)
[2022-01-03] VITALS (23 sets, daily range): BP systolic 126–161; BP diastolic 59–90
[2022-01-03] MEDS: oxyCODONE/APAP 10/325mg tablet NG PRN (00:53)
[2022-01-03] MEDS: piperacillin/tazo 3.375gm/50ml 50 ML IV SCH ×2 (00:53→12:47)
[2022-01-03] MEDS: insulin regular, human U-100 3ml vial - multi-dose SQ SCH (02:29)
[2022-01-03 02:44] LABS: BASOPHILS # (AUTO) 0.1 X10'3 (0-0.2); BASOPHILS % (AUTO) 0.2 % (0-1); EOSINOPHILS % (AUTO) 0 % (0-6); HEMATOCRIT 30.3 % (35.0-45.0); HEMOGLOBIN 9.8 g/dl (12.0-16.0); LYMPHOCYTES # (AUTO) 0.1 X10'3 (1.1-4.8); LYMPHOCYTES % (AUTO) 0.5 % (21-51); MEAN CORPUSCULAR HEMOGLOBIN 27.3 PG (27.0-31.0); MEAN CORPUSCULAR HGB CONC 32.3 g/dL (33.0-36.5); MEAN CORPUSCULAR VOLUME 84.7 FL (78-98); MEAN PLATELET VOLUME 12.4 FL (7.4-10.4); MONOCYTES # (AUTO) 0.3 X10'3 (0-0.9); MONOCYTES % (AUTO) 0.9 % (2-12); NEUTROPHILS # (AUTO) 29.9 X10'3 (1.8-7.7); NEUTROPHILS % (AUTO) 98.4 % (42-75); PLATELET COUNT 118 X10'3 (140-440); RED BLOOD COUNT 3.58 X10'6 (4.20-5.60); RED CELL DISTRIBUTION WIDTH 22.1 % (11.5-14.5)
[2022-01-03 02:57] LABS: ALANINE AMINOTRANSFERASE 37 U/L (12-78); ALBUMIN 2.4 G/DL (3.4-5.0); ALBUMIN/GLOBULIN RATIO 0.8 (1.1-1.5); ALKALINE PHOSPHATASE 63 IU/L (46-116); ANION GAP 15 (8-16); ASPARTATE AMINO TRANSFERASE 23 U/L (10-37); BILIRUBIN,TOTAL 0.3 MG/DL (0.1-1.0); CALCIUM 8.3 MG/DL (8.5-10.1); CHLORIDE 113 MMOL/L (99-107); CREATININE 2.75 MG/DL (0.40-0.90); GLUCOSE 159 MG/DL (70-104); POTASSIUM 3.9 MMOL/L (3.5-5.1); SODIUM 147 MMOL/L (135-145); TOTAL CARBON DIOXIDE 18.9 MMOL/L (24-32); TOTAL PROTEIN 5.4 G/DL (6.4-8.2); eGFR 17 ML/MIN
[2022-01-03 03:00] LABS: WHITE BLOOD COUNT 30.4 X10'3 (4.5-11.0)
[2022-01-03 03:01] LABS: BLOOD UREA NITROGEN 164 MG/DL (7-18); BUN/CREATININE RATIO 59.6 (6.6-38.0)
[2022-01-03 04:24] LABS: TOTAL CELLS COUNTED 100
[2022-01-03 04:25] LABS: ANISOCYTOSIS 3+; PLATELET ESTIMATE DECREASED
[2022-01-03 04:27] LABS: HYPERSEGMENTED NEUTROPHILS 2+
--- NOTE | 2022-01-03 06:24 | NUR ---
Problems reprioritized. Patient report given to John CAROLINA, questions answered & plan of care reviewed with .
[2022-01-03] MEDS: dexmedetomidin/NS 400mcg/100ml 100 ML IV SCH (07:46)
[2022-01-03] MEDS: fluconazole-Diflucan 100MG/NS 50 ML IV SCH (07:51)
[2022-01-03] MEDS: ARIPIPRAZOLE 10 MG TABLET NG SCH (07:52)
[2022-01-03] MEDS: lansoprazole 15mg solutab NG SCH (07:52)
[2022-01-03] MEDS: loratadine 10mg tablet NG SCH (07:52)
[2022-01-03] MEDS: lactobacillus rhamnosus 10,000 MMU CELLS/CAPSULE NG SCH ×2 (07:52→20:40)
[2022-01-03] MEDS: nicotine 14mg patch - 24hr TD SCH (07:52)
[2022-01-03] MEDS: venlafaxine 37.5mg tablet NG SCH ×2 (07:52→20:41)
[2022-01-03] MEDS: QUEtiapine 25mg tablet NG SCH ×2 (07:52→20:40)
[2022-01-03] MEDS: bumetanide 0.25mg/ml 4ml vial IV SCH (07:53)
[2022-01-03] MEDS: methylPREDNISolone sod succ 125mg/2ml vial IV SCH ×2 (07:53→20:39)
[2022-01-03] MEDS: heparin, porcine 5000 units/ml vial SQ SCH ×2 (07:53→20:39)
[2022-01-03] MEDS: lactose-reduced food (Ensure Enlive) - 237ml bottle NG SCH ×3 (07:54→17:49)
[2022-01-03] MEDS: nystatin 15 GM powder TP SCH ×3 (07:54→21:13)
[2022-01-03] MEDS: midodrine 5mg tablet NG SCH ×2 (08:00→20:40)
[2022-01-03] MEDS: budesonide 0.5mg/2ml UD nebule IH SCH ×2 (08:22→19:59)
[2022-01-03] MEDS: oxyCODONE/APAP 5-325mg tablet NG PRN ×2 (09:19→13:45)
--- NOTE | 2022-01-03 18:06 | NUR ---
Problems reprioritized. Patient report given, questions answered & plan of care reviewed with Girish CAROLINA.
[2022-01-03] MEDS: metoprolol tartrate 25mg tablet PO SCH (20:40)
[2022-01-03] MEDS: Melatonin 3mg tablet NG SCH (20:40)
[2022-01-03] MEDS: insulin glargine (Lantus) pen - multi-dose SQ SCH (21:00)
[2022-01-04] VITALS (21 sets, daily range): BP systolic 110–164; BP diastolic 53–82
[2022-01-04] MEDS: oxyCODONE/APAP 5-325mg tablet NG PRN (02:33)
[2022-01-04] MEDS: dexmedetomidin/NS 400mcg/100ml 100 ML IV SCH ×2 (02:33→12:01)
[2022-01-04 03:13] LABS: EOSINOPHILS % (AUTO) 0 % (0-6); HEMATOCRIT 29.5 % (35.0-45.0); LYMPHOCYTES # (AUTO) 0.2 X10'3 (1.1-4.8); LYMPHOCYTES % (AUTO) 0.7 % (21-51); NEUTROPHILS % (AUTO) 98.4 % (42-75); WHITE BLOOD COUNT 22.8 X10'3 (4.5-11.0)
[2022-01-04 03:16] LABS: BASOPHILS # (AUTO) 0.1 X10'3 (0-0.2); BASOPHILS % (AUTO) 0.3 % (0-1); HEMOGLOBIN 9.5 g/dl (12.0-16.0); MEAN CORPUSCULAR HEMOGLOBIN 27.5 PG (27.0-31.0); MEAN CORPUSCULAR HGB CONC 32.3 g/dL (33.0-36.5); MEAN CORPUSCULAR VOLUME 85.1 FL (78-98); MEAN PLATELET VOLUME 13.2 FL (7.4-10.4); MONOCYTES # (AUTO) 0.1 X10'3 (0-0.9); MONOCYTES % (AUTO) 0.6 % (2-12); NEUTROPHILS # (AUTO) 22.5 X10'3 (1.8-7.7); PLATELET COUNT 116 X10'3 (140-440); RED BLOOD COUNT 3.47 X10'6 (4.20-5.60); RED CELL DISTRIBUTION WIDTH 21.9 % (11.5-14.5)
[2022-01-04 03:30] LABS: ALANINE AMINOTRANSFERASE 38 U/L (12-78); ALBUMIN 2.3 G/DL (3.4-5.0); ALBUMIN/GLOBULIN RATIO 0.8 (1.1-1.5); ALKALINE PHOSPHATASE 55 IU/L (46-116); ANION GAP 16 (8-16); ASPARTATE AMINO TRANSFERASE 24 U/L (10-37); BILIRUBIN,TOTAL 0.3 MG/DL (0.1-1.0); BLOOD UREA NITROGEN 160 MG/DL (7-18); BUN/CREATININE RATIO 59.9 (6.6-38.0); CALCIUM 8.2 MG/DL (8.5-10.1); CHLORIDE 115 MMOL/L (99-107); CREATININE 2.67 MG/DL (0.40-0.90); GLUCOSE 154 MG/DL (70-104); POTASSIUM 4.3 MMOL/L (3.5-5.1); SODIUM 150 MMOL/L (135-145); TOTAL CARBON DIOXIDE 18.8 MMOL/L (24-32); TOTAL PROTEIN 5.3 G/DL (6.4-8.2); eGFR 18 ML/MIN
--- NOTE | 2022-01-04 07:52 | NUR ---
Reassessment: Pt continues on nocturnal tube feeds as well as Puree diet. PO intake has not improved much, remains mostly 0-25% though has consumed ~45% of ONS. Overall meeting est needs at this time w/ use of TF and ONS. Recommend continuing w/ TF until pt can consistently consume at least 50% of meals and ONS. 600ml stool output noted 01/03. Will continue to monitor. Recommendations: 1. Nocturnal TF per MD using Vital AF with 85 mL/hr goal from [id number]; to provide 1020 mL volume/day, 1224 kcal, 77 g protein, and 827 mL water. Will meet 93% minimum EEN and 97% EPN 2. Continue pureed diet with thin liquids per ; monitor for PO acceptance and EN adjustment needs 3. Ensure Enlive TID; chocolate shake BIDLD 4. Additional water 200 Q4H; monitor serum Na 5. PALB q Wednesday/ 6. Daily scaled weights 7. Continue with TF until appetite and PO intake improves 8. Bowel care PRN Addendum: 01/04/22 at [address] Amended: Links added.
[2022-01-04] MEDS: budesonide 0.5mg/2ml UD nebule IH SCH ×2 (07:58→20:41)
[2022-01-04] MEDS: ipratropium/albuterol 3ml nebule NEB PRN ×2 (07:58→20:41)
[2022-01-04] MEDS: lactose-reduced food (Ensure Enlive) - 237ml bottle NG SCH ×3 (08:00→18:00)
[2022-01-04] MEDS: midodrine 5mg tablet NG SCH (08:00)
[2022-01-04] MEDS ORDERED: LOPERAMIDE 2 mg/15 ml oral solution UD PO ONE (08:35)
[2022-01-04] MEDS: methylPREDNISolone sod succ 125mg/2ml vial IV SCH ×2 (09:29→21:29)
[2022-01-04] MEDS: lansoprazole 15mg solutab NG SCH (09:30)
[2022-01-04] MEDS: venlafaxine 37.5mg tablet NG SCH ×2 (09:30→21:28)
[2022-01-04] MEDS: nicotine 14mg patch - 24hr TD SCH (09:30)
[2022-01-04] MEDS: loratadine 10mg tablet NG SCH (09:31)
[2022-01-04] MEDS: metoprolol tartrate 25mg tablet PO SCH ×2 (09:31→21:28)
[2022-01-04] MEDS: lactobacillus rhamnosus 10,000 MMU CELLS/CAPSULE NG SCH ×2 (09:36→21:29)
[2022-01-04] MEDS: bumetanide 0.25mg/ml 4ml vial IV SCH (09:36)
[2022-01-04] MEDS: QUEtiapine 25mg tablet NG SCH ×2 (09:36→21:29)
[2022-01-04] MEDS: fluconazole-Diflucan 100MG/NS 50 ML IV SCH (09:37)
[2022-01-04] MEDS: nystatin 15 GM powder TP SCH ×3 (09:38→21:30)
[2022-01-04] MEDS: heparin, porcine 5000 units/ml vial SQ SCH ×2 (09:38→21:29)
[2022-01-04] MEDS: ARIPIPRAZOLE 10 MG TABLET NG SCH (09:40)
[2022-01-04] MEDS: insulin regular, human U-100 3ml vial - multi-dose SQ SCH ×3 (09:44→21:42)
[2022-01-04] MEDS ORDERED: midodrine 5mg tablet NG PRN (18:35)
--- NOTE | 2022-01-04 18:38 | NUR ---
Patient in room CICU 2009. I have received report from CAITY Gilliam and had the opportunity to ask questions and assume patient care.
[2022-01-04] MEDS: Melatonin 3mg tablet NG SCH (21:28)
[2022-01-04] MEDS: insulin glargine (Lantus) pen - multi-dose SQ SCH (21:44)
[2022-01-05] VITALS (30 sets, daily range): BP systolic 76–178; BP diastolic 40–80
[2022-01-05] MEDS: insulin regular, human U-100 3ml vial - multi-dose SQ SCH ×4 (02:19→20:41)
[2022-01-05] MEDS: dexmedetomidin/NS 400mcg/100ml 100 ML IV SCH (02:49)
[2022-01-05 03:06] LABS: BASOPHILS # (AUTO) 0.1 X10'3 (0-0.2); BASOPHILS % (AUTO) 0.3 % (0-1); EOSINOPHILS % (AUTO) 0 % (0-6); HEMOGLOBIN 9.1 g/dl (12.0-16.0); LYMPHOCYTES # (AUTO) 0.2 X10'3 (1.1-4.8); LYMPHOCYTES % (AUTO) 0.6 % (21-51); MONOCYTES # (AUTO) 0.4 X10'3 (0-0.9); RED BLOOD COUNT 3.32 X10'6 (4.20-5.60)
[2022-01-05 03:08] LABS: ALANINE AMINOTRANSFERASE 43 U/L (12-78); ALBUMIN 2.2 G/DL (3.4-5.0); ALBUMIN/GLOBULIN RATIO 0.8 (1.1-1.5); ALKALINE PHOSPHATASE 62 IU/L (46-116); ANION GAP 13 (8-16); ASPARTATE AMINO TRANSFERASE 24 U/L (10-37); BILIRUBIN,TOTAL 0.2 MG/DL (0.1-1.0); CHLORIDE 118 MMOL/L (99-107); CREATININE 2.55 MG/DL (0.40-0.90); GLUCOSE 139 MG/DL (70-104); HEMATOCRIT 28.6 % (35.0-45.0); MEAN CORPUSCULAR HEMOGLOBIN 27.2 PG (27.0-31.0); MEAN CORPUSCULAR HGB CONC 31.7 g/dL (33.0-36.5); MEAN PLATELET VOLUME 12.6 FL (7.4-10.4); MONOCYTES % (AUTO) 1.2 % (2-12); NEUTROPHILS % (AUTO) 97.9 % (42-75); PLATELET COUNT 111 X10'3 (140-440); POTASSIUM 4.4 MMOL/L (3.5-5.1); RED CELL DISTRIBUTION WIDTH 21.8 % (11.5-14.5); SODIUM 151 MMOL/L (135-145); TOTAL CARBON DIOXIDE 20.1 MMOL/L (24-32); TOTAL PROTEIN 5.1 G/DL (6.4-8.2); eGFR 19 ML/MIN
[2022-01-05 03:09] LABS: BLOOD UREA NITROGEN 163 MG/DL (7-18); BUN/CREATININE RATIO 63.9 (6.6-38.0)
[2022-01-05 04:38] LABS: ANISOCYTOSIS 3+; PLATELET ESTIMATE DECREASED; TOTAL CELLS COUNTED 100
[2022-01-05 04:39] LABS: LARGE PLATELETS MODERATE
[2022-01-05 04:40] LABS: ELLIPTOCYTES 1+
[2022-01-05 05:10] LABS: WHITE BLOOD COUNT 30.6 X10'3 (4.5-11.0)
--- NOTE | 2022-01-05 06:12 | NUR ---
Problems reprioritized. Patient report given, questions answered & plan of care reviewed with CAITY Oh.
--- NOTE | 2022-01-05 06:18 | NUR ---
Received report from CAITY Kang Addendum: 01/05/22 at 0655 by Althea Morales RN Received report from CAITY Soto Addendum: 01/05/22 at 0655 by Althea Morales RN Report from CAITY Kang
[2022-01-05] MEDS: lactobacillus rhamnosus 10,000 MMU CELLS/CAPSULE NG SCH ×2 (09:07→20:30)
[2022-01-05] MEDS: methylPREDNISolone sod succ 125mg/2ml vial IV SCH ×2 (09:07→20:31)
[2022-01-05] MEDS: lansoprazole 15mg solutab NG SCH (09:08)
[2022-01-05] MEDS: ARIPIPRAZOLE 10 MG TABLET NG SCH (09:08)
[2022-01-05] MEDS: venlafaxine 37.5mg tablet NG SCH (09:08)
[2022-01-05] MEDS: heparin, porcine 5000 units/ml vial SQ SCH ×2 (09:08→20:31)
[2022-01-05] MEDS: loratadine 10mg tablet NG SCH (09:08)
[2022-01-05] MEDS: nicotine 14mg patch - 24hr TD SCH (09:20)
[2022-01-05] MEDS: metoprolol tartrate 25mg tablet PO SCH ×2 (09:21→20:00)
[2022-01-05] MEDS: fluconazole-Diflucan 100MG/NS 50 ML IV SCH (09:21)
[2022-01-05] MEDS: nystatin 15 GM powder TP SCH ×3 (09:22→20:32)
[2022-01-05] MEDS: budesonide 0.5mg/2ml UD nebule IH SCH ×2 (09:43→19:20)
[2022-01-05] MEDS ORDERED: etomidate 2mg/ml inj. ONE (10:00)
[2022-01-05] MEDS ORDERED: epiNEPHrine 0.1mg/ml 10ml syringe ONE (10:00)
[2022-01-05] MEDS ORDERED: sodium bicarbonate (8.4%) 1 mEq/ml syringe ONE ×2 (10:00→12:27)
[2022-01-05] MEDS ORDERED: dextrose 50%-water 50ml dispensing syringe IV ONE (10:00)
--- NOTE | 2022-01-05 10:30 | NUR ---
Order received for CT scan of head for ALOC.
--- NOTE | 2022-01-05 11:33 | NUR ---
F/u 01/05: Pt PO remains poor mostly 0-25% vs refusals of meals and now ONS as well w/ nocturnal feeds to return to 24/7 EN given increasing ALOC per pump erector helper at rounds. Pt still cleared for pureed/thin per [employer] EXCHANGE REPAIRER this AM w/ PO diet to remain at this time per MD at rounds. Noted rectal tube -1845ml yesterday up from 300-600ml prior two days receiving probiotic per EMR. Line Assigner agreeable to RD adjusting EN to higher fiber formula; updated recs below. Unable to give anti-diarrheal since possible to further worsen mentation per MD at rounds. Will continue to monitor for EN tolerance and further nutrition intervention needs. Recommendations: 1. Continuous TF per MD using Jevity 1.2 at 55mL/hr goal; to provide 1320mL volume/day, 1584 kcals, 73g protein, and 1065mL water. Initiate at 55ml/hr since tolerating prior nocturnal feeds at 85ml/hr. 2. Continue pureed diet with thin liquids per ST/MD recs 3. Ensure Enlive TID; encourage meal/ONS intake 4. Additional water 200 Q4H; monitor serum Na 5. PALB q Wednesday/ 6. Daily scaled weights 7. EN until PO consistently at least 50% avg meals/ONS 8. probiotic for continued diarrhea per MD Addendum: 01/05/22 at [address] Amended: Links added.
--- NOTE | 2022-01-05 11:35 | NUR ---
Returned from lunch break, break RN had to turn 02 up to 6L from 4L. Patient less alert. BP decreasing.
[2022-01-05] MEDS ORDERED: NORepinephrine 8mg/ 250ml NS 250 ML IV ONE (12:03)
[2022-01-05] MEDS ORDERED: albumin (Human) 5% 250ml 250 ML IV ONE (12:07)
[2022-01-05] MEDS: meropenem inj 500 MG in normal saline 100ml IV soln 100 ML IV SCH ×2 (12:20→20:31)
[2022-01-05 12:23] LABS: ABG BASE EXCESS -13.4 mmol/L (-2.0-2.0); ABG HCO3 16.7 mmol/L (22.0-26.0); ABG OXYGEN SATURATION 87.9 % (94-97); ABG PCO2 (T) 63.8 mmHg (32.0-45.0); ABG PO2 (T) 73.1 mmHg (75.0-100.0); FCOHb 0.3 % (0.0-3.9); FLOW 15 L/min; FMetHb 0.5 % (0.0-1.5); FO2Hb 87.2 % (94-97); TOTAL HEMOGLOBIN 9.6 G/dl (12.0-16.0)
--- NOTE | 2022-01-05 12:37 | NUR ---
Dr. Virgen intubated patient at 1237.
[2022-01-05] MEDS ORDERED: MIDAZOLAM IV SCH (12:55)
[2022-01-05] MEDS ORDERED: acetaminophen 325mg/10.15ml oral unit dose solution PO PRN (12:55)
[2022-01-05] MEDS ORDERED: NORMAL SALINE IV SCH (12:55)
[2022-01-05] MEDS ORDERED: DEXTROSE 15 GM of carb/4 tabs (each vial/BOTTLE has 4 tablets) PO PRN ×2 (12:58)
[2022-01-05] MEDS ORDERED: vancomycin/NS 1 GM ADD-VANTAGE 250 ML IV ONE (13:00)
[2022-01-05] MEDS: lactose-reduced food (Ensure Enlive) - 237ml bottle PO SCH ×2 (13:00→17:19)
[2022-01-05] MEDS ORDERED: midodrine 5mg tablet PO PRN (13:09)
[2022-01-05] MEDS ORDERED: oxyCODONE/APAP 10/325mg tablet PO PRN (13:09)
[2022-01-05] MEDS: MIDAZOLAM IV SCH (13:46)
[2022-01-05] MEDS: NORMAL SALINE IV SCH (13:46)
[2022-01-05] MEDS: FENTANYL-0.9 % NACL/PF 100 ML IV PRN (13:47)
[2022-01-05] MEDS ORDERED: meropenem inj 500 MG in normal saline 100ml IV soln 100 ML IV SCH (14:00)
[2022-01-05 15:29] LABS: ABG BASE EXCESS -7.4 mmol/L (-2.0-2.0); ABG HCO3 17.9 mmol/L (22.0-26.0); ABG PCO2 (T) 36.2 mmHg (32.0-45.0); ABG PO2 (T) 305.2 mmHg (75.0-100.0); FCOHb 0.3 % (0.0-3.9); FMetHb 0.5 % (0.0-1.5); FO2Hb 98.2 % (94-97); PATIENT TEMPERATURE 37.5; PEEP 5 cm H2O; RESPIRATORY RATE 20 b/min; TIDAL VOLUME 400 mL; TOTAL HEMOGLOBIN 8.7 G/dl (12.0-16.0)
--- NOTE | 2022-01-05 18:42 | NUR ---
Report given to CAITY Kang
[2022-01-05] MEDS: ipratropium/albuterol 3ml nebule NEB PRN (19:20)
[2022-01-05] MEDS: venlafaxine 37.5mg tablet PO SCH (20:30)
[2022-01-05] MEDS: QUEtiapine 25mg tablet PO SCH (20:31)
[2022-01-05] MEDS: Melatonin 3mg tablet PO SCH (20:32)
[2022-01-05] MEDS: insulin glargine (Lantus) pen - multi-dose SQ SCH (20:42)
[2022-01-06] VITALS (38 sets, daily range): BP systolic 85–138; BP diastolic 30–62
[2022-01-06] MEDS: insulin regular, human U-100 3ml vial - multi-dose SQ SCH ×4 (02:27→19:51)
[2022-01-06] MEDS: VANCOMYCIN LEVEL IV SCH ×2 (03:00→19:53)
[2022-01-06 03:05] LABS: BASOPHILS % (AUTO) 0.2 % (0-1); EOSINOPHILS % (AUTO) 0 % (0-6); HEMATOCRIT 22.9 % (35.0-45.0); HEMOGLOBIN 7.4 g/dl (12.0-16.0); LYMPHOCYTES # (AUTO) 0.1 X10'3 (1.1-4.8); LYMPHOCYTES % (AUTO) 0.6 % (21-51); MEAN CORPUSCULAR HEMOGLOBIN 27.9 PG (27.0-31.0); MEAN CORPUSCULAR HGB CONC 32.5 g/dL (33.0-36.5); MEAN CORPUSCULAR VOLUME 85.6 FL (78-98); MEAN PLATELET VOLUME 12.6 FL (7.4-10.4); MONOCYTES # (AUTO) 0.2 X10'3 (0-0.9); MONOCYTES % (AUTO) 1.1 % (2-12); NEUTROPHILS # (AUTO) 20.4 X10'3 (1.8-7.7); NEUTROPHILS % (AUTO) 98.1 % (42-75); PLATELET COUNT 95 X10'3 (140-440); RED BLOOD COUNT 2.67 X10'6 (4.20-5.60); WHITE BLOOD COUNT 20.8 X10'3 (4.5-11.0)
[2022-01-06 03:18] LABS: ALANINE AMINOTRANSFERASE 40 U/L (12-78); ALBUMIN/GLOBULIN RATIO 0.8 (1.1-1.5); ALKALINE PHOSPHATASE 61 IU/L (46-116); ASPARTATE AMINO TRANSFERASE 22 U/L (10-37); BILIRUBIN,TOTAL 0.3 MG/DL (0.1-1.0); CALCIUM 7.6 MG/DL (8.5-10.1); CREATININE 2.41 MG/DL (0.40-0.90); GLUCOSE 161 MG/DL (70-104); MAGNESIUM 1.7 MG/DL (1.5-2.4); PHOSPHORUS 8.2 MG/DL (2.3-4.5); TOTAL CARBON DIOXIDE 19.9 MMOL/L (24-32); TOTAL PROTEIN 4.5 G/DL (6.4-8.2); VANCOMYCIN,RANDOM 18.9 UG/ML; eGFR 20 ML/MIN
[2022-01-06 03:37] LABS: ABG BASE EXCESS -7.7 mmol/L (-2.0-2.0); ABG HCO3 17.2 mmol/L (22.0-26.0); ABG OXYGEN SATURATION 92.5 % (94-97); ABG PCO2 (T) 31.9 mmHg (32.0-45.0); ABG PO2 (T) 69.1 mmHg (75.0-100.0); FCOHb 0.3 % (0.0-3.9); FMetHb 0.6 % (0.0-1.5); FO2Hb 91.7 % (94-97); PATIENT TEMPERATURE 36.7; PEEP 5 cm H2O; RESPIRATORY RATE 20 b/min; TIDAL VOLUME 400 mL
[2022-01-06 03:41] LABS: ANION GAP 15 (8-16); CHLORIDE 119 MMOL/L (99-107); POTASSIUM 4.1 MMOL/L (3.5-5.1); SODIUM 154 MMOL/L (135-145)
[2022-01-06 04:08] LABS: BLOOD UREA NITROGEN 166 MG/DL (7-18); BUN/CREATININE RATIO 68.9 (6.6-38.0)
--- NOTE | 2022-01-06 06:12 | NUR ---
Problems reprioritized. Patient report given, questions answered & plan of care reviewed with day shift RN.
--- NOTE | 2022-01-06 06:30 | NUR ---
Patient in room CICU 2009. I have received report from Pearl CAROLINA and had the opportunity to ask questions and assume patient care.
--- NOTE | 2022-01-06 07:10 | NUR ---
Problems reprioritized. Patient report given, questions answered & plan of care reviewed with Mane CAROLINA.
[2022-01-06] MEDS: lactose-reduced food (Ensure Enlive) - 237ml bottle PO SCH ×3 (08:00→18:00)
[2022-01-06] MEDS: heparin, porcine 5000 units/ml vial SQ SCH (08:00)
[2022-01-06] MEDS ORDERED: vancomycin/NS 1 GM ADD-VANTAGE 250 ML X 1 DOSE IV PRN (08:00)
[2022-01-06] MEDS ORDERED: micafungin inj 100 MG in normal saline 100ml IV soln 100 ML IV SCH (08:00)
[2022-01-06] MEDS: metoprolol tartrate 25mg tablet PO SCH ×2 (08:00→19:44)
[2022-01-06] MEDS: Dakins solution (1/4 strength) 473ml solution TP SCH (08:00)
[2022-01-06] MEDS: ipratropium/albuterol 3ml nebule NEB PRN (08:11)
[2022-01-06] MEDS: budesonide 0.5mg/2ml UD nebule IH SCH ×2 (08:11→20:12)
[2022-01-06] MEDS: meropenem inj 500 MG in normal saline 100ml IV soln 100 ML IV SCH ×2 (08:35→19:43)
[2022-01-06] MEDS: dextrose 5%-water 1,000 ML IV SCH ×2 (08:36→22:20)
[2022-01-06] MEDS: nystatin 15 GM powder TP SCH ×3 (08:36→19:53)
[2022-01-06] MEDS: venlafaxine 37.5mg tablet PO SCH ×2 (08:37→19:43)
[2022-01-06] MEDS: nicotine 14mg patch - 24hr TD SCH (08:37)
[2022-01-06] MEDS: methylPREDNISolone sod succ 125mg/2ml vial IV SCH ×2 (08:37→19:44)
[2022-01-06] MEDS: lansoprazole 15mg solutab PO SCH (08:38)
[2022-01-06] MEDS: lactobacillus rhamnosus 10,000 MMU CELLS/CAPSULE NG SCH ×2 (08:38→19:43)
[2022-01-06] MEDS: ARIPIPRAZOLE 10 MG TABLET PO SCH (08:38)
[2022-01-06] MEDS: loratadine 10mg tablet PO SCH (08:39)
[2022-01-06] MEDS: QUEtiapine 25mg tablet PO SCH ×2 (08:39→19:43)
[2022-01-06] MEDS: FENTANYL-0.9 % NACL/PF 100 ML IV PRN (08:56)
[2022-01-06] MEDS ORDERED: LOPERAMIDE 2 mg/15 ml oral solution UD NG ONE (09:15)
--- NOTE | 2022-01-06 12:00 | NUR ---
Reassessment: Pt reintubated, MD arellano adjusting TF recommendations to meet patient's estimated nutrient needs while on the vent, see below. Per RN at critical care rounds pt started on D5 at 75 mL/hr d/t elevated serum Na of 154 MMOL/L. Pt also receiving 200 mL water flushes Q4H. Per MD water flushes not to change at this time. TF recommendations have been adjusted appropriately d/t 306 kcal/day from D5. See additional recommendations below for if D5 to be discontinued. Pt continues with a rectal tube in place, visualized at bedside with roughly 500 mL stool output. Pt received one time dose of Imodium today and 01/04 per EMR. Pt continues receiving routine Culturelle. Will continue to follow closely. Recommendations: 1. Given D5 at 75 mL/hr (306 kcal/day), continuous Vital HP at 50 mL/hr to provide 1200 mL total volume/day, 1200 kcal, 105 g protein, and 1003 mL water 2. IF D5 discontinued, continuous Vital AF with 55 mL/hr goal rate to provide 1320 mL total volume/day, 1584 kcal, 99 g protein, and 1071 mL water 3. Additional 200 mL water flush Q4H; monitor serum Na; no changes to water flushes at this time per MD 4. Prealbumin q Wednesday/ 5. Daily scaled weights 6. Diet advancement to regular as medically indicated following extubation with f/u BSS with ST; continue with NGTF until pt with adequate PO intake Addendum: 01/06/22 at [address] Amended: Links added.
[2022-01-06 14:15] LABS: MEAN CORPUSCULAR HEMOGLOBIN 27.6 PG (27.0-31.0); MEAN CORPUSCULAR VOLUME 86.1 FL (78-98); MEAN PLATELET VOLUME 13.1 FL (7.4-10.4); PLATELET COUNT 88 X10'3 (140-440); RED CELL DISTRIBUTION WIDTH 22.3 % (11.5-14.5); WHITE BLOOD COUNT 13.7 X10'3 (4.5-11.0)
[2022-01-06 14:19] LABS: HEMOGLOBIN 6.6 g/dl (12.0-16.0)
[2022-01-06 14:20] LABS: HEMATOCRIT 20.7 % (35.0-45.0)
--- NOTE | 2022-01-06 14:55 | NUR ---
Dr Virgen noted concern for fluid collection on left side of abd. [facility] nurse sent message to Dr Saunders re this concern as well as to notify that WBC had increased to 30.5. Per this is Dr Berman's patient, message to Dr Camara who states that he will contact Dr Virgen re this. Addendum: 01/06/22 at 1458 by Analy Apodaca RN Amended: Links added.
--- NOTE | 2022-01-06 18:05 | NUR ---
1000- D5W at 75 for NA of 154.
--- NOTE | 2022-01-06 18:19 | NUR ---
Patient in room CICU 2009. I have received report from CAITY Gilliam and had the opportunity to ask questions and assume patient care.
[2022-01-06] MEDS: Melatonin 3mg tablet PO SCH (18:22)
[2022-01-06] MEDS: insulin glargine (Lantus) pen - multi-dose SQ SCH (19:52)
--- NOTE | 2022-01-06 21:56 | NUR ---
[facility] for 2100 hemogram were faxed to me and placed in hard chart.
[2022-01-07] VITALS (35 sets, daily range): BP systolic 100–154; BP diastolic 4–93
[2022-01-07 00:57] LABS: HEMATOCRIT 23.9 % (35.0-45.0); HEMOGLOBIN 7.8 g/dl (12.0-16.0); MEAN CORPUSCULAR HGB CONC 32.4 g/dL (33.0-36.5); MEAN CORPUSCULAR VOLUME 86.5 FL (78-98); MEAN PLATELET VOLUME 12.7 FL (7.4-10.4); PLATELET COUNT 77 X10'3 (140-440); RED BLOOD COUNT 2.77 X10'6 (4.20-5.60); RED CELL DISTRIBUTION WIDTH 20.6 % (11.5-14.5); WHITE BLOOD COUNT 13.8 X10'3 (4.5-11.0)
[2022-01-07] MEDS: insulin regular, human U-100 3ml vial - multi-dose SQ SCH ×3 (02:29→21:01)
[2022-01-07 03:21] LABS: BASOPHILS % (AUTO) 0.1 % (0-1); EOSINOPHILS % (AUTO) 0 % (0-6); HEMATOCRIT 24.7 % (35.0-45.0); LYMPHOCYTES # (AUTO) 0.1 X10'3 (1.1-4.8); LYMPHOCYTES % (AUTO) 0.6 % (21-51); MEAN CORPUSCULAR HEMOGLOBIN 28.4 PG (27.0-31.0); MEAN CORPUSCULAR HGB CONC 32.4 g/dL (33.0-36.5); MEAN CORPUSCULAR VOLUME 87.9 FL (78-98); MONOCYTES # (AUTO) 0.2 X10'3 (0-0.9); MONOCYTES % (AUTO) 1.4 % (2-12); NEUTROPHILS # (AUTO) 14.2 X10'3 (1.8-7.7); NEUTROPHILS % (AUTO) 97.9 % (42-75); PLATELET COUNT 82 X10'3 (140-440); RED BLOOD COUNT 2.81 X10'6 (4.20-5.60); RED CELL DISTRIBUTION WIDTH 20.7 % (11.5-14.5); WHITE BLOOD COUNT 14.6 X10'3 (4.5-11.0)
[2022-01-07 03:34] LABS: ALANINE AMINOTRANSFERASE 32 U/L (12-78); ALBUMIN 1.8 G/DL (3.4-5.0); ALBUMIN/GLOBULIN RATIO 0.8 (1.1-1.5); ALKALINE PHOSPHATASE 52 IU/L (46-116); ANION GAP 15 (8-16); ASPARTATE AMINO TRANSFERASE 14 U/L (10-37); BILIRUBIN,TOTAL 0.2 MG/DL (0.1-1.0); CALCIUM 7.5 MG/DL (8.5-10.1); CHLORIDE 114 MMOL/L (99-107); CREATININE 2.25 MG/DL (0.40-0.90); GLUCOSE 156 MG/DL (70-104); MAGNESIUM 1.7 MG/DL (1.5-2.4); PHOSPHORUS 8.5 MG/DL (2.3-4.5); POTASSIUM 4.4 MMOL/L (3.5-5.1); SODIUM 147 MMOL/L (135-145); TOTAL CARBON DIOXIDE 18.4 MMOL/L (24-32); TOTAL PROTEIN 4.2 G/DL (6.4-8.2); VANCOMYCIN,RANDOM 14.6 UG/ML; eGFR 22 ML/MIN
[2022-01-07 04:08] LABS: BLOOD UREA NITROGEN 158 MG/DL (7-18); BUN/CREATININE RATIO 70.2 (6.6-38.0)
[2022-01-07 04:09] LABS: TOTAL CELLS COUNTED 100
[2022-01-07 04:10] LABS: ANISOCYTOSIS 3+; PLATELET ESTIMATE DECREASED
[2022-01-07 04:11] LABS: LARGE PLATELETS FEW
[2022-01-07 04:16] LABS: ABG BASE EXCESS -11.5 mmol/L (-2.0-2.0); ABG HCO3 14.4 mmol/L (22.0-26.0); ABG OXYGEN SATURATION 95.3 % (94-97); ABG PCO2 (T) 31.5 mmHg (32.0-45.0); ABG PO2 (T) 84.5 mmHg (75.0-100.0); ALLEN'S TEST POSITIVE; FCOHb 0.3 % (0.0-3.9); FMetHb 0.5 % (0.0-1.5); FO2Hb 94.5 % (94-97); PATIENT TEMPERATURE 36.4; PEEP 5 cm H2O; RESPIRATORY RATE 16 b/min; TIDAL VOLUME 400 mL; TOTAL HEMOGLOBIN 8.7 G/dl (12.0-16.0)
--- NOTE | 2022-01-07 06:25 | NUR ---
Problems reprioritized. Patient report given, questions answered & plan of care reviewed with CAITY Cool.
[2022-01-07] MEDS: meropenem inj 500 MG in normal saline 100ml IV soln 100 ML IV SCH ×2 (07:25→21:05)
[2022-01-07] MEDS: loratadine 10mg tablet PO SCH (07:33)
[2022-01-07] MEDS: QUEtiapine 25mg tablet PO SCH ×2 (07:33→20:37)
[2022-01-07] MEDS: ARIPIPRAZOLE 10 MG TABLET PO SCH (07:33)
[2022-01-07] MEDS: lansoprazole 15mg solutab PO SCH (07:33)
[2022-01-07] MEDS: lactobacillus rhamnosus 10,000 MMU CELLS/CAPSULE NG SCH ×2 (07:33→20:37)
[2022-01-07] MEDS: venlafaxine 37.5mg tablet PO SCH ×2 (07:34→20:37)
[2022-01-07] MEDS: ipratropium/albuterol 3ml nebule NEB PRN (07:37)
[2022-01-07] MEDS: budesonide 0.5mg/2ml UD nebule IH SCH ×2 (07:37→21:10)
[2022-01-07] MEDS: nicotine 14mg patch - 24hr TD SCH (07:38)
[2022-01-07] MEDS: methylPREDNISolone sod succ 125mg/2ml vial IV SCH ×2 (07:53→20:38)
[2022-01-07] MEDS: Dakins solution (1/4 strength) 473ml solution TP SCH (07:53)
[2022-01-07] MEDS: nystatin 15 GM powder TP SCH ×3 (07:53→21:05)
[2022-01-07] MEDS: metoprolol tartrate 25mg tablet PO SCH ×2 (07:59→20:38)
[2022-01-07] MEDS ORDERED: sod chloride 0.9% 10ml flush syringe IV ONE (08:00)
[2022-01-07] MEDS ORDERED: atropine 0.1mg/ml 10ml syringe ONE (08:00)
[2022-01-07] MEDS: lactose-reduced food (Ensure Enlive) - 237ml bottle PO SCH ×3 (08:19→18:00)
[2022-01-07] MEDS: heparin, porcine 5000 units/ml vial SQ SCH ×2 (08:23→20:38)
[2022-01-07] MEDS: bumetanide 0.25mg/ml 4ml vial IV SCH (10:22)
[2022-01-07] MEDS: dextrose 5%-water 1,000 ML IV SCH (11:10)
[2022-01-07] MEDS: NORMAL SALINE IV SCH (13:07)
[2022-01-07] MEDS: MIDAZOLAM IV SCH (13:07)
[2022-01-07] MEDS: vancomycin inj 500 MG in normal saline 100ml IV soln 100 ML IV SCH (15:32)
[2022-01-07] MEDS: Melatonin 3mg tablet PO SCH (20:37)
[2022-01-07] MEDS: insulin glargine (Lantus) pen - multi-dose SQ SCH (21:02)
[2022-01-08] VITALS (29 sets, daily range): BP systolic 99–149; BP diastolic 39–69
[2022-01-08] MEDS: dextrose 5%-water 1,000 ML IV SCH ×2 (02:20→17:44)
--- NOTE | 2022-01-08 03:13 | NUR ---
Wound vac chamber changed d/t being full.
[2022-01-08 03:22] LABS: ALANINE AMINOTRANSFERASE 37 U/L (12-78); ALBUMIN 1.9 G/DL (3.4-5.0); ALBUMIN/GLOBULIN RATIO 0.8 (1.1-1.5); ALKALINE PHOSPHATASE 53 IU/L (46-116); ANION GAP 17 (8-16); ASPARTATE AMINO TRANSFERASE 18 U/L (10-37); BILIRUBIN,TOTAL 0.3 MG/DL (0.1-1.0); CALCIUM 7.4 MG/DL (8.5-10.1); CHLORIDE 108 MMOL/L (99-107); CREATININE 2.14 MG/DL (0.40-0.90); GLUCOSE 158 MG/DL (70-104); MAGNESIUM 1.6 MG/DL (1.5-2.4); POTASSIUM 4.9 MMOL/L (3.5-5.1); SODIUM 143 MMOL/L (135-145); TOTAL CARBON DIOXIDE 18.5 MMOL/L (24-32); TOTAL PROTEIN 4.4 G/DL (6.4-8.2); eGFR 23 ML/MIN
[2022-01-08 03:39] LABS: BLOOD UREA NITROGEN 159 MG/DL (7-18); BUN/CREATININE RATIO 74.3 (6.6-38.0); PHOSPHORUS 9.2 MG/DL (2.3-4.5)
[2022-01-08 03:43] LABS: ABG BASE EXCESS -11.9 mmol/L (-2.0-2.0); ABG HCO3 14.1 mmol/L (22.0-26.0); ABG OXYGEN SATURATION 97.3 % (94-97); ABG PCO2 (T) 31.5 mmHg (32.0-45.0); ABG PO2 (T) 105.6 mmHg (75.0-100.0); ALLEN'S TEST POSITIVE; FCOHb 0.3 % (0.0-3.9); FMetHb 0.5 % (0.0-1.5); FO2Hb 96.5 % (94-97); PATIENT TEMPERATURE 36.5; TOTAL HEMOGLOBIN 9.7 G/dl (12.0-16.0)
[2022-01-08 04:07] LABS: BASOPHILS # (AUTO) 0.1 X10'3 (0-0.2); BASOPHILS % (AUTO) 0.7 % (0-1); EOSINOPHILS % (AUTO) 0 % (0-6); HEMATOCRIT 27.7 % (35.0-45.0); HEMOGLOBIN 8.7 g/dl (12.0-16.0); LYMPHOCYTES # (AUTO) 0.1 X10'3 (1.1-4.8); LYMPHOCYTES % (AUTO) 0.7 % (21-51); MEAN CORPUSCULAR HEMOGLOBIN 27.7 PG (27.0-31.0); MEAN CORPUSCULAR HGB CONC 31.4 g/dL (33.0-36.5); MEAN CORPUSCULAR VOLUME 88.4 FL (78-98); MEAN PLATELET VOLUME 12.7 FL (7.4-10.4); MONOCYTES # (AUTO) 0.2 X10'3 (0-0.9); NEUTROPHILS # (AUTO) 15.2 X10'3 (1.8-7.7); NEUTROPHILS % (AUTO) 97.6 % (42-75); PLATELET COUNT 78 X10'3 (140-440); RED BLOOD COUNT 3.13 X10'6 (4.20-5.60); RED CELL DISTRIBUTION WIDTH 20.7 % (11.5-14.5); WHITE BLOOD COUNT 15.6 X10'3 (4.5-11.0)
--- NOTE | 2022-01-08 04:24 | NUR ---
Contacted Doctor to notify of decreasing bicarb over past few days. Doctor advised to wait the physicians to round in AM for decision.
[2022-01-08 04:29] LABS: PLATELET ESTIMATE DECREASED; TOTAL CELLS COUNTED 100
[2022-01-08 04:30] LABS: ANISOCYTOSIS 3+; LARGE PLATELETS FEW; SCHISTOCYTES 1+
[2022-01-08] MEDS: lactose-reduced food (Ensure Enlive) - 237ml bottle PO SCH ×3 (08:00→18:00)
[2022-01-08] MEDS: Dakins solution (1/4 strength) 473ml solution TP SCH (08:00)
[2022-01-08] MEDS: ARIPIPRAZOLE 10 MG TABLET PO SCH (08:10)
[2022-01-08] MEDS: nicotine 14mg patch - 24hr TD SCH (08:10)
[2022-01-08] MEDS: lansoprazole 15mg solutab PO SCH (08:11)
[2022-01-08] MEDS: metoprolol tartrate 25mg tablet PO SCH ×2 (08:11→20:38)
[2022-01-08] MEDS: lactobacillus rhamnosus 10,000 MMU CELLS/CAPSULE NG SCH ×2 (08:11→20:38)
[2022-01-08] MEDS: methylPREDNISolone sod succ 125mg/2ml vial IV SCH (08:11)
[2022-01-08] MEDS: loratadine 10mg tablet PO SCH (08:11)
[2022-01-08] MEDS: nystatin 15 GM powder TP SCH ×3 (08:12→21:48)
[2022-01-08] MEDS: QUEtiapine 25mg tablet PO SCH ×2 (08:12→20:38)
[2022-01-08] MEDS: venlafaxine 37.5mg tablet PO SCH ×2 (08:12→20:38)
[2022-01-08] MEDS: heparin, porcine 5000 units/ml vial SQ SCH ×2 (08:27→20:38)
[2022-01-08] MEDS: budesonide 0.5mg/2ml UD nebule IH SCH ×2 (09:09→19:43)
[2022-01-08] MEDS: ipratropium/albuterol 3ml nebule NEB PRN ×2 (09:09→15:38)
[2022-01-08] MEDS: bumetanide 0.25mg/ml 4ml vial IV SCH (09:45)
[2022-01-08] MEDS: meropenem inj 500 MG in normal saline 100ml IV soln 100 ML IV SCH ×2 (09:59→20:00)
--- NOTE | 2022-01-08 11:26 | NUR ---
F/u 01/08: Pt tolerating TF at goal GRV WNL continues to receive D5 at 75ml/hr providing 306 kcals/day w/ serum Na 143mmol/L this AM per EMR. Jone BID recommended w/ current free water flushes for abdomen surgical wound healing MD notified; recs below. Pt continues to have elevated rectal tube output visualized over 500ml in bag this AM w/ no documentation of output yesterday though consistently over 1L. RD d/w MD; temporary imodium to start today per MD. RD d/w Phos 9.2mg/dl this AM increasing w/ no Phos-binder; binder to not start at this time though may need in future working towards extubation today per MD at rounds. Will monitor for further nutrition intervention needs. Recommendations: 1. Given D5 at 75 mL/hr (306 kcal/day), continuous Vital HP at 50 mL/hr to provide 1200 mL total volume/day, 1200 kcal, 105 g protein, and 1003 mL water 2. IF D5 discontinued, continuous Vital AF with 55 mL/hr goal rate to provide 1320 mL total volume/day, 1584 kcal, 99 g protein, and 1071 mL water 3. Additional 200 mL water flush Q4H; monitor serum Na; no changes to water flushes at this time per MD 4. Jone packet BID w/ free water flushes for wound healing needs; pending MD verification in EMR 5. routine anti-diarrheal; consistently over 1L rectal tube output 6. Prealbumin q Wednesday/; Daily scaled weights 7. Diet advancement to regular as medically indicated following extubation w/ f/u CLOTH BLEACHING RANGE TENDER BSS; continue with NGTF until pt with consistent adequate PO meal intake Addendum: 01/08/22 at [address] Amended: Links added.
[2022-01-08] MEDS: LOPERAMIDE 2 mg/15 ml oral solution UD NG SCH (14:19)
[2022-01-08] MEDS ORDERED: VANCOMYCIN LEVEL IV ONE (14:30)
[2022-01-08] MEDS: insulin regular, human U-100 3ml vial - multi-dose SQ SCH (15:10)
[2022-01-08] MEDS: vancomycin inj 500 MG in normal saline 100ml IV soln 100 ML IV SCH (15:33)
--- NOTE | 2022-01-08 15:58 | NUR ---
Pt extubated and placed on 3 pm nc. Pt coughing but refusing to let us suction her mouth. No stridor post extubation. Will cont to monitor Addendum: 01/08/22 at 1559 by Glenys Toussaint RT Amended: Links added.
--- NOTE | 2022-01-08 18:20 | NUR ---
Patient in room CICU 2009. I have received report from GERMAN CAROLINA and had the opportunity to ask questions and assume patient care.
--- NOTE | 2022-01-08 18:41 | NUR ---
Recieved verbal orders from Dr. Vasquez for BID IV Lasix 40mg. Once patient is able to swallow safely, Dr. Vasquez has said to change order to PO if lasix is still needed for patient.
[2022-01-08] MEDS: ipratropium/albuterol 3ml nebule NEB SCH (19:40)
[2022-01-08] MEDS ORDERED: ipratropium 0.5 MG/2.5ML nebule NEB SCH (20:00)
[2022-01-08] MEDS ORDERED: ARGININE/GLUTAMINE/CALCIUM BMB (JUVEN 19.3GM PKT) 1 EACH POWD.PACK PO SCH (20:00)
[2022-01-08] MEDS: Melatonin 3mg tablet PO SCH (20:37)
[2022-01-08] MEDS: furosemide 40mg/4ml inj IV SCH (20:38)
[2022-01-08] MEDS: insulin glargine (Lantus) pen - multi-dose SQ SCH (21:00)
[2022-01-09] VITALS (24 sets, daily range): BP systolic 107–170; BP diastolic 38–82
[2022-01-09] MEDS: dextrose 5%-water 1,000 ML IV SCH (03:10)
[2022-01-09 03:22] LABS: BASOPHILS % (AUTO) 0.3 % (0-1); EOSINOPHILS % (AUTO) 0.2 % (0-6); HEMATOCRIT 27.7 % (35.0-45.0); HEMOGLOBIN 8.9 g/dl (12.0-16.0); LYMPHOCYTES # (AUTO) 0.3 X10'3 (1.1-4.8); LYMPHOCYTES % (AUTO) 1.7 % (21-51); MEAN CORPUSCULAR HEMOGLOBIN 28.7 PG (27.0-31.0); MEAN CORPUSCULAR HGB CONC 32.3 g/dL (33.0-36.5); MEAN CORPUSCULAR VOLUME 89.1 FL (78-98); MEAN PLATELET VOLUME 12.7 FL (7.4-10.4); MONOCYTES # (AUTO) 0.2 X10'3 (0-0.9); MONOCYTES % (AUTO) 1.3 % (2-12); NEUTROPHILS # (AUTO) 14.4 X10'3 (1.8-7.7); NEUTROPHILS % (AUTO) 96.5 % (42-75); PLATELET COUNT 66 X10'3 (140-440); RED BLOOD COUNT 3.11 X10'6 (4.20-5.60); RED CELL DISTRIBUTION WIDTH 20.9 % (11.5-14.5)
[2022-01-09 03:29] LABS: ALANINE AMINOTRANSFERASE 41 U/L (12-78); ALBUMIN 1.8 G/DL (3.4-5.0); ALBUMIN/GLOBULIN RATIO 0.7 (1.1-1.5); ALKALINE PHOSPHATASE 58 IU/L (46-116); ANION GAP 10 (8-16); ASPARTATE AMINO TRANSFERASE 21 U/L (10-37); BILIRUBIN,TOTAL 0.3 MG/DL (0.1-1.0); CALCIUM 7.3 MG/DL (8.5-10.1); CHLORIDE 108 MMOL/L (99-107); CREATININE 2.07 MG/DL (0.40-0.90); GLUCOSE 95 MG/DL (70-104); MAGNESIUM 1.5 MG/DL (1.5-2.4); POTASSIUM 4.8 MMOL/L (3.5-5.1); SODIUM 138 MMOL/L (135-145); TOTAL PROTEIN 4.4 G/DL (6.4-8.2); eGFR 24 ML/MIN
[2022-01-09 03:36] LABS: ANISOCYTOSIS 3+; LARGE PLATELETS FEW; PLATELET ESTIMATE DECREASED
[2022-01-09 03:37] LABS: SCHISTOCYTES 1+
[2022-01-09 03:38] LABS: BLOOD UREA NITROGEN 160 MG/DL (7-18); BUN/CREATININE RATIO 77.3 (6.6-38.0); PHOSPHORUS 9.4 MG/DL (2.3-4.5)
--- NOTE | 2022-01-09 05:42 | NUR ---
Patient has coarse and crackles throughout lungs. She also has edema in extremities. BID lasix is ordered and will continue to track I&O's. Dr. Vasquez has said it is better to keep torres in for now d/t to patient still not taking an active role in her health by coughing, using IS and flutter valve. Still flat affect and continues to answer only some questions while occasionally making eye contact.
[2022-01-09] MEDS: budesonide 0.5mg/2ml UD nebule IH SCH ×2 (07:53→19:56)
[2022-01-09] MEDS: ipratropium/albuterol 3ml nebule NEB SCH ×6 (07:53→22:47)
[2022-01-09] MEDS: Dakins solution (1/4 strength) 473ml solution TP SCH (08:00)
[2022-01-09] MEDS: lactose-reduced food (Ensure Enlive) - 237ml bottle PO SCH ×2 (08:00→13:00)
[2022-01-09] MEDS: furosemide 40mg/4ml inj IV SCH ×2 (08:38→20:12)
[2022-01-09] MEDS: venlafaxine 37.5mg tablet PO SCH (08:38)
[2022-01-09] MEDS: methylPREDNISolone sod succ/PF 40mg inj. IV SCH (08:38)
[2022-01-09] MEDS: lactobacillus rhamnosus 10,000 MMU CELLS/CAPSULE NG SCH ×2 (08:39→20:11)
[2022-01-09] MEDS: QUEtiapine 25mg tablet PO SCH (08:39)
[2022-01-09] MEDS: metoprolol tartrate 25mg tablet PO SCH ×2 (08:39→20:11)
[2022-01-09] MEDS: ARIPIPRAZOLE 10 MG TABLET PO SCH (08:39)
[2022-01-09] MEDS: loratadine 10mg tablet PO SCH (08:39)
[2022-01-09] MEDS: nystatin 15 GM powder TP SCH ×3 (08:40→21:16)
[2022-01-09] MEDS: heparin, porcine 5000 units/ml vial SQ SCH ×2 (08:41→20:12)
[2022-01-09] MEDS: LOPERAMIDE 2 mg/15 ml oral solution UD NG SCH (08:44)
[2022-01-09] MEDS: lansoprazole 15mg solutab PO SCH (08:44)
[2022-01-09] MEDS: meropenem inj 500 MG in normal saline 100ml IV soln 100 ML IV SCH ×2 (08:44→20:10)
[2022-01-09] MEDS ORDERED: nicotine 7mg patch - 24hr TD ONE (09:00)
--- NOTE | 2022-01-09 12:49 | NUR ---
F/u 01/09: Pt extubated yesterday tolerating NGTF at goal receiving routine loperamide. Pt does not allow anything into her mouth at this time per RT at rounds; remains NPO besides EN. Rectal tube output not documented visualized ~750mL stool in bag during rounds though not much output w/ rectal tube to be pulled today per RN. Supervisor [employer] is agreeable to EN adjustment given extubation w/ persistent diarrhea; updated recs below. Pt receiving D5 at 75ml/hr w/ serum Na 138mmol/L this AM; D5 to stop per MD at rounds. Phos 9.4mg/dl this AM to start phos binder per MD at rounds. Will monitor for TF tolerance and further nutrition intervention needs. Recommendations: 1. Continuous TF per MD using Jevity 1.2 at 55mL/hr goal; to provide 1320mL volume/day, 1584 kcals, 73g protein, and 1065mL water. Initiate at 55ml/hr since tolerating prior 50ml/hr rate. 2. Additional 200 mL water flush Q4H; monitor serum Na; no changes to water flushes at this time per MD 3. Jone packet BID w/ free water flushes for wound healing needs; pending MD verification in EMR 4. routine anti-diarrheal per MD; consistently over 1L rectal tube output 5. Prealbumin q Wednesday/; Daily scaled weights 6. advance diet to regular as medically indicated per FREIGHT RATE ANALYST/MD recs FREIGHT RATE ANALYST; continue with NGTF until pt with consistent adequate PO meal intake Addendum: 01/09/22 at [address] Amended: Links added.
[2022-01-09] MEDS: sevelamer carbonate 0.8gm powder pkt NG SCH ×2 (12:53→18:00)
[2022-01-09] MEDS: NORMAL SALINE IV SCH (13:07)
[2022-01-09] MEDS: MIDAZOLAM IV SCH (13:07)
[2022-01-09] MEDS ORDERED: ARIPIPRAZOLE 10 MG TABLET CORPAK SCH (14:40)
[2022-01-09] MEDS ORDERED: acetaminophen 325mg/10.15ml oral unit dose solution NG PRN (14:43)
[2022-01-09] MEDS ORDERED: oxyCODONE/APAP 10/325mg tablet NG PRN (14:45)
[2022-01-09] MEDS ORDERED: DEXTROSE 15 GM of carb/4 tabs (each vial/BOTTLE has 4 tablets) NG PRN ×2 (14:45→14:58)
[2022-01-09] MEDS ORDERED: midodrine 5mg tablet NG PRN (14:47)
--- NOTE | 2022-01-09 16:15 | NUR ---
Metaneb done with pt. Poorly tolerated as far as her wanting to pull the mask off. Dr. Vasquez at bedside and is aware. Pt again encouraged to deep breathe and cough, however she just looks at us and ignores us. Dr. Vasquez applied a little pressure to the bottom of the pt's rib cage bilaterally then instructed the pt to take deep breathes. By doing this we are forcing the pt to use her diaphragm and work to hopefully gain some strength. Dr. Vasquez would like RT/RN to work together to do this with her as well, periodically as tolerated. Addendum: 01/09/22 at 1619 by Glenys Toussaint RT Amended: Links added.
[2022-01-09] MEDS: vancomycin inj 500 MG in normal saline 100ml IV soln 100 ML IV SCH (16:54)
[2022-01-09] MEDS: lactose-reduced food (Ensure Enlive) - 237ml bottle NG SCH (18:00)
--- NOTE | 2022-01-09 18:30 | NUR ---
Patient in room CICU 2009. I have received report from Manjeet CAROLINA and had the opportunity to ask questions and assume patient care.
--- NOTE | 2022-01-09 18:46 | NUR ---
Patients torres has been removed. Placed purwick upon assuming care of patient. Q4 hrs bladder scans per Dr. Vasquez for urine retention and peripheral edema
--- NOTE | 2022-01-09 20:00 | NUR ---
Bladder scan complete, 410mls has been seen in bladder with zero output from purwick so far nor bed linen saturated.
[2022-01-09] MEDS: venlafaxine 37.5mg tablet NG SCH (20:10)
[2022-01-09] MEDS: Melatonin 3mg tablet NG SCH (20:10)
[2022-01-09] MEDS: QUEtiapine 25mg tablet NG SCH (20:11)
[2022-01-09] MEDS: insulin glargine (Lantus) pen - multi-dose SQ SCH (21:00)
--- NOTE | 2022-01-09 22:30 | NUR ---
Patients purewick was not effective. Bed change was necessary and there was a mixture of urine and feces. Concerned for skin breakdown. She is still resistive to oral care of any kind and rarely answers questions, avoids eye contact as well.
[2022-01-10] VITALS (27 sets, daily range): BP systolic 109–180; BP diastolic 38–117
[2022-01-10 03:15] LABS: BASOPHILS % (AUTO) 0.1 % (0-1); HEMATOCRIT 29.4 % (35.0-45.0); LYMPHOCYTES # (AUTO) 0.2 X10'3 (1.1-4.8); MONOCYTES # (AUTO) 0.2 X10'3 (0-0.9)
[2022-01-10 03:16] LABS: EOSINOPHILS % (AUTO) 0.3 % (0-6); HEMOGLOBIN 9.4 g/dl (12.0-16.0); LYMPHOCYTES % (AUTO) 1.5 % (21-51); MEAN CORPUSCULAR HEMOGLOBIN 28.3 PG (27.0-31.0); MEAN CORPUSCULAR HGB CONC 32.1 g/dL (33.0-36.5); MEAN CORPUSCULAR VOLUME 88.2 FL (78-98); MEAN PLATELET VOLUME 14.1 FL (7.4-10.4); MONOCYTES % (AUTO) 1.4 % (2-12); NEUTROPHILS # (AUTO) 13.9 X10'3 (1.8-7.7); NEUTROPHILS % (AUTO) 96.7 % (42-75); PLATELET COUNT 77 X10'3 (140-440); RED BLOOD COUNT 3.33 X10'6 (4.20-5.60); RED CELL DISTRIBUTION WIDTH 21.2 % (11.5-14.5); WHITE BLOOD COUNT 14.4 X10'3 (4.5-11.0)
[2022-01-10 03:32] LABS: ALANINE AMINOTRANSFERASE 46 U/L (12-78); ALBUMIN 1.9 G/DL (3.4-5.0); ALBUMIN/GLOBULIN RATIO 0.7 (1.1-1.5); ALKALINE PHOSPHATASE 68 IU/L (46-116); ANION GAP 18 (8-16); ASPARTATE AMINO TRANSFERASE 27 U/L (10-37); BILIRUBIN,TOTAL 0.3 MG/DL (0.1-1.0); CALCIUM 7.3 MG/DL (8.5-10.1); CHLORIDE 109 MMOL/L (99-107); CREATININE 1.84 MG/DL (0.40-0.90); GLUCOSE 106 MG/DL (70-104); MAGNESIUM 1.7 MG/DL (1.5-2.4); POTASSIUM 4.9 MMOL/L (3.5-5.1); SODIUM 146 MMOL/L (135-145); TOTAL CARBON DIOXIDE 18.7 MMOL/L (24-32); TOTAL PROTEIN 4.6 G/DL (6.4-8.2); eGFR 28 ML/MIN
[2022-01-10] MEDS: ipratropium/albuterol 3ml nebule NEB SCH ×6 (03:51→22:48)
[2022-01-10 04:07] LABS: BLOOD UREA NITROGEN 160 MG/DL (7-18)
[2022-01-10 04:08] LABS: PHOSPHORUS 10.1 MG/DL (2.3-4.5)
[2022-01-10] MEDS: lactobacillus rhamnosus 10,000 MMU CELLS/CAPSULE NG SCH ×2 (08:00→20:03)
[2022-01-10] MEDS ORDERED: sod chloride 0.9% 10ml flush syringe IV ONE (08:00)
[2022-01-10] MEDS ORDERED: rocuronium 10mg/ml inj IV ONE (08:00)
[2022-01-10] MEDS: lactose-reduced food (Ensure Enlive) - 237ml bottle NG SCH ×3 (08:00→18:00)
[2022-01-10] MEDS ORDERED: etomidate 2mg/ml inj. ONE (08:00)
[2022-01-10] MEDS: ARIPIPRAZOLE 10 MG TABLET NG SCH (09:15)
[2022-01-10] MEDS: metoprolol tartrate 25mg tablet PO SCH ×2 (09:15→20:03)
[2022-01-10] MEDS: loratadine 10mg tablet NG SCH (09:16)
[2022-01-10] MEDS: lansoprazole 15mg solutab NG SCH (09:17)
[2022-01-10] MEDS: venlafaxine 37.5mg tablet NG SCH ×2 (09:17→20:03)
[2022-01-10] MEDS: nicotine 7mg patch - 24hr TD SCH (09:18)
[2022-01-10] MEDS: QUEtiapine 25mg tablet NG SCH ×2 (09:18→20:04)
[2022-01-10] MEDS: sevelamer carbonate 0.8gm powder pkt NG SCH ×3 (09:18→16:47)
[2022-01-10] MEDS: methylPREDNISolone sod succ/PF 40mg inj. IV SCH (09:19)
[2022-01-10] MEDS: furosemide 40mg/4ml inj IV SCH ×2 (09:19→20:03)
[2022-01-10] MEDS: heparin, porcine 5000 units/ml vial SQ SCH ×2 (09:19→20:04)
[2022-01-10] MEDS: dextrose 5%-water 1,000 ML IV SCH ×2 (09:26→09:31)
[2022-01-10] MEDS: nystatin 15 GM powder TP SCH ×3 (09:26→20:05)
[2022-01-10] MEDS: Dakins solution (1/4 strength) 473ml solution TP SCH (09:26)
[2022-01-10] MEDS: meropenem inj 500 MG in normal saline 100ml IV soln 100 ML IV SCH ×2 (09:29→20:23)
[2022-01-10] MEDS: budesonide 0.5mg/2ml UD nebule IH SCH ×2 (11:19→19:42)
[2022-01-10] MEDS ORDERED: VANCOMYCIN LEVEL IV ONE (14:30)
--- NOTE | 2022-01-10 16:27 | NUR ---
Notified MD of pt's right arm swelliing. Orders received.
[2022-01-10] MEDS: insulin regular, human U-100 3ml vial - multi-dose SQ SCH ×2 (16:43→20:18)
[2022-01-10] MEDS: acetaminophen 1,000mg/100ml IV 100 ML IV PRN (17:10)
[2022-01-10] MEDS: ARGININE/GLUTAMINE/CALCIUM BMB (JUVEN 19.3GM PKT) 1 EACH POWD.PACK NG SCH (20:04)
[2022-01-10] MEDS: Melatonin 3mg tablet NG SCH (20:28)
[2022-01-10] MEDS: insulin glargine (Lantus) pen - multi-dose SQ SCH (20:29)
[2022-01-11] VITALS (36 sets, daily range): BP systolic 81–178; BP diastolic 34–82
[2022-01-11] MEDS: insulin regular, human U-100 3ml vial - multi-dose SQ SCH ×3 (02:46→21:42)
[2022-01-11 03:00] LABS: LYMPHOCYTES # (AUTO) 0.2 X10'3 (1.1-4.8); MEAN CORPUSCULAR HGB CONC 32.6 g/dL (33.0-36.5); MEAN PLATELET VOLUME 12.5 FL (7.4-10.4)
[2022-01-11 03:01] LABS: BASOPHILS % (AUTO) 0.1 % (0-1); EOSINOPHILS % (AUTO) 0.3 % (0-6); HEMOGLOBIN 9.5 g/dl (12.0-16.0); LYMPHOCYTES % (AUTO) 1.5 % (21-51); MEAN CORPUSCULAR HEMOGLOBIN 28.9 PG (27.0-31.0); MEAN CORPUSCULAR VOLUME 88.6 FL (78-98); MONOCYTES # (AUTO) 0.2 X10'3 (0-0.9); MONOCYTES % (AUTO) 1.6 % (2-12); NEUTROPHILS # (AUTO) 10.5 X10'3 (1.8-7.7); NEUTROPHILS % (AUTO) 96.5 % (42-75); PLATELET COUNT 67 X10'3 (140-440); RED BLOOD COUNT 3.27 X10'6 (4.20-5.60); RED CELL DISTRIBUTION WIDTH 21.1 % (11.5-14.5); WHITE BLOOD COUNT 10.9 X10'3 (4.5-11.0)
[2022-01-11] MEDS: ipratropium/albuterol 3ml nebule NEB SCH ×6 (03:30→23:08)
[2022-01-11 03:36] LABS: ALANINE AMINOTRANSFERASE 46 U/L (12-78); ALBUMIN 1.8 G/DL (3.4-5.0); ALBUMIN/GLOBULIN RATIO 0.6 (1.1-1.5); ALKALINE PHOSPHATASE 77 IU/L (46-116); ANION GAP 15 (8-16); ASPARTATE AMINO TRANSFERASE 28 U/L (10-37); BILIRUBIN,TOTAL 0.3 MG/DL (0.1-1.0); BLOOD UREA NITROGEN 146 MG/DL (7-18); BUN/CREATININE RATIO 80.7 (6.6-38.0); CALCIUM 7.3 MG/DL (8.5-10.1); CHLORIDE 107 MMOL/L (99-107); CREATININE 1.81 MG/DL (0.40-0.90); GLUCOSE 211 MG/DL (70-104); MAGNESIUM 1.6 MG/DL (1.5-2.4); PHOSPHORUS 8.8 MG/DL (2.3-4.5); POTASSIUM 5.1 MMOL/L (3.5-5.1); SODIUM 141 MMOL/L (135-145); TOTAL CARBON DIOXIDE 19.5 MMOL/L (24-32); TOTAL PROTEIN 4.6 G/DL (6.4-8.2); eGFR 28 ML/MIN
[2022-01-11] MEDS: hydrALAZINE 20mg/ml inj. IV PRN (04:00)
[2022-01-11] MEDS: dextrose 5%-water 1,000 ML IV SCH ×2 (04:17→18:30)
[2022-01-11 05:05] LABS: ABG BASE EXCESS -9.1 mmol/L (-2.0-2.0); ABG HCO3 16.7 mmol/L (22.0-26.0); ABG OXYGEN SATURATION 96.1 % (94-97); ABG PCO2 (T) 35.3 mmHg (32.0-45.0); ABG PO2 (T) 84.5 mmHg (75.0-100.0); ALLEN'S TEST POSITIVE; FCOHb 0.3 % (0.0-3.9); FMetHb 0.4 % (0.0-1.5); FO2Hb 95.4 % (94-97); PATIENT TEMPERATURE 36.4; PEEP 5 cm H2O; RESPIRATORY RATE 16 b/min; TIDAL VOLUME 450 mL; TOTAL HEMOGLOBIN 11.8 G/dl (12.0-16.0)
--- NOTE | 2022-01-11 05:30 | NUR ---
Took over pt care after intubation
--- NOTE | 2022-01-11 05:30 | NUR ---
Patients vitals were stable throughout the shift. Patient had weak, non-productive cough and was resistant to suction. Suctioned patient several times. Patient was able to say "yes" and lightly squeeze my hand but otherwise had poor mentation (not new). Patient became bradycardiac at approximately 04:15. Upon entering the room, patient was agonal breathing and shortly after started turning blue with saturations in the 70s. RT began bagging immediately and charge loader administered atropine for bradycardia. saturations and heart rate both improved. ICU MD was notified and gave instructions to intubate patient. RT deep suctioned and removed a large mucus plug and moderate amount of secretions. ED physician arrived bedside and intubated patient successfully once intubation meds were given. CXR completed. Patient is currently stable. Ritesh has been placed for strict I/Os. Called patients with no answer. Will call again before I leave to give update.
--- NOTE | 2022-01-11 05:46 | NUR ---
updated the patients sister, Enriqueta.
[2022-01-11] MEDS: midazolam 100mg in NS 100ml 100 ML IV PRN (05:54)
[2022-01-11] MEDS: FENTANYL-0.9 % NACL/PF 100 ML IV PRN (05:55)
--- NOTE | 2022-01-11 06:45 | NUR ---
RN Note -Family Communication Spoke with Jasvir over the phone. Updated on pt condition and plan of care
--- NOTE | 2022-01-11 07:18 | NUR ---
Patient in room [facility] 2009. I have received report from Kathy ADAN RN and had the opportunity to ask questions and assume patient care. Addendum: 01/11/22 at 4493 by Cally Felix RN Amended: Links added.
--- NOTE | 2022-01-11 07:39 | NUR ---
Reassessment: Pt continues to receive TF at goal and tolerating, however pt was reintubated this morning per documentation. Will update TF recs below given new adjusted needs on the vent. Pt also receiving Jone packets w/ TF to assist w/ wound healing. Documented w/ 300ml stool output 01/10. Will continue to monitor. Recommendations: 1. Continuous TF per MD using Vital HP at 50ml/hr to provide 1200ml volume, 1200kcals, 105g protein, 1003ml free water 2. Additional 200 mL water flush Q4H; monitor serum Na; no changes to water flushes at this time per MD 3. Discontinue D5 if MD agreeable while pt on TF 4. Jone packet BID w/ free water flushes for wound healing needs 5. routine anti-diarrheal per MD; consistently over 1L rectal tube output 6. Prealbumin q Wednesday/; Daily scaled weights 7. advance diet to regular as medically indicated per ROW BOSS/MD recs ROW BOSS; continue with NGTF until pt with consistent adequate PO meal intake Addendum: 01/11/22 at [address] Amended: Links added.
[2022-01-11] MEDS: Dakins solution (1/4 strength) 473ml solution TP SCH (08:00)
[2022-01-11] MEDS: metoprolol tartrate 25mg tablet PO SCH (08:00)
[2022-01-11] MEDS: ARGININE/GLUTAMINE/CALCIUM BMB (JUVEN 19.3GM PKT) 1 EACH POWD.PACK NG SCH ×2 (08:00→20:59)
[2022-01-11] MEDS: lactose-reduced food (Ensure Enlive) - 237ml bottle NG SCH ×3 (08:00→18:00)
[2022-01-11] MEDS: sevelamer carbonate 0.8gm powder pkt NG SCH ×3 (08:00→18:04)
[2022-01-11] MEDS: nicotine 7mg patch - 24hr TD SCH (08:00)
[2022-01-11] MEDS: meropenem inj 500 MG in normal saline 100ml IV soln 100 ML IV SCH ×2 (08:11→20:57)
[2022-01-11] MEDS: furosemide 40mg/4ml inj IV SCH ×2 (08:11→20:57)
[2022-01-11] MEDS: methylPREDNISolone sod succ/PF 40mg inj. IV SCH (08:12)
[2022-01-11] MEDS: heparin, porcine 5000 units/ml vial SQ SCH ×2 (08:12→20:57)
[2022-01-11] MEDS: ARIPIPRAZOLE 10 MG TABLET NG SCH (08:12)
[2022-01-11] MEDS: loratadine 10mg tablet NG SCH (08:12)
[2022-01-11] MEDS: lactobacillus rhamnosus 10,000 MMU CELLS/CAPSULE NG SCH ×2 (08:12→20:57)
[2022-01-11] MEDS: lansoprazole 15mg solutab NG SCH (08:12)
[2022-01-11] MEDS: QUEtiapine 25mg tablet NG SCH ×2 (08:12→20:57)
[2022-01-11] MEDS: nystatin 15 GM powder TP SCH ×3 (08:19→21:00)
[2022-01-11] MEDS: venlafaxine 37.5mg tablet NG SCH ×2 (08:20→20:58)
[2022-01-11] MEDS ORDERED: NORepinephrine inj. 8 MG in dextrose 5%-water 242 ML IV SCH (09:05)
[2022-01-11] MEDS: budesonide 0.5mg/2ml UD nebule IH SCH ×2 (09:09→21:01)
--- NOTE | 2022-01-11 09:10 | NUR ---
RN called Dr. Vasquez about low BP. Order rec'd for Levo.
[2022-01-11] MEDS: NORepinephrine 8mg/ 250ml NS 250 ML IV SCH (09:34)
[2022-01-11] MEDS ORDERED: mineral oil/petrolatum ophthal oint EACHEYE PRN (13:05)
[2022-01-11] MEDS: mineral oil/petrolatum ophthal oint EACHEYE SCH (13:19)
--- NOTE | 2022-01-11 16:44 | NUR ---
Bronchoscopy done per Dr. Vasquez to assess anatomy for trach tomorrow and to assess for need to remove any mucus plug.
--- NOTE | 2022-01-11 18:13 | NUR ---
Problems reprioritized. Patient report given, questions answered & plan of care reviewed with Kathy Zuleta) CAITY.
[2022-01-11] MEDS: metoprolol tartrate 25mg tablet NG SCH (20:00)
[2022-01-11] MEDS: Melatonin 3mg tablet NG SCH (20:59)
[2022-01-11] MEDS: insulin glargine (Lantus) pen - multi-dose SQ SCH (21:44)
[2022-01-12] VITALS (37 sets, daily range): BP systolic 100–160; BP diastolic 37–80
[2022-01-12] MEDS: NORepinephrine 8mg/ 250ml NS 250 ML IV SCH ×2 (02:08→18:46)
[2022-01-12 03:07] LABS: ABG BASE EXCESS -9.8 mmol/L (-2.0-2.0); ABG HCO3 14.7 mmol/L (22.0-26.0); ABG OXYGEN SATURATION 92.7 % (94-97); ABG PCO2 (T) 27.7 mmHg (32.0-45.0); ABG PO2 (T) 70.3 mmHg (75.0-100.0); ALLEN'S TEST POSITIVE; FCOHb 0.3 % (0.0-3.9); FMetHb 0.4 % (0.0-1.5); FO2Hb 92.1 % (94-97); PATIENT TEMPERATURE 36.9; PEEP 8 cm H2O; RESPIRATORY RATE 16 b/min; TIDAL VOLUME 450 mL
[2022-01-12] MEDS: ipratropium/albuterol 3ml nebule NEB SCH ×6 (03:12→23:07)
[2022-01-12] MEDS: dextrose 5%-water 1,000 ML IV SCH (03:25)
[2022-01-12 03:50] LABS: EOSINOPHILS # (AUTO) 0.1 X10'3 (0-0.9); HEMOGLOBIN 8.7 g/dl (12.0-16.0); MONOCYTES # (AUTO) 0.2 X10'3 (0-0.9); NEUTROPHILS % (AUTO) 94.2 % (42-75)
[2022-01-12 03:52] LABS: BASOPHILS % (AUTO) 0 % (0-1); EOSINOPHILS % (AUTO) 1.2 % (0-6); HEMATOCRIT 26.4 % (35.0-45.0); LYMPHOCYTES # (AUTO) 0.3 X10'3 (1.1-4.8); LYMPHOCYTES % (AUTO) 2.7 % (21-51); MEAN CORPUSCULAR HEMOGLOBIN 28.7 PG (27.0-31.0); MEAN CORPUSCULAR HGB CONC 32.8 g/dL (33.0-36.5); MEAN CORPUSCULAR VOLUME 87.6 FL (78-98); MEAN PLATELET VOLUME 12.6 FL (7.4-10.4); MONOCYTES % (AUTO) 1.9 % (2-12); PLATELET COUNT 69 X10'3 (140-440); RED BLOOD COUNT 3.01 X10'6 (4.20-5.60); RED CELL DISTRIBUTION WIDTH 20.7 % (11.5-14.5); WHITE BLOOD COUNT 9.6 X10'3 (4.5-11.0)
[2022-01-12 04:06] LABS: ALANINE AMINOTRANSFERASE 44 U/L (12-78); ALBUMIN 1.6 G/DL (3.4-5.0); ALBUMIN/GLOBULIN RATIO 0.6 (1.1-1.5); ALKALINE PHOSPHATASE 73 IU/L (46-116); ANION GAP 9 (8-16); ASPARTATE AMINO TRANSFERASE 25 U/L (10-37); BILIRUBIN,TOTAL 0.3 MG/DL (0.1-1.0); CALCIUM 7.1 MG/DL (8.5-10.1); CHLORIDE 106 MMOL/L (99-107); CREATININE 1.74 MG/DL (0.40-0.90); GLUCOSE 108 MG/DL (70-104); MAGNESIUM 1.5 MG/DL (1.5-2.4); PHOSPHORUS 8.5 MG/DL (2.3-4.5); POTASSIUM 5.1 MMOL/L (3.5-5.1); SODIUM 137 MMOL/L (135-145); TOTAL CARBON DIOXIDE 22.2 MMOL/L (24-32); TOTAL PROTEIN 4.2 G/DL (6.4-8.2); eGFR 29 ML/MIN
[2022-01-12 04:18] LABS: BLOOD UREA NITROGEN 158 MG/DL (7-18); BUN/CREATININE RATIO 90.8 (6.6-38.0)
[2022-01-12 05:10] LABS: ANISOCYTOSIS 3+; ELLIPTOCYTES FEW; PLATELET ESTIMATE DECREASED; POLYCHROMASIA FEW; SCHISTOCYTES FEW
[2022-01-12] MEDS: midazolam 100mg in NS 100ml 100 ML IV PRN (06:13)
[2022-01-12] MEDS: FENTANYL-0.9 % NACL/PF 100 ML IV PRN (06:13)
[2022-01-12] MEDS: methylPREDNISolone sod succ/PF 40mg inj. IV SCH (07:09)
[2022-01-12] MEDS: ARIPIPRAZOLE 10 MG TABLET NG SCH (07:09)
[2022-01-12] MEDS: QUEtiapine 25mg tablet NG SCH ×2 (07:10→19:53)
[2022-01-12] MEDS: lactobacillus rhamnosus 10,000 MMU CELLS/CAPSULE NG SCH ×2 (07:10→19:53)
[2022-01-12] MEDS: furosemide 40mg/4ml inj IV SCH ×2 (07:10→19:53)
[2022-01-12] MEDS: venlafaxine 37.5mg tablet NG SCH ×2 (07:10→19:52)
[2022-01-12] MEDS: lansoprazole 15mg solutab NG SCH (07:10)
[2022-01-12] MEDS: loratadine 10mg tablet NG SCH (07:10)
[2022-01-12] MEDS: nystatin 15 GM powder TP SCH ×3 (07:10→20:16)
[2022-01-12] MEDS: nicotine 7mg patch - 24hr TD SCH (07:11)
[2022-01-12] MEDS: meropenem inj 500 MG in normal saline 100ml IV soln 100 ML IV SCH (07:12)
[2022-01-12] MEDS: metoprolol tartrate 25mg tablet NG SCH ×2 (07:13→19:53)
[2022-01-12] MEDS: lactose-reduced food (Ensure Enlive) - 237ml bottle NG SCH ×2 (07:13→13:00)
[2022-01-12] MEDS: heparin, porcine 5000 units/ml vial SQ SCH ×2 (07:13→19:53)
--- NOTE | 2022-01-12 07:27 | NUR ---
TF turned off for possible Trach today.
[2022-01-12] MEDS: Dakins solution (1/4 strength) 473ml solution TP SCH (08:00)
[2022-01-12] MEDS: ARGININE/GLUTAMINE/CALCIUM BMB (JUVEN 19.3GM PKT) 1 EACH POWD.PACK NG SCH ×2 (08:00→19:53)
[2022-01-12] MEDS: sevelamer carbonate 0.8gm powder pkt NG SCH ×4 (08:00→21:54)
[2022-01-12] MEDS: budesonide 0.5mg/2ml UD nebule IH SCH ×2 (08:48→18:53)
--- NOTE | 2022-01-12 09:49 | NUR ---
Platelets infusing now. NPO for possible trach today per Dr. Vasquez. Dr. Vasquez to consult with Dr. Chip muñiz. wound vac dressing/retention sutures removal.
--- NOTE | 2022-01-12 12:23 | NUR ---
Tano Consult: Tano Moe w/ abdomen surgical wound otherwise skin intact per EMR. Pt receiving appropriate nutrition interventions for wound healing at this time. Addendum: 01/12/22 at [address] Amended: Links added.
[2022-01-12] MEDS: mineral oil/petrolatum ophthal oint EACHEYE SCH ×2 (13:16→19:52)
--- NOTE | 2022-01-12 14:25 | NUR ---
WOC RN in to change wound vac dressing.
--- NOTE | 2022-01-12 16:26 | NUR ---
RUE more swollen than left.
--- NOTE | 2022-01-12 16:44 | NUR ---
Dr. Vasquez calling Dr. Berman re. trach/PEG plan since pt. has an abdominal wound/incision.
--- NOTE | 2022-01-12 18:06 | NUR ---
Problems reprioritized. Patient report given, questions answered & plan of care reviewed with stan ZHANG RN.
--- NOTE | 2022-01-12 18:30 | NUR ---
Patient in room CICU 2009. I have received report from CAITY [place] and had the opportunity to ask questions and assume patient care.
[2022-01-12] MEDS: Melatonin 3mg tablet NG SCH (18:36)
[2022-01-12] MEDS: insulin regular, human U-100 3ml vial - multi-dose SQ SCH (20:14)
[2022-01-12] MEDS: insulin glargine (Lantus) pen - multi-dose SQ SCH (20:15)
[2022-01-13] VITALS (34 sets, daily range): BP systolic 119–173; BP diastolic 34–86
[2022-01-13] MEDS: dextrose 5%-water 1,000 ML IV SCH (00:18)
[2022-01-13] MEDS: mineral oil/petrolatum ophthal oint EACHEYE SCH ×2 (02:00→07:31)
[2022-01-13] MEDS: insulin regular, human U-100 3ml vial - multi-dose SQ SCH ×4 (02:41→21:01)
[2022-01-13 03:02] LABS: BASOPHILS % (AUTO) 0.1 % (0-1); EOSINOPHILS # (AUTO) 0.1 X10'3 (0-0.9); EOSINOPHILS % (AUTO) 0.9 % (0-6); HEMATOCRIT 22.4 % (35.0-45.0); HEMOGLOBIN 7.5 g/dl (12.0-16.0); LYMPHOCYTES # (AUTO) 0.2 X10'3 (1.1-4.8); LYMPHOCYTES % (AUTO) 2.8 % (21-51); MEAN CORPUSCULAR HEMOGLOBIN 28.9 PG (27.0-31.0); MEAN CORPUSCULAR HGB CONC 33.4 g/dL (33.0-36.5); MEAN CORPUSCULAR VOLUME 86.6 FL (78-98); MEAN PLATELET VOLUME 11.7 FL (7.4-10.4); MONOCYTES # (AUTO) 0.2 X10'3 (0-0.9); MONOCYTES % (AUTO) 2.3 % (2-12); NEUTROPHILS % (AUTO) 93.9 % (42-75); PLATELET COUNT 108 X10'3 (140-440); RED BLOOD COUNT 2.58 X10'6 (4.20-5.60); WHITE BLOOD COUNT 7.4 X10'3 (4.5-11.0)
[2022-01-13 03:17] LABS: ALANINE AMINOTRANSFERASE 48 U/L (12-78); ALBUMIN 1.6 G/DL (3.4-5.0); ALBUMIN/GLOBULIN RATIO 0.6 (1.1-1.5); ALKALINE PHOSPHATASE 66 IU/L (46-116); ANION GAP 12 (8-16); ASPARTATE AMINO TRANSFERASE 32 U/L (10-37); BILIRUBIN,TOTAL 0.3 MG/DL (0.1-1.0); CALCIUM 6.9 MG/DL (8.5-10.1); CHLORIDE 103 MMOL/L (99-107); GLUCOSE 113 MG/DL (70-104); MAGNESIUM 1.4 MG/DL (1.5-2.4); POTASSIUM 5.1 MMOL/L (3.5-5.1); SODIUM 136 MMOL/L (135-145); TOTAL CARBON DIOXIDE 20.9 MMOL/L (24-32); TOTAL PROTEIN 4.1 G/DL (6.4-8.2); eGFR 30 ML/MIN
[2022-01-13] MEDS: ipratropium/albuterol 3ml nebule NEB SCH ×6 (03:19→23:06)
[2022-01-13 03:35] LABS: ABG BASE EXCESS -4.2 mmol/L (-2.0-2.0); ABG OXYGEN SATURATION 95.8 % (94-97); ABG PCO2 (T) 32.1 mmHg (32.0-45.0); ABG PO2 (T) 79.9 mmHg (75.0-100.0); ALLEN'S TEST POSITIVE; FCOHb 0.4 % (0.0-3.9); FMetHb 0.1 % (0.0-1.5); FO2Hb 95.3 % (94-97); PATIENT TEMPERATURE 36.2; PEEP 8 cm H2O; RESPIRATORY RATE 16 b/min; TIDAL VOLUME 450 mL; TOTAL HEMOGLOBIN 8.6 G/dl (12.0-16.0)
[2022-01-13 03:39] LABS: ANISOCYTOSIS 3+; PLATELET ESTIMATE DECREASED; SCHISTOCYTES FEW
[2022-01-13 03:40] LABS: BLOOD UREA NITROGEN 162 MG/DL (7-18); BUN/CREATININE RATIO 95.3 (6.6-38.0); ELLIPTOCYTES FEW; LARGE PLATELETS FEW; POLYCHROMASIA FEW
--- NOTE | 2022-01-13 06:10 | NUR ---
Problems reprioritized. Patient report given, questions answered & plan of care reviewed with CAITY [place].
[2022-01-13] MEDS: magnesium 4gm in 100ml NS 100 ML IV PRN (06:24)
--- NOTE | 2022-01-13 06:31 | NUR ---
Patient in room CICU 2009. I have received report from Pearl CAROLINA and had the opportunity to ask questions and assume patient care. Mg 1.4. mag replacement begun now.
[2022-01-13] MEDS: venlafaxine 37.5mg tablet NG SCH ×2 (07:29→20:49)
[2022-01-13] MEDS: QUEtiapine 25mg tablet NG SCH ×2 (07:29→20:49)
[2022-01-13] MEDS: nicotine 7mg patch - 24hr TD SCH (07:29)
[2022-01-13] MEDS: lactobacillus rhamnosus 10,000 MMU CELLS/CAPSULE NG SCH ×2 (07:29→20:49)
[2022-01-13] MEDS: lansoprazole 15mg solutab NG SCH (07:29)
[2022-01-13] MEDS: methylPREDNISolone sod succ/PF 40mg inj. IV SCH (07:30)
[2022-01-13] MEDS: loratadine 10mg tablet NG SCH (07:30)
[2022-01-13] MEDS: metoprolol tartrate 25mg tablet NG SCH ×2 (07:30→20:49)
[2022-01-13] MEDS: ARIPIPRAZOLE 10 MG TABLET NG SCH (07:30)
[2022-01-13] MEDS: sevelamer carbonate 0.8gm powder pkt NG SCH ×3 (07:31→20:50)
[2022-01-13] MEDS: furosemide 40mg/4ml inj IV SCH ×2 (07:31→20:49)
[2022-01-13] MEDS: heparin, porcine 5000 units/ml vial SQ SCH ×2 (07:31→18:32)
[2022-01-13] MEDS: ARGININE/GLUTAMINE/CALCIUM BMB (JUVEN 19.3GM PKT) 1 EACH POWD.PACK NG SCH ×2 (07:31→20:49)
[2022-01-13] MEDS: nystatin 15 GM powder TP SCH ×3 (07:37→20:50)
[2022-01-13] MEDS: budesonide 0.5mg/2ml UD nebule IH SCH ×2 (07:55→19:01)
[2022-01-13] MEDS: Dakins solution (1/4 strength) 473ml solution TP SCH (08:00)
[2022-01-13] MEDS: NORepinephrine 8mg/ 250ml NS 250 ML IV SCH (11:24)
--- NOTE | 2022-01-13 12:40 | NUR ---
Jasvir (S.O.) at bedside. Asking to speak with cyanide case hardener. senior product development manager paged. Michelle here to speak with Jasvir.
--- NOTE | 2022-01-13 18:12 | NUR ---
Problems reprioritized. Patient report given, questions answered & plan of care reviewed with Pearl CAROLINA.
--- NOTE | 2022-01-13 18:30 | NUR ---
Patient in room CICU 2009. I have received report from CAITY [place] and had the opportunity to ask questions and assume patient care.
[2022-01-13] MEDS: Melatonin 3mg tablet NG SCH (18:33)
[2022-01-13] MEDS: insulin glargine (Lantus) pen - multi-dose SQ SCH (20:50)
[2022-01-14] VITALS (34 sets, daily range): BP systolic 116–178; BP diastolic 27–78
--- NOTE | 2022-01-14 02:55 | NUR ---
Larry Jerome DNP notified that patient is NPO for trach and BG was 75 despite holding lantus. MD ordered d5 NS at 70mls/hr.
[2022-01-14] MEDS: dextrose 5%-normal saline 1,000 ML IV SCH ×4 (03:09→23:46)
[2022-01-14] MEDS: NORepinephrine 8mg/ 250ml NS 250 ML IV SCH (03:10)
[2022-01-14 03:30] LABS: BASOPHILS % (AUTO) 0 % (0-1); EOSINOPHILS # (AUTO) 0.1 X10'3 (0-0.9); HEMATOCRIT 23.4 % (35.0-45.0); HEMOGLOBIN 7.8 g/dl (12.0-16.0); LYMPHOCYTES # (AUTO) 0.3 X10'3 (1.1-4.8); LYMPHOCYTES % (AUTO) 3.5 % (21-51); MEAN CORPUSCULAR HEMOGLOBIN 28.8 PG (27.0-31.0); MEAN CORPUSCULAR HGB CONC 33.2 g/dL (33.0-36.5); MEAN CORPUSCULAR VOLUME 86.8 FL (78-98); MEAN PLATELET VOLUME 11.7 FL (7.4-10.4); MONOCYTES # (AUTO) 0.2 X10'3 (0-0.9); MONOCYTES % (AUTO) 2.3 % (2-12); NEUTROPHILS # (AUTO) 6.8 X10'3 (1.8-7.7); NEUTROPHILS % (AUTO) 93.2 % (42-75); PLATELET COUNT 85 X10'3 (140-440); WHITE BLOOD COUNT 7.3 X10'3 (4.5-11.0)
[2022-01-14] MEDS: ipratropium/albuterol 3ml nebule NEB SCH ×6 (03:46→23:07)
[2022-01-14 03:52] LABS: ALANINE AMINOTRANSFERASE 62 U/L (12-78); ALBUMIN 1.7 G/DL (3.4-5.0); ALBUMIN/GLOBULIN RATIO 0.7 (1.1-1.5); ALKALINE PHOSPHATASE 76 IU/L (46-116); ANION GAP 13 (8-16); ASPARTATE AMINO TRANSFERASE 37 U/L (10-37); BILIRUBIN,TOTAL 0.3 MG/DL (0.1-1.0); CALCIUM 7.3 MG/DL (8.5-10.1); CHLORIDE 101 MMOL/L (99-107); CREATININE 1.68 MG/DL (0.40-0.90); GLUCOSE 80 MG/DL (70-104); MAGNESIUM 2.6 MG/DL (1.5-2.4); PHOSPHORUS 7.5 MG/DL (2.3-4.5); POTASSIUM 5.4 MMOL/L (3.5-5.1); SODIUM 135 MMOL/L (135-145); TOTAL CARBON DIOXIDE 20.6 MMOL/L (24-32); TOTAL PROTEIN 4.3 G/DL (6.4-8.2); eGFR 31 ML/MIN
[2022-01-14 04:04] LABS: BLOOD UREA NITROGEN 174 MG/DL (7-18); BUN/CREATININE RATIO 103.6 (6.6-38.0)
[2022-01-14 04:13] LABS: ABG BASE EXCESS -6.5 mmol/L (-2.0-2.0); ABG HCO3 17.1 mmol/L (22.0-26.0); ABG OXYGEN SATURATION 92.8 % (94-97); ABG PO2 (T) 68.2 mmHg (75.0-100.0); ALLEN'S TEST Modified; FCOHb 0.3 % (0.0-3.9); FMetHb 0.4 % (0.0-1.5); FO2Hb 92.2 % (94-97); PATIENT TEMPERATURE 37.1; PEEP 5 cm H2O; RESPIRATORY RATE 16 b/min; TIDAL VOLUME 450 mL; TOTAL HEMOGLOBIN 8.1 G/dl (12.0-16.0)
[2022-01-14] MEDS: midazolam 100mg in NS 100ml 100 ML IV PRN (04:28)
--- NOTE | 2022-01-14 06:07 | NUR ---
Problems reprioritized. Patient report given, questions answered & plan of care reviewed with Day shift RN.
[2022-01-14] MEDS: budesonide 0.5mg/2ml UD nebule IH SCH ×2 (07:09→19:22)
[2022-01-14] MEDS: ARGININE/GLUTAMINE/CALCIUM BMB (JUVEN 19.3GM PKT) 1 EACH POWD.PACK NG SCH ×2 (08:00→20:37)
[2022-01-14] MEDS: sevelamer carbonate 0.8gm powder pkt NG SCH ×3 (08:00→21:04)
[2022-01-14] MEDS: ARIPIPRAZOLE 10 MG TABLET NG SCH (09:42)
[2022-01-14] MEDS: venlafaxine 37.5mg tablet NG SCH ×2 (09:43→20:36)
[2022-01-14] MEDS: lansoprazole 15mg solutab NG SCH (09:43)
[2022-01-14] MEDS: lactobacillus rhamnosus 10,000 MMU CELLS/CAPSULE NG SCH ×2 (09:43→20:37)
[2022-01-14] MEDS: loratadine 10mg tablet NG SCH (09:44)
[2022-01-14] MEDS: metoprolol tartrate 25mg tablet NG SCH ×2 (09:44→20:37)
[2022-01-14] MEDS: QUEtiapine 25mg tablet NG SCH ×2 (09:45→20:37)
[2022-01-14] MEDS: nystatin 15 GM powder TP SCH ×3 (09:45→21:10)
[2022-01-14] MEDS: furosemide 40mg/4ml inj IV SCH ×2 (09:47→20:36)
[2022-01-14] MEDS: methylPREDNISolone sod succ/PF 40mg inj. IV SCH (09:47)
--- NOTE | 2022-01-14 11:27 | NUR ---
Reassessment: Pt remains intubated. TF held at this time pending possible trach and PEG placement. Pt receiving D5NS at 85 mL/hr per RN at critical care rounds providing 347 kcal/day. Serum K, Mag, and Phos are elevated, MD aware and pt receiving routine Phos binder. [facility] 01/13. Will continue to follow closely. Recommendations: 1. Once okay to resume TF, if pt continues receiving D5NS at 85 mL/hr continuous Vital HP at 50 ml/hr to provide 1200 ml total volume/day, 1200 kcal, 105 g protein, 1003 ml water 2. Additional 200 mL water flush Q4H; monitor serum Na; no changes to water flushes at this time per MD 3. Discontinue D5 while pt on TF if MD agreeable; if discontinued, change TF to Vital AF with 55 mL/hr goal rate 4. Jone packet BID with water flushes for wound healing needs 5. Continue routine Phos binder per MD 6. Consider routine anti-diarrheal 7. Prealbumin q Wednesday/ 8. Daily scaled weights Addendum: 01/14/22 at [address] Amended: Links added.
[2022-01-14] MEDS: Dakins solution (1/4 strength) 473ml solution TP SCH (12:30)
[2022-01-14] MEDS: nicotine 7mg patch - 24hr TD SCH (13:00)
--- NOTE | 2022-01-14 18:25 | NUR ---
Patient in room CICU 2009. I have received report from Travon CAROLINA and had the opportunity to ask questions and assume patient care.
[2022-01-14] MEDS: FENTANYL-0.9 % NACL/PF 100 ML IV PRN (19:57)
[2022-01-14] MEDS: Melatonin 3mg tablet NG SCH (20:36)
[2022-01-14] MEDS: insulin regular, human U-100 3ml vial - multi-dose SQ SCH (21:07)
[2022-01-14] MEDS: insulin glargine (Lantus) pen - multi-dose SQ SCH (21:08)
[2022-01-15] VITALS (35 sets, daily range): BP systolic 112–151; BP diastolic 25–47
[2022-01-15] MEDS: insulin regular, human U-100 3ml vial - multi-dose SQ SCH ×3 (02:41→20:55)
[2022-01-15 03:00] LABS: BASOPHILS % (AUTO) 0 % (0-1); EOSINOPHILS % (AUTO) 0.9 % (0-6); HEMATOCRIT 22.2 % (35.0-45.0); HEMOGLOBIN 7.3 g/dl (12.0-16.0); LYMPHOCYTES # (AUTO) 0.2 X10'3 (1.1-4.8); LYMPHOCYTES % (AUTO) 3.5 % (21-51); MEAN CORPUSCULAR HEMOGLOBIN 28.8 PG (27.0-31.0); MEAN CORPUSCULAR HGB CONC 32.9 g/dL (33.0-36.5); MEAN CORPUSCULAR VOLUME 87.7 FL (78-98); MONOCYTES # (AUTO) 0.1 X10'3 (0-0.9); MONOCYTES % (AUTO) 2.6 % (2-12); NEUTROPHILS # (AUTO) 4.8 X10'3 (1.8-7.7); PLATELET COUNT 71 X10'3 (140-440); RED BLOOD COUNT 2.53 X10'6 (4.20-5.60); RED CELL DISTRIBUTION WIDTH 20.4 % (11.5-14.5); WHITE BLOOD COUNT 5.2 X10'3 (4.5-11.0)
[2022-01-15 03:08] LABS: ALANINE AMINOTRANSFERASE 90 U/L (12-78); ALBUMIN 1.5 G/DL (3.4-5.0); ALBUMIN/GLOBULIN RATIO 0.6 (1.1-1.5); ALKALINE PHOSPHATASE 88 IU/L (46-116); ANION GAP 14 (8-16); ASPARTATE AMINO TRANSFERASE 47 U/L (10-37); BILIRUBIN,TOTAL 0.3 MG/DL (0.1-1.0); CHLORIDE 104 MMOL/L (99-107); CREATININE 1.61 MG/DL (0.40-0.90); GLUCOSE 128 MG/DL (70-104); MAGNESIUM 2.3 MG/DL (1.5-2.4); PHOSPHORUS 7.6 MG/DL (2.3-4.5); POTASSIUM 5.1 MMOL/L (3.5-5.1); SODIUM 138 MMOL/L (135-145); TOTAL CARBON DIOXIDE 20.5 MMOL/L (24-32); eGFR 32 ML/MIN
[2022-01-15] MEDS: ipratropium/albuterol 3ml nebule NEB SCH ×6 (03:29→22:57)
[2022-01-15 04:19] LABS: ABG BASE EXCESS -6.1 mmol/L (-2.0-2.0); ABG HCO3 18.8 mmol/L (22.0-26.0); ABG OXYGEN SATURATION 96.8 % (94-97); ABG PO2 (T) 95.1 mmHg (75.0-100.0); ALLEN'S TEST Modified; FCOHb 0.5 % (0.0-3.9); FMetHb 0.1 % (0.0-1.5); FO2Hb 96.2 % (94-97); PATIENT TEMPERATURE 36.4; PEEP 5 cm H2O; RESPIRATORY RATE 16 b/min; TIDAL VOLUME 450 mL
[2022-01-15] MEDS: dextrose 5%-normal saline 1,000 ML IV SCH ×2 (04:24→23:18)
[2022-01-15 04:26] LABS: BLOOD UREA NITROGEN 169 MG/DL (7-18)
--- NOTE | 2022-01-15 05:02 | NUR ---
Larry Jerome called to notify of patients trending down hgb, he doesnt want to give any products as there are no signs of active bleeding.
--- NOTE | 2022-01-15 05:51 | NUR ---
Problems reprioritized. Patient report given, questions answered & plan of care reviewed with Christie Boo RN.
[2022-01-15] MEDS: budesonide 0.5mg/2ml UD nebule IH SCH ×2 (07:15→18:31)
[2022-01-15] MEDS: lansoprazole 15mg solutab NG SCH (07:48)
[2022-01-15] MEDS: furosemide 40mg/4ml inj IV SCH (07:49)
[2022-01-15] MEDS: methylPREDNISolone sod succ/PF 40mg inj. IV SCH (07:51)
[2022-01-15] MEDS: lactobacillus rhamnosus 10,000 MMU CELLS/CAPSULE NG SCH ×2 (07:52→20:43)
[2022-01-15] MEDS: ARIPIPRAZOLE 10 MG TABLET NG SCH (07:52)
[2022-01-15] MEDS: loratadine 10mg tablet NG SCH (07:52)
[2022-01-15] MEDS: QUEtiapine 25mg tablet NG SCH ×2 (07:53→20:42)
[2022-01-15] MEDS: venlafaxine 37.5mg tablet NG SCH ×2 (07:53→20:42)
[2022-01-15] MEDS: nicotine 7mg patch - 24hr TD SCH (07:55)
[2022-01-15] MEDS: nystatin 15 GM powder TP SCH ×3 (07:55→20:44)
[2022-01-15] MEDS: metoprolol tartrate 25mg tablet NG SCH (07:57)
[2022-01-15] MEDS: Dakins solution (1/4 strength) 473ml solution TP SCH (08:00)
[2022-01-15] MEDS: sevelamer carbonate 0.8gm powder pkt NG SCH ×3 (08:25→20:42)
[2022-01-15] MEDS: ARGININE/GLUTAMINE/CALCIUM BMB (JUVEN 19.3GM PKT) 1 EACH POWD.PACK NG SCH ×2 (08:28→20:43)
[2022-01-15 20:22] LABS: OCCULT BLOOD STOOL NEGATIVE (Neg)
[2022-01-15] MEDS: Melatonin 3mg tablet NG SCH (20:43)
[2022-01-15] MEDS: insulin glargine (Lantus) pen - multi-dose SQ SCH (21:00)
[2022-01-15] MEDS ORDERED: diphenhydrAMINE 50 mg/ml inj IV ONE (21:25)
[2022-01-15] MEDS ORDERED: hydrocortisone sod succ/PF 100mg/2ml inj. IV SCH (21:45)
[2022-01-15] MEDS ORDERED: furosemide 40mg/4ml inj IV ONE (23:25)
[2022-01-16] VITALS (27 sets, daily range): BP systolic 115–145; BP diastolic 22–37
[2022-01-16] MEDS: ipratropium/albuterol 3ml nebule NEB SCH ×6 (03:10→23:40)
[2022-01-16 03:25] LABS: ABG HCO3 18.7 mmol/L (22.0-26.0); ABG OXYGEN SATURATION 96.5 % (94-97); ABG PCO2 (T) 32.5 mmHg (32.0-45.0); ABG PO2 (T) 90.7 mmHg (75.0-100.0); ALLEN'S TEST POSITIVE; FCOHb 0.3 % (0.0-3.9); FMetHb 0.4 % (0.0-1.5); FO2Hb 95.8 % (94-97); PATIENT TEMPERATURE 36.3; PEEP 5 cm H2O; TOTAL HEMOGLOBIN 8.3 G/dl (12.0-16.0)
[2022-01-16 05:23] LABS: BASOPHILS % (AUTO) 0.2 % (0-1); EOSINOPHILS # (AUTO) 0.2 X10'3 (0-0.9); HEMATOCRIT 25.5 % (35.0-45.0); HEMOGLOBIN 8.4 g/dl (12.0-16.0); LYMPHOCYTES # (AUTO) 0.3 X10'3 (1.1-4.8); LYMPHOCYTES % (AUTO) 6.8 % (21-51); MEAN CORPUSCULAR HGB CONC 32.9 g/dL (33.0-36.5); MEAN CORPUSCULAR VOLUME 88.2 FL (78-98); MONOCYTES # (AUTO) 0.1 X10'3 (0-0.9); MONOCYTES % (AUTO) 2.8 % (2-12); NEUTROPHILS # (AUTO) 4.4 X10'3 (1.8-7.7); NEUTROPHILS % (AUTO) 87.2 % (42-75); PLATELET COUNT 62 X10'3 (140-440); RED BLOOD COUNT 2.89 X10'6 (4.20-5.60); RED CELL DISTRIBUTION WIDTH 19.9 % (11.5-14.5)
[2022-01-16 05:24] LABS: ALANINE AMINOTRANSFERASE 110 U/L (12-78); ALBUMIN 1.4 G/DL (3.4-5.0); ALBUMIN/GLOBULIN RATIO 0.6 (1.1-1.5); ALKALINE PHOSPHATASE 90 IU/L (46-116); ANION GAP 15 (8-16); ASPARTATE AMINO TRANSFERASE 48 U/L (10-37); BILIRUBIN,TOTAL 0.5 MG/DL (0.1-1.0); CHLORIDE 108 MMOL/L (99-107); CREATININE 1.49 MG/DL (0.40-0.90); GLUCOSE 186 MG/DL (70-104); MAGNESIUM 1.9 MG/DL (1.5-2.4); PHOSPHORUS 6.3 MG/DL (2.3-4.5); POTASSIUM 4.4 MMOL/L (3.5-5.1); SODIUM 142 MMOL/L (135-145); TOTAL CARBON DIOXIDE 19.5 MMOL/L (24-32); TOTAL PROTEIN 3.8 G/DL (6.4-8.2); eGFR 35 ML/MIN
[2022-01-16 05:48] LABS: BLOOD UREA NITROGEN 162 MG/DL (7-18); BUN/CREATININE RATIO 108.7 (6.6-38.0)
[2022-01-16] MEDS: budesonide 0.5mg/2ml UD nebule IH SCH ×2 (07:23→20:41)
[2022-01-16] MEDS: ARGININE/GLUTAMINE/CALCIUM BMB (JUVEN 19.3GM PKT) 1 EACH POWD.PACK NG SCH ×2 (08:00→20:19)
[2022-01-16] MEDS: furosemide 40mg/4ml inj IV SCH (08:00)
[2022-01-16] MEDS: Dakins solution (1/4 strength) 473ml solution TP SCH (08:00)
[2022-01-16] MEDS: sevelamer carbonate 0.8gm powder pkt NG SCH ×3 (08:00→21:54)
[2022-01-16] MEDS: nystatin 15 GM powder TP SCH ×3 (08:00→21:54)
[2022-01-16] MEDS: lansoprazole 15mg solutab NG SCH (09:02)
[2022-01-16] MEDS: loratadine 10mg tablet NG SCH (09:03)
[2022-01-16] MEDS: QUEtiapine 25mg tablet NG SCH ×2 (09:06→20:18)
[2022-01-16] MEDS: nicotine 7mg patch - 24hr TD SCH (09:06)
[2022-01-16] MEDS: lactobacillus rhamnosus 10,000 MMU CELLS/CAPSULE NG SCH ×2 (09:06→20:18)
[2022-01-16] MEDS: venlafaxine 37.5mg tablet NG SCH ×2 (09:07→20:18)
[2022-01-16] MEDS: ARIPIPRAZOLE 10 MG TABLET NG SCH (09:07)
[2022-01-16] MEDS: methylPREDNISolone sod succ/PF 40mg inj. IV SCH (09:12)
[2022-01-16] MEDS: dextrose 5%-normal saline 1,000 ML IV SCH ×3 (11:04→22:50)
[2022-01-16] MEDS ORDERED: MIDAZolam 1 MG/ML 5ML VIAL ONE (12:30)
[2022-01-16] MEDS ORDERED: fentaNYL/PF 50MCG/1 ML 2ML syringe ONE (12:30)
[2022-01-16] MEDS ORDERED: LIDOcaine Viscous 15ml cup ONE (12:31)
--- NOTE | 2022-01-16 18:26 | NUR ---
Patient in room CICU 2009. I have received report from Travon CAROLINA and had the opportunity to ask questions and assume patient care.
[2022-01-16] MEDS: insulin glargine (Lantus) pen - multi-dose SQ SCH (20:29)
[2022-01-16] MEDS: Melatonin 3mg tablet NG SCH (21:54)
[2022-01-17] VITALS (34 sets, daily range): BP systolic 110–182; BP diastolic 20–52
[2022-01-17] MEDS: ipratropium/albuterol 3ml nebule NEB SCH ×6 (03:05→22:49)
[2022-01-17 03:07] LABS: BASOPHILS % (AUTO) 0.2 % (0-1); EOSINOPHILS # (AUTO) 0.2 X10'3 (0-0.9); HEMATOCRIT 24.9 % (35.0-45.0); HEMOGLOBIN 8.2 g/dl (12.0-16.0); LYMPHOCYTES # (AUTO) 0.3 X10'3 (1.1-4.8); LYMPHOCYTES % (AUTO) 5.6 % (21-51); MEAN CORPUSCULAR HEMOGLOBIN 28.9 PG (27.0-31.0); MEAN CORPUSCULAR HGB CONC 32.9 g/dL (33.0-36.5); MEAN CORPUSCULAR VOLUME 87.9 FL (78-98); MEAN PLATELET VOLUME 12.5 FL (7.4-10.4); MONOCYTES # (AUTO) 0.2 X10'3 (0-0.9); MONOCYTES % (AUTO) 3.1 % (2-12); NEUTROPHILS # (AUTO) 4.4 X10'3 (1.8-7.7); NEUTROPHILS % (AUTO) 88.1 % (42-75); PLATELET COUNT 66 X10'3 (140-440); RED BLOOD COUNT 2.83 X10'6 (4.20-5.60); RED CELL DISTRIBUTION WIDTH 19.8 % (11.5-14.5)
--- NOTE | 2022-01-17 03:15 | NUR ---
Patient appears to be sleeping. Nods head or shrugs shoulders in response to questions when awake. Denies pain. Sats 98% on 25% FiO2 on spontaneous ventilation setting on the ventilator.
[2022-01-17 03:16] LABS: ALANINE AMINOTRANSFERASE 109 U/L (12-78); ALBUMIN 1.5 G/DL (3.4-5.0); ALBUMIN/GLOBULIN RATIO 0.6 (1.1-1.5); ALKALINE PHOSPHATASE 103 IU/L (46-116); ANION GAP 13 (8-16); ASPARTATE AMINO TRANSFERASE 41 U/L (10-37); BILIRUBIN,TOTAL 0.3 MG/DL (0.1-1.0); BLOOD UREA NITROGEN 149 MG/DL (7-18); BUN/CREATININE RATIO 103.5 (6.6-38.0); CALCIUM 7.3 MG/DL (8.5-10.1); CHLORIDE 109 MMOL/L (99-107); CREATININE 1.44 MG/DL (0.40-0.90); GLUCOSE 117 MG/DL (70-104); MAGNESIUM 1.7 MG/DL (1.5-2.4); PHOSPHORUS 5.8 MG/DL (2.3-4.5); POTASSIUM 4.3 MMOL/L (3.5-5.1); SODIUM 143 MMOL/L (135-145); TOTAL CARBON DIOXIDE 20.8 MMOL/L (24-32); TOTAL PROTEIN 4.1 G/DL (6.4-8.2); eGFR 37 ML/MIN
[2022-01-17 03:24] LABS: ABG BASE EXCESS -7.8 mmol/L (-2.0-2.0); ABG HCO3 16.4 mmol/L (22.0-26.0); ABG PCO2 (T) 28.3 mmHg (32.0-45.0); ABG PO2 (T) 99.2 mmHg (75.0-100.0); ALLEN'S TEST POSITIVE; FCOHb 0.3 % (0.0-3.9); FMetHb 0.4 % (0.0-1.5); FO2Hb 96.3 % (94-97); PATIENT TEMPERATURE 36.4; PEEP 5 cm H2O; TOTAL HEMOGLOBIN 9.1 G/dl (12.0-16.0)
[2022-01-17 04:11] LABS: ANISOCYTOSIS 2+; LARGE PLATELETS MODERATE; PLATELET ESTIMATE DECREASED
[2022-01-17] MEDS: dextrose 5%-normal saline 1,000 ML IV SCH ×2 (05:49→15:15)
--- NOTE | 2022-01-17 06:05 | NUR ---
Problems reprioritized. Patient report given, questions answered & plan of care reviewed with Travon CAROLINA.
[2022-01-17] MEDS: budesonide 0.5mg/2ml UD nebule IH SCH ×2 (07:14→19:00)
[2022-01-17] MEDS: furosemide 40mg/4ml inj IV SCH (07:38)
[2022-01-17] MEDS: lansoprazole 15mg solutab NG SCH (07:38)
[2022-01-17] MEDS: lactobacillus rhamnosus 10,000 MMU CELLS/CAPSULE NG SCH ×2 (07:38→21:01)
[2022-01-17] MEDS: ARIPIPRAZOLE 10 MG TABLET NG SCH (07:38)
[2022-01-17] MEDS: venlafaxine 37.5mg tablet NG SCH ×2 (07:38→21:01)
[2022-01-17] MEDS: methylPREDNISolone sod succ/PF 40mg inj. IV SCH (07:39)
[2022-01-17] MEDS: sevelamer carbonate 0.8gm powder pkt NG SCH ×3 (07:39→21:02)
[2022-01-17] MEDS: QUEtiapine 25mg tablet NG SCH ×2 (07:39→21:02)
[2022-01-17] MEDS: loratadine 10mg tablet NG SCH (07:39)
[2022-01-17] MEDS: nicotine 7mg patch - 24hr TD SCH (08:00)
[2022-01-17] MEDS: nystatin 15 GM powder TP SCH ×3 (08:00→21:02)
[2022-01-17] MEDS: Dakins solution (1/4 strength) 473ml solution TP SCH (08:00)
[2022-01-17] MEDS: ARGININE/GLUTAMINE/CALCIUM BMB (JUVEN 19.3GM PKT) 1 EACH POWD.PACK NG SCH ×2 (08:00→21:00)
--- NOTE | 2022-01-17 10:39 | NUR ---
Reassessment: Pt remains intubated and tolerating TF at goal rate with GRV WNL. Trach and PEG placement still pending at this time per EMR. LBM 01/16 per I&O. No changes to nutrition interventions at this time. Will continue to follow closely. Recommendations: 1. Once okay to resume TF, if pt continues receiving D5NS at 85 mL/hr continuous Vital HP at 50 ml/hr to provide 1200 ml total volume/day, 1200 kcal, 105 g protein, 1003 ml water 2. Additional 200 mL water flush Q4H; monitor serum Na; no changes to water flushes at this time per MD 3. Discontinue D5 while pt on TF if MD agreeable; if discontinued, change TF to Vital AF with 55 mL/hr goal rate 4. Jone packet BID with water flushes for wound healing needs 5. Continue routine Phos binder per MD 6. Consider routine anti-diarrheal if pt with persistent diarrhea 7. Prealbumin q Wednesday/ 8. Daily scaled weights Addendum: 01/17/22 at [address] Amended: Links added.
[2022-01-17] MEDS: furosemide 20 MG/2 ML vial IV SCH ×2 (14:15→21:00)
--- NOTE | 2022-01-17 18:30 | NUR ---
Patient in room [facility] 2009. I have received report from Travon CAROLINA and had the opportunity to ask questions and assume patient care. Addendum: 01/17/22 at 2245 by Faye May RN Amended: Links added.
[2022-01-17] MEDS: insulin glargine (Lantus) pen - multi-dose SQ SCH (21:00)
[2022-01-17] MEDS: Melatonin 3mg tablet NG SCH (21:01)
[2022-01-18] VITALS (30 sets, daily range): BP systolic 117–173; BP diastolic 3–49
[2022-01-18] MEDS: FENTANYL-0.9 % NACL/PF 100 ML IV PRN (00:13)
[2022-01-18 01:42] LABS: BASOPHILS % (AUTO) 0.3 % (0-1); EOSINOPHILS # (AUTO) 0.1 X10'3 (0-0.9); HEMATOCRIT 25.1 % (35.0-45.0); HEMOGLOBIN 8.2 g/dl (12.0-16.0); LYMPHOCYTES # (AUTO) 0.3 X10'3 (1.1-4.8); LYMPHOCYTES % (AUTO) 5.9 % (21-51); MEAN CORPUSCULAR HEMOGLOBIN 28.9 PG (27.0-31.0); MEAN CORPUSCULAR HGB CONC 32.6 g/dL (33.0-36.5); MEAN CORPUSCULAR VOLUME 88.8 FL (78-98); MONOCYTES # (AUTO) 0.1 X10'3 (0-0.9); MONOCYTES % (AUTO) 3.1 % (2-12); NEUTROPHILS # (AUTO) 4.1 X10'3 (1.8-7.7); NEUTROPHILS % (AUTO) 87.7 % (42-75); PLATELET COUNT 75 X10'3 (140-440); RED BLOOD COUNT 2.83 X10'6 (4.20-5.60); WHITE BLOOD COUNT 4.6 X10'3 (4.5-11.0)
[2022-01-18 01:58] LABS: ALANINE AMINOTRANSFERASE 122 U/L (12-78); ALBUMIN 1.5 G/DL (3.4-5.0); ALBUMIN/GLOBULIN RATIO 0.6 (1.1-1.5); ALKALINE PHOSPHATASE 111 IU/L (46-116); ANION GAP 14 (8-16); ASPARTATE AMINO TRANSFERASE 37 U/L (10-37); BILIRUBIN,TOTAL 0.3 MG/DL (0.1-1.0); CALCIUM 7.5 MG/DL (8.5-10.1); CHLORIDE 110 MMOL/L (99-107); CREATININE 1.35 MG/DL (0.40-0.90); GLUCOSE 120 MG/DL (70-104); MAGNESIUM 1.6 MG/DL (1.5-2.4); PHOSPHORUS 4.9 MG/DL (2.3-4.5); POTASSIUM 4.1 MMOL/L (3.5-5.1); SODIUM 146 MMOL/L (135-145); TOTAL CARBON DIOXIDE 22.4 MMOL/L (24-32); TOTAL PROTEIN 4.2 G/DL (6.4-8.2); eGFR 39 ML/MIN
[2022-01-18 02:08] LABS: BLOOD UREA NITROGEN 151 MG/DL (7-18); BUN/CREATININE RATIO 111.9 (6.6-38.0)
[2022-01-18 02:51] LABS: LARGE PLATELETS FEW; PLATELET ESTIMATE DECREASED
[2022-01-18 02:52] LABS: ANISOCYTOSIS 2+
[2022-01-18] MEDS: furosemide 20 MG/2 ML vial IV SCH ×4 (02:59→20:39)
[2022-01-18] MEDS: dextrose 5%-normal saline 1,000 ML IV SCH (02:59)
[2022-01-18] MEDS: ipratropium/albuterol 3ml nebule NEB SCH ×6 (03:22→23:20)
[2022-01-18 03:42] LABS: ABG BASE EXCESS -9.3 mmol/L (-2.0-2.0); ABG PCO2 (T) 31.4 mmHg (32.0-45.0); ABG PO2 (T) 90.2 mmHg (75.0-100.0); ALLEN'S TEST POSITIVE; FCOHb 0.3 % (0.0-3.9); FMetHb 0.3 % (0.0-1.5); FO2Hb 95.4 % (94-97); PATIENT TEMPERATURE 36.4; PEEP 5 cm H2O; TOTAL HEMOGLOBIN 9.8 G/dl (12.0-16.0)
--- NOTE | 2022-01-18 06:22 | NUR ---
Problems reprioritized. Patient report given, questions answered & plan of care reviewed with Travon CAROLINA.
[2022-01-18] MEDS: budesonide 0.5mg/2ml UD nebule IH SCH ×2 (07:11→19:04)
[2022-01-18] MEDS ORDERED: lidocaine 1%/epinephrine 1:100,000 inj. 50ml multi-dose vial ONE (07:37)
[2022-01-18] MEDS ORDERED: sevoflurane 250ml liquid IH ONE (07:53)
[2022-01-18] MEDS: nicotine 7mg patch - 24hr TD SCH (08:00)
[2022-01-18] MEDS: ARGININE/GLUTAMINE/CALCIUM BMB (JUVEN 19.3GM PKT) 1 EACH POWD.PACK NG SCH ×2 (08:00→20:40)
[2022-01-18] MEDS: Dakins solution (1/4 strength) 473ml solution TP SCH (08:00)
[2022-01-18] MEDS ORDERED: midazolam 1 mg/ML 2ml injection ONE (08:03)
[2022-01-18] MEDS ORDERED: fentaNYL /PF 50mcg/ml 5ml ampule ONE (08:04)
[2022-01-18] MEDS: sevelamer carbonate 0.8gm powder pkt NG SCH ×3 (08:45→20:41)
[2022-01-18] MEDS ORDERED: ceFAZolin 1000mg inj ONE (08:58)
[2022-01-18] MEDS: QUEtiapine 25mg tablet NG SCH ×2 (09:19→20:41)
[2022-01-18] MEDS: venlafaxine 37.5mg tablet NG SCH ×2 (09:19→20:40)
[2022-01-18] MEDS: lactobacillus rhamnosus 10,000 MMU CELLS/CAPSULE NG SCH ×2 (09:19→20:40)
[2022-01-18] MEDS: ARIPIPRAZOLE 10 MG TABLET NG SCH (09:19)
[2022-01-18] MEDS: nystatin 15 GM powder TP SCH ×3 (09:20→20:41)
[2022-01-18] MEDS: loratadine 10mg tablet NG SCH (09:20)
[2022-01-18] MEDS: lansoprazole 15mg solutab NG SCH (09:20)
[2022-01-18] MEDS: methylPREDNISolone sod succ/PF 40mg inj. IV SCH (09:21)
[2022-01-18] MEDS: dextrose 5%-1/2 normal saline 1,000 ML IV SCH ×2 (10:20→20:42)
[2022-01-18] MEDS: HYDROcodone/acetaminophen 10/325mg tab PO PRN ×2 (17:43→21:58)
--- NOTE | 2022-01-18 19:19 | NUR ---
Pts BG 126. I was told the MD didn't want her restarted on insulin untill she met criteria again (2 BG >160). So no coverage given tonight.
[2022-01-18] MEDS: insulin glargine (Lantus) pen - multi-dose SQ SCH (20:33)
[2022-01-18] MEDS: Melatonin 3mg tablet NG SCH (20:41)
[2022-01-19] VITALS (20 sets, daily range): BP systolic 111–170; BP diastolic 25–53
[2022-01-19] MEDS: furosemide 20 MG/2 ML vial IV SCH ×3 (01:56→14:01)
[2022-01-19] MEDS: HYDROcodone/acetaminophen 10/325mg tab PO PRN (01:56)
[2022-01-19 02:36] LABS: ALANINE AMINOTRANSFERASE 119 U/L (12-78); ALBUMIN 1.5 G/DL (3.4-5.0); ALBUMIN/GLOBULIN RATIO 0.5 (1.1-1.5); ALKALINE PHOSPHATASE 128 IU/L (46-116); ANION GAP 15 (8-16); ASPARTATE AMINO TRANSFERASE 36 U/L (10-37); BILIRUBIN,TOTAL 0.3 MG/DL (0.1-1.0); BLOOD UREA NITROGEN 143 MG/DL (7-18); BUN/CREATININE RATIO 109.2 (6.6-38.0); CALCIUM 7.6 MG/DL (8.5-10.1); CHLORIDE 109 MMOL/L (99-107); CREATININE 1.31 MG/DL (0.40-0.90); GLUCOSE 122 MG/DL (70-104); MAGNESIUM 1.5 MG/DL (1.5-2.4); PHOSPHORUS 4.3 MG/DL (2.3-4.5); SODIUM 146 MMOL/L (135-145); TOTAL CARBON DIOXIDE 21.6 MMOL/L (24-32); TOTAL PROTEIN 4.3 G/DL (6.4-8.2); eGFR 41 ML/MIN
[2022-01-19] MEDS: ipratropium/albuterol 3ml nebule NEB SCH ×3 (02:59→10:56)
[2022-01-19 03:00] LABS: BASOPHILS % (AUTO) 0.2 % (0-1); EOSINOPHILS # (AUTO) 0.1 X10'3 (0-0.9); EOSINOPHILS % (AUTO) 2.2 % (0-6); HEMATOCRIT 25.5 % (35.0-45.0); HEMOGLOBIN 8.4 g/dl (12.0-16.0); LYMPHOCYTES # (AUTO) 0.4 X10'3 (1.1-4.8); LYMPHOCYTES % (AUTO) 6.5 % (21-51); MEAN CORPUSCULAR HEMOGLOBIN 29.3 PG (27.0-31.0); MEAN CORPUSCULAR HGB CONC 32.8 g/dL (33.0-36.5); MEAN CORPUSCULAR VOLUME 89.3 FL (78-98); MEAN PLATELET VOLUME 12.2 FL (7.4-10.4); MONOCYTES # (AUTO) 0.2 X10'3 (0-0.9); MONOCYTES % (AUTO) 3.1 % (2-12); NEUTROPHILS # (AUTO) 5.2 X10'3 (1.8-7.7); PLATELET COUNT 80 X10'3 (140-440); RED BLOOD COUNT 2.85 X10'6 (4.20-5.60); RED CELL DISTRIBUTION WIDTH 19.8 % (11.5-14.5); WHITE BLOOD COUNT 5.9 X10'3 (4.5-11.0)
[2022-01-19 03:18] LABS: ABG BASE EXCESS -2.2 mmol/L (-2.0-2.0); ABG HCO3 22.9 mmol/L (22.0-26.0); ABG OXYGEN SATURATION 96.9 % (94-97); ABG PCO2 (T) 40.4 mmHg (32.0-45.0); ALLEN'S TEST POSITIVE; FCOHb 0.3 % (0.0-3.9); FMetHb 0.3 % (0.0-1.5); FO2Hb 96.3 % (94-97); PATIENT TEMPERATURE 36.9; PEEP 5 cm H2O; TOTAL HEMOGLOBIN 9.3 G/dl (12.0-16.0)
[2022-01-19 05:14] LABS: PLATELET ESTIMATE DECREASED
[2022-01-19 05:16] LABS: ANISOCYTOSIS 2+; LARGE PLATELETS MODERATE
--- NOTE | 2022-01-19 07:04 | NUR ---
Patient in room CICU 2009. I have received report from Tony CAROLINA and had the opportunity to ask questions and assume patient care.
[2022-01-19] MEDS: lactobacillus rhamnosus 10,000 MMU CELLS/CAPSULE NG SCH (07:16)
[2022-01-19] MEDS: ARIPIPRAZOLE 10 MG TABLET NG SCH (07:16)
[2022-01-19] MEDS: venlafaxine 37.5mg tablet NG SCH (07:18)
[2022-01-19] MEDS: QUEtiapine 25mg tablet NG SCH (07:20)
[2022-01-19] MEDS: lansoprazole 15mg solutab NG SCH (07:20)
[2022-01-19] MEDS: loratadine 10mg tablet NG SCH (07:20)
[2022-01-19] MEDS: nicotine 7mg patch - 24hr TD SCH (07:23)
[2022-01-19] MEDS: methylPREDNISolone sod succ/PF 40mg inj. IV SCH (07:27)
[2022-01-19] MEDS: budesonide 0.5mg/2ml UD nebule IH SCH (07:38)
[2022-01-19] MEDS: ARGININE/GLUTAMINE/CALCIUM BMB (JUVEN 19.3GM PKT) 1 EACH POWD.PACK NG SCH (07:41)
[2022-01-19] MEDS: sevelamer carbonate 0.8gm powder pkt NG SCH ×2 (07:41→12:42)
[2022-01-19] MEDS: nystatin 15 GM powder TP SCH ×2 (07:51→13:03)
[2022-01-19] MEDS: Dakins solution (1/4 strength) 473ml solution TP SCH ×2 (07:52→09:56)
[2022-01-19] MEDS: dextrose 5%-1/2 normal saline 1,000 ML IV SCH (09:39)
--- NOTE | 2022-01-19 11:01 | NUR ---
F/u 01/19: Pt s/p tracheostomy w/ no PEG placed given recent GI surgery w/ abdomen sutures per EMR. Pt to wean off D5/NS at 85ml/hr now participating in trach mist trials coming off vent support per residential caregiver at rounds. Machining Supervisor requests EN adjustment for when off D5; notified physician and RN of updated recs below. LBM 01/16 per RN. Will monitor for EN tolerance and adjustment needs. Recommendations: 1. Continuous TF per MD using Jevity 1.2 at 60ml/hr goal; to provide 1440ml volume/day, 1728 kcals, 1162ml water, and 80g protein. 2. Additional 200 mL water flush Q4H 3. Jone packet BID with water flushes for wound healing needs 4. Continue routine Phos binder per MD 5. bowel care per rx; initial substantial diarrhea now resolved per EMR 6. Prealbumin q Wednesday/; daily wts Addendum: 01/19/22 at [address] Amended: Links added.
--- NOTE | 2022-01-19 14:38 | NUR ---
Called and gave telephone patient handoff report to nurse Narda RN at [facility].
--- NOTE | 2022-01-19 14:54 | NUR ---
Jasvir stated that he had taken dentures and rings home.
--- NOTE | 2022-01-19 15:09 | NUR ---
Patient transferred to [facility] via [facility] on gurney with all belongings.
[2022-01-20] MEDS ORDERED: predniSONE 5mg tablet OGT SCH (08:00)
== END 2022-01-19 15:09 | DRG 3 ==
LOC: ER 19:52 → ED HOLD 12-07 00:15 → ORTHO 4S 12-07 16:10 → CICU 2S 12-11 18:29
PROVIDERS: ADMIT Internal Medicine; ATTEND Family Medicine
PROC: 30233N1 Transfusion of Nonautologous Red Blood Cells into Peripheral Vein, Percutaneous Approach (ICD-10-PCS; 2021-12-07)
PROC: 0DB68ZX Excision of Stomach, Via Natural or Artificial Opening Endoscopic, Diagnostic (ICD-10-PCS; 2021-12-07)
PROC: 0DBM8ZZ Excision of Descending Colon, Via Natural or Artificial Opening Endoscopic (ICD-10-PCS; 2021-12-08)
PROC: B4101ZZ Fluoroscopy of Abdominal Aorta using Low Osmolar Contrast (ICD-10-PCS; 2021-12-09)
PROC: B4141ZZ Fluoroscopy of Superior Mesenteric Artery using Low Osmolar Contrast (ICD-10-PCS; 2021-12-09)
PROC: B4151ZZ Fluoroscopy of Inferior Mesenteric Artery using Low Osmolar Contrast (ICD-10-PCS; 2021-12-09)
PROC: B41J1ZZ Fluoroscopy of Other Lower Arteries using Low Osmolar Contrast (ICD-10-PCS; 2021-12-09)
PROC: B4181ZZ Fluoroscopy of Bilateral Renal Arteries using Low Osmolar Contrast (ICD-10-PCS; 2021-12-09)
PROC: 5A1955Z Respiratory Ventilation, Greater than 96 Consecutive Hours (ICD-10-PCS; 2021-12-11)
PROC: 0BH17EZ Insertion of Endotracheal Airway into Trachea, Via Natural or Artificial Opening (ICD-10-PCS; 2021-12-11)
PROC: 041 Lower Arteries, Bypass (ICD-10-PCS; principal; 2021-12-11 14:01)
PROC: BW251ZZ Computerized Tomography (CT Scan) of Chest, Abdomen and Pelvis using Low Osmolar Contrast (ICD-10-PCS; 2021-12-12)
PROC: 30233K1 Transfusion of Nonautologous Frozen Plasma into Peripheral Vein, Percutaneous Approach (ICD-10-PCS; 2021-12-13)
PROC: 0WCG0ZZ Extirpation of Matter from Peritoneal Cavity, Open Approach (ICD-10-PCS; 2021-12-14)
PROC: 5A09357 Assistance with Respiratory Ventilation, Less than 24 Consecutive Hours, Continuous Positive Airway Pressure (ICD-10-PCS; 2021-12-28)
PROC: 5A1945Z Respiratory Ventilation, 24-96 Consecutive Hours (ICD-10-PCS; 2022-01-05)
PROC: 5A1955Z Respiratory Ventilation, Greater than 96 Consecutive Hours (ICD-10-PCS; 2022-01-11)
PROC: 30233R1 Transfusion of Nonautologous Platelets into Peripheral Vein, Percutaneous Approach (ICD-10-PCS; 2022-01-12)
PROC: 0B110F4 Bypass Trachea to Cutaneous with Tracheostomy Device, Open Approach (ICD-10-PCS; 2022-01-18)
DX: A41.9 Sepsis, unspecified organism (principal); N17.0 Acute kidney failure with tubular necrosis; K55.059 Acute (reversible) ischemia of intestine, part and extent unspecified; J18.9 Pneumonia, unspecified organism; K72.00 Acute and subacute hepatic failure without coma; G93.41 Metabolic encephalopathy; I50.33 Acute on chronic diastolic (congestive) heart failure; K29.61 Other gastritis with bleeding; R65.21 Severe sepsis with septic shock; K29.01 Acute gastritis with bleeding; K31.811 Angiodysplasia of stomach and duodenum with bleeding; K57.31 Diverticulosis of large intestine without perforation or abscess with bleeding; J96.01 Acute respiratory failure with hypoxia; D62 Acute posthemorrhagic anemia; E87.2 Acidosis; K55.1 Chronic vascular disorders of intestine; E44.0 Moderate protein-calorie malnutrition; E87.0 Hyperosmolality and hypernatremia; I13.0 Hypertensive heart and chronic kidney disease with heart failure and stage 1 through stage 4 chronic kidney disease, or unspecified chronic kidney disease; I82.622 Acute embolism and thrombosis of deep veins of left upper extremity; J44.0 Chronic obstructive pulmonary disease with (acute) lower respiratory infection; Z20.822 Contact with and (suspected) exposure to COVID-19; J44.9 Chronic obstructive pulmonary disease, unspecified; D63.8 Anemia in other chronic diseases classified elsewhere; E87.6 Hypokalemia; D69.6 Thrombocytopenia, unspecified; E11.22 Type 2 diabetes mellitus with diabetic chronic kidney disease; E11.51 Type 2 diabetes mellitus with diabetic peripheral angiopathy without gangrene; E11.649 Type 2 diabetes mellitus with hypoglycemia without coma; E78.5 Hyperlipidemia, unspecified; Z68.28 Body mass index [BMI] 28.0-28.9, adult; E83.39 Other disorders of phosphorus metabolism; E83.42 Hypomagnesemia; E83.51 Hypocalcemia; E87.5 Hyperkalemia; E88.09 Other disorders of plasma-protein metabolism, not elsewhere classified; F17.210 Nicotine dependence, cigarettes, uncomplicated; I25.10 Atherosclerotic heart disease of native coronary artery without angina pectoris; K59.00 Constipation, unspecified; K63.5 Polyp of colon; N18.9 Chronic kidney disease, unspecified; Z79.899 Other long term (current) drug therapy; Z86.711 Personal history of pulmonary embolism; Z87.11 Personal history of peptic ulcer disease; Z90.49 Acquired absence of other specified parts of digestive tract
CPT/HCPCS: 31645; 36245; 36415; 36430; 36573; 36600; 43239; 45385; 71045; 71250; 71260; 71275; 74019; 74174; 74176; 74177; 75726; 76770; 76937; 78452; 80047; 80048; 80053; 80202; 81001; 82272; 82570; 82803; 82948; 83540; 83550; 83605; 83690; 83735; 83880; 84100; 84132; 84134; 84145; 84156; 84295; 84300; 84443; 84478; 84484; 84540; 85007; 85008; 85018; 85025; 85027; 85610; 85730; 86022; 86885; 86900; 86901; 86920; 87040; 87070; 87075; 87077; 87081; 87088; 87102; 87186; 87207; 87324; 87449; 88305; 88342; 92508; 92616; 93005; 93017; 93306; 93308; 93970; 93971; 93976; 94002; 94003; 94640; 94660; 94664; 94667; 94668; 94760; 94799; 96365; 96375; 97110; 97161; 97164; 97530; 99152; 99153; 99285; A4314; A4333; A4615; A4618; A4620; A4623; A4628; A5200; A6196; A6209; A6212; A6213; A6250; A6253; A6258; A6402; A6446; A6449; A6550; A7000; A7015; A7521; A7525; A7526; A9500; A9900; C1729; C1751; C1758; C1760; C1769; C1773; C1894; C9113; C9290; G0269; G0378; J0131; J0171; J0360; J0461; J0690; J0694; J0706; J1100; J1200; J1450; J1644; J1720; J1815; J1940; J1956; J2185; J2248; J2250; J2270; J2370; J2405; J2543; J2704; J2720; J2785; J2920; J2930; J2997; J3010; J3370; J3475; J3480; J3490; J7030; J7040; J7042; J7050; J7060; J7070; J7120; L8670; P9016; P9035; P9045; P9047; P9059; Q9963; Q9967